=== PATIENT | female | born 1985 | race Caucasian/White ===

== ENCOUNTER 2017-05-23 13:47 | Emergency (ER) | payer MEDICAID, SELFPAY ==
[2017-05-23 13:48] VITALS: BP 152/71; PULSE 64; RESP 16; TEMP 36.3; O2SAT 100; BMI 33.0
--- NOTE | 2017-05-23 14:54 | ED.DCSUM_ITS ---
- ER Visit Summary Date of Service: 05/23/17 Chief Complaint: [Diarrhea] History of Present Illness: The patient is a 31 F [presents to the emergency department with chief complaint of diarrhea that she has had for about 4 days. Patient had multiple watery stools.] Patient has had a headache and some fatigue. Patient complains of hunger pains even though she eats. Patient denies any sick contacts. Today the patient became concerned because she saw something in her stool that looked like a small worm. Patient states that stool seemed somewhat formed and was not watery today. She has not been losing weight. She denies eating any undercooked food or traveling out of the country. Physical Examination: [HEENT-PERRLA, EOMI. Cranial nerves II through XII grossly intact. TMs clear. Mucous membranes moist. No adenopathy. Cardiovascular-regular rate and rhythm without murmur or ectopy Lungs-clear to auscultation, chest wall stable without crepitus or subcu emphysema Abdomen-normoactive bowel sounds, soft, nontender, no rebound or rigidity, no peritoneal signs. Extremities-intact ?4, normal range of motion, normal pulses, atraumatic] Test Results: [Stool was sent for enteric pathogens, ova and parasites, and culture.] Emergency Department Course and Treatment: [] Treatment Plan: [Patient is requested treatment for worms and will start on mebendazole] Disposition: [Discharge] Impression: [Diarrhea] This note was generated with Power Vision dictation software. It may contain incorrect words, spelling, and punctuation that were not noted in review of the chart prior to signing ED Disposition - Plan for ED Patient: Chief Complaint: Abd Pain Referrals: Care Physician,No Primary [Primary Care Provider] -
--- NOTE | 2017-05-23 14:54 | ED.DEP ---
ED Disposition - Plan for ED Patient: Chief Complaint: Abd Pain Instructions: ED Diet Vomiting Diarrhea, ED Gastroenteritis Report Pend Prescriptions: Mebendazole [Emverm] 100 mg PO BID #6 tab.chew Referrals: Care Physician,No Primary [Primary Care Provider] - Spike Lopez MD [STAFF PHYSICIAN] - 3-5 Days
--- NOTE | 2017-05-23 14:58 | ED.RN ---
PT REFUSED PERIPHERAL IV. ORDER CANCELLED.
[2017-05-23 15:23] VITALS: BP 114/66; PULSE 64; RESP 16
== END 2017-05-23 15:23 | disposition home or self-care (01) ==
LOC: ED 14:58
PROVIDERS: Emergency Provider Emergency Medicine
DX: R19.7 Diarrhea, unspecified (principal); Z72.0 Tobacco use
CPT/HCPCS: 87177; 87209; 87506; 99282

== ENCOUNTER → 2017-06-20 10:36 | Outpatient (CLI) | payer MEDICAID, SELFPAY ==
[2017-06-26 13:46] LABS: HPV Reflexed? NOT INDICATED
== END ==
PROVIDERS: Visit Provider Obstetrics & Gynecology
DX: Z12.4 Encounter for screening for malignant neoplasm of cervix (principal); Z12.72 Encounter for screening for malignant neoplasm of vagina
CPT/HCPCS: 88175; G0145

== ENCOUNTER → 2017-09-17 10:10 | Outpatient (CLI) | payer MEDICAID, SELFPAY ==
[2017-09-17 19:57] LABS: Chlamydia Trachomatis by PCR Negative (Negative); Neisserai gonorrhoeae by PCR Negative (Negative); Probe Check PASS; Sample Adequacy Control PASS; Specimen Processing Control PASS
== END ==
PROVIDERS: Visit Provider Obstetrics & Gynecology
DX: Z11.3 Encounter for screening for infections with a predominantly sexual mode of transmission (principal)
CPT/HCPCS: 87491; 87591

== ENCOUNTER 2020-06-02 09:51 | Emergency (ER) | payer MEDICAID, SELFPAY ==
[2020-06-02 09:52] VITALS: BP 119/79; PULSE 68; RESP 18; TEMP 36.4; O2SAT 99; BMI 40.3
--- NOTE | 2020-06-02 10:22 | RAD_ITS ---
STUDY: X-RAY CHEST REASON FOR EXAM: Female, 34 years old. Dyspnea TECHNIQUE: Single AP portable view of the chest. COMPARISON: None. FINDINGS: The lungs are clear and expanded. There is no demonstrated pleural abnormality. Normal size heart. Normal mediastinum and roya. Normal visualized pulmonary arteries. Normal visualized aortic arch and descending thoracic aorta. Normal visualized thoracic spine. Normal visualized ribs, clavicles, and shoulders. There is no demonstrated abnormality of the visualized soft tissue structures of the upper abdomen. RAD/Chest 1 View (Portable) IMPRESSION: Normal x-ray examination of the chest. Electronically Signed: Jimmy Perla MD at 10:46 EDT , Service support ,
--- NOTE | 2020-06-02 10:22 | EKG12_ITS ---
Test Reason : CP Blood Pressure : / mmHG Vent. Rate : 065 BPM Atrial Rate : 065 BPM P-R Int : 152 ms QRS Dur : 094 ms QT Int : 400 ms P-R-T Axes : 031 051 030 degrees QTc Int : 416 ms Normal sinus rhythm with sinus arrhythmia Normal ECG Confirmed by CHADWICK FAIR, SOTO ([id number]), digital editor KAREN PINZON ([id number]) on 06/06/2020 1:28:20 PM Referred By: Confirmed By:EMILI GENAO MD
--- NOTE | 2020-06-02 10:22 | ED.VIS.GEN ---
History of Present Illness Chief Complaint: Bite Informant: Patient Narrative: Patient states that 4 days ago she was bit by a yellow spider on her left ear multiple times. She states the ear is red. She has an itchy sensation coming down her lateral left neck anteriorly. She states that she is a smoker. This morning she attempted to cough and it took her longer than normal and more force to expectorate some phlegm. She tells me that now she has like a burning sensation in her chest. At work her employer wanted her to be evaluated. Patient denies any fevers. No diarrhea or vomiting. She has not worn any earrings for months. She denies any drainage out of the ear holes. Past Medical History - Allergies and Home Meds Allergies/Adverse Reactions: Allergies No Known Allergies Allergy (Verified 06/02/20 09:54) Primary Care Physician: Palak Gonzalez MD [STAFF PHYSICIAN] - 1 Week if not improving Past Medical History: None Surgical History: noncontributory Lives: With Family Smoking Status: Current every day smoker Drugs: None Review of Systems General: Denies: Chills, Fever, Sweats Eyes: Denies: Visual changes - bilaterally, Diplopia ENT: Reports: Left ear pain. Denies: Rhinorrhea, Sore throat Cardiovascular: Reports: Chest pain. Denies: Palpitations Respiratory: Reports: Dyspnea, Cough. Denies: Dyspnea on exertion Gastrointestinal: Denies: Abdominal pain, Nausea, Vomiting, Diarrhea, Melena, Hematochezia Genitourinary: Denies: Dysuria, Hematuria, Frequency Musculoskeletal: Reports: Neck pain - Neck itching. Denies: Back pain, Extremity Pain Skin: Denies: Rash, Wounds Neurological: Denies: Headache, Weakness, Numbness Physical Exam Vital Signs/Narrative: Vital Signs Temp Pulse Resp BP Pulse Ox 06/02/20 09:52 97.6 F L 68 18 119/79 99 Inital Vital Signs reviewed: Yes General: Well nourished, Well developed, No Acute Distress Head: Normocephalic, Atraumatic Eyes: Perrl, EOMI ENT: Moist mucous membranes, No rhinorrhea, - - The right inferior earlobe is erythematous and mildly swollen when compared to left. No drainage. No abscess noted. There are few scattered lymph nodes on the left anterior lymph node chain. All less than 1 cm. Ear canal normal Neck: Supple, Nontender Cardiovascular: Regular rate, Regular rhythm, No murmurs Respiratory: No distress, CTA bilaterally, Chest nontender Abdomen: Soft, Nontender, Nondistended, Normal bowel sounds Back: Nontender, Normal Inspection Extremities: Nontender, No edema Skin: Normal color, No rash Neurological: Alert, Oriented x3, Cranial nerves II-XII grossly intact, Normal Strength, Normal Sensation Psychological: Normal affect, Normal Mood Diagnostic/Tx/Re-eval Clinical Impression(s) from Imaging Studies Chest X-Ray 06/02/20 10:22 IMPRESSION: Normal x-ray examination of the chest. Electronically Signed: Jimmy Perla MD at 10:46 EDT , Service support , - EKG Initial EKG Interpretation: Sinus Rhythm - EKG demonstrates a normal sinus rhythm with sinus arrhythmia at a rate of 65 no concerning features of ACS or ectopy. - Medical Decision Making My interpretation of the single view portable chest x-ray is no acute process. Think the patient's chest discomfort is most likely due to her straining to cough this morning. As far as the ear we will treat with Keflex. Follow-up with primary care if not improving return if worsening or concerns ED Disposition - Plan for ED Patient: Disposition: Home or Assisted Living Diagnosis: Cellulitis of left ear, Chest pain Instructions: ED Cellulitis Prescriptions: Cephalexin [Keflex] 500 mg PO Q6 #40 capsule Transmission Status: Received by [facility] [id number] Additional Instructions: Follow-up with your primary care physician in 1 week if not improving or any concerns
== END 2020-06-02 11:39 | disposition home or self-care (01) ==
PROVIDERS: Emergency Provider Emergency Medicine; PCP Nurse Practitioner Family
DX: H60.12 Cellulitis of left external ear (principal); R07.9 Chest pain, unspecified; F17.200 Nicotine dependence, unspecified, uncomplicated
CPT/HCPCS: 71045; 93005; 99282

== ENCOUNTER 2022-07-14 17:29 | Emergency (ER) | payer MEDICAID, SELFPAY ==
[2022-07-14 17:30] VITALS: BP 151/88; PULSE 109; RESP 16; TEMP 37.2; O2SAT 100; BMI 43.1
--- NOTE | 2022-07-14 17:43 | EX.ED.DYSGE1 ---
HPI History of Present Illness Chief Complaint: Sore Throat Informant: patient Onset/Context/Timing Onset: Today Current Severity: Moderate Maximum Severity: Moderate Narrative Narrative: Patient presents secondary to sore throat, headache, body aches, fever. She states symptoms started this morning. No significant cough. She took Tylenol earlier this morning for her fever. [facility] Medical History Anxiety and depression Hx of gastroesophageal reflux (GERD) Neuropathy Home Medications escitalopram oxalate 5 mg tablet 20 mg PO DAILY 06/02/20 [History Last Taken Unknown] gabapentin 300 mg capsule 800 mg PO Q8 06/02/20 [History Last Taken Unknown] ibuprofen 800 mg tablet 800 mg PO DAILY 07/14/22 [History Last Taken Unknown] omeprazole 20 mg capsule,delayed release 20 mg PO DAILY 07/14/22 [History Last Taken Unknown] Allergy/AdvReac Type Severity Reaction Status Date / Time No Known Allergies Allergy Verified 07/14/22 17:31 Social History Smoking Status: Current every day smoker tobacco type: cigarettes ROS ROS ED Constitutional Constitutional ED: Reports chills and fever(s) Eyes Eyes: Denies change in vision or discharge from eye(s) ENT ENT ED: Reports sore throat; Denies discharge from eye(s) or rhinorrhea Cardiovascular Cardiovascular: Denies chest pain or palpitations Respiratory/Chest Respiratory/Chest: Denies cough or dyspnea Gastrointestinal Gastrointestinal: Denies abdominal pain, diarrhea, nausea or vomiting Genitourinary Genitourinary ED: Denies difficulty urinating or dysuria Musculoskeletal Musculoskeletal: Reports myalgias; Denies back pain or extremity pain Integumentary Denies Abrasions or rash Neurologic Neurologic: Reports headache(s); Denies weakness Psychiatric Psychiatric: Denies anxiety or depression Allergic/Immunologic Allergic/Immunologic ED: Denies lip swelling or urticaria EXAM Physical Exam Const Vital Signs: 07/14/22 17:30 07/14/22 17:57 Temperature 98.9 F Temperature Source Temporal Pulse Rate 109 H Respiratory Rate 16 Respiratory Effort Normal Non-Labored Blood Pressure 151/88 H Blood Pressure Mean 109 Pulse Ox 100 Oxygen Delivery Method Room Air Positive well nourished and well developed General Appearance ED: well developed HEENT Reports normocephalic and head/scalp atraumatic HEENT Narrative: Patient speaks with a strong voice and tolerate secretions well. Posterior pharynx examination reveals minimal erythema. Uvula midline. Eyes PERRL and EOMs intact bilaterally Neck supple Chest Wall inspection of chest normal and palpation of chest normal Resp normal respiratory effort and clear to auscultation bilaterally Cardio regular rate and regular rhythm GI non-tender Auscultation: hypoactive bowel sounds Palpation: soft Extremity normal to inspection Neuro oriented x3 and no sensory deficits noted Sensorium / Orientation: alert Motor Exam: strength 5/5 throughout Psych Mood & Affect: anxious Skin no rashes or lesions noted MDM MDM MDM Narrative Medical decision making narrative: Rapid strep obtained along with a swab for COVID and influenza. Patient given naproxen. Treatment and Re-Evaluation :: Strep test is positive. Swab for COVID and influenza is negative. Test results discussed with the patient. She would prefer an IM injection of Bicillin LA at this time and is to be provided. Return instructions given. Discharge Plan Triage Chief Complaint: Sore Throat ED Provider: Rebekah Post Dx/Rx/DC Orders Clinical Impression: Acute streptococcal pharyngitis Instructions: ED Pharyngitis, Strep (Confirmed) Prescriptions: No Action gabapentin 300 MG capsule 800 mg PO Q8 escitalopram oxalate 5 MG tablet 20 mg PO DAILY omeprazole 20 mg capsule,delayed release(DR/EC) 20 mg PO DAILY ibuprofen 800 MG tablet 800 mg PO DAILY Primary Care Provider: Sushma Lindsey NP Referrals: Sushma Lindsey NP, [employer] ASSEMBLER-C [Primary Care Provider] - 1-2 Weeks Disposition Disposition: Home, Self Care
[2022-07-14] MEDS: Naproxen 500 MG Tablet PO (17:54)
[2022-07-14] MEDS: Penicillin G Benzathine 1.2 MU/2 ML Syringe IM (18:57)
== END 2022-07-14 19:10 | disposition home or self-care (01) ==
PROVIDERS: Emergency Provider Emergency Medicine; PCP Nurse Practitioner Family; Visit Provider Emergency Medicine
DX: J02.0 Streptococcal pharyngitis (principal); F17.210 Nicotine dependence, cigarettes, uncomplicated; R51.9 Headache, unspecified
CPT/HCPCS: 87428; 87880; 96372; 99282

== ENCOUNTER 2022-09-10 14:30 | Emergency (ER) | payer MEDICAID, SELFPAY ==
[2022-09-10 14:32] VITALS: BP 154/94; PULSE 87; RESP 18; TEMP 36.3; O2SAT 97; BMI 37.7
--- NOTE | 2022-09-10 14:51 | EKG12_ITS ---
Test Reason : general Blood Pressure : / mmHG Vent. Rate : 073 BPM Atrial Rate : 073 BPM P-R Int : 162 ms QRS Dur : 092 ms QT Int : 376 ms P-R-T Axes : 041 038 019 degrees QTc Int : 414 ms Normal sinus rhythm Normal ECG Confirmed by CHADWICK FAIR, SOTO ([id number]), food editor KAREN PINZON ([id number]) on 09/12/2022 11:30:49 AM Referred By: Confirmed By:EMILI GENAO MD
--- NOTE | 2022-09-10 14:52 | EDS_ITS ---
HPI History of Present Illness Chief Complaint: General Illness Informant: patient Narrative Narrative: Presents with multiple complaints. She states she thinks her symptoms started a couple weeks ago. But because she has chronic pains in many areas it is hard to tell when the pain changed. It sounds like she started with frequent urination and pressure with urination. She was seen in urgent care a week ago and had a urinalysis and was told she does not have a UTI. But then she has developed some pain along the right flank. But she always has back pain and sciatica so it is a little hard to tell when the pain changed. But the pain also seems to radiate toward the right lower quadrant and a little suprapubic area. She might be a little bit nauseated off-and-on but that seems to have started more with a slight headache that she has. Her appetite has been down but she has not vomited. She is still eating and drinking. She has had some soft bowel movements but no blood. No fevers or chills at any time. This the pain is worse sometimes if she moves a certain way. She also had her rubbed the area last night and he had a spot that hurt a lot in her right lower back. She also complains that because she feels bad and not eating and drinking as much she has developed a migraine. But the primary reason for coming in is the back abdominal and urinary symptoms. She made an appointment to see her doctor but she missed the appointment this afternoon so she came in here for evaluation. I did review her med list. She is on the 4 meds listed as well as long-term doxycycline for my skin. But it sounds like none of these are new or different. Last menstrual period just ended. [facility] Medical History Anxiety and depression Hx of gastroesophageal reflux (GERD) Neuropathy Home Medications escitalopram oxalate 5 mg tablet 20 mg PO DAILY 06/02/20 [History Last Taken Unknown] gabapentin 300 mg capsule 800 mg PO Q8 06/02/20 [History Last Taken Unknown] ibuprofen 800 mg tablet 800 mg PO DAILY 07/14/22 [History Last Taken Unknown] omeprazole 20 mg capsule,delayed release 20 mg PO DAILY 07/14/22 [History Last Taken Unknown] ondansetron 4 mg disintegrating tablet 4 mg PO Q8H PRN PRN Nausea #10 tabs 09/10/22 [Rx Last Taken Unknown] Allergy/AdvReac Type Severity Reaction Status Date / Time No Known Allergies Allergy Verified 09/10/22 14:32 Social History Smoking Status: Current every day smoker tobacco type: cigarettes ROS ROS ED ROS Narrative A complete review of systems was performed and is negative except as documented in the history of present illness. Some specific details below. Constitutional: No recent fevers or chills. She does not feel well but no malaise or myalgias. EYE: No visual complaints or pain. No change in color. ENT: No difficulty swallowing. No swelling. No pain. CV: No chest pain or palpitations. Respiratory: No dyspnea. No hemoptysis. No difficulty taking breaths. GI: Please see history of present illness. She also does state that occasiona lly she has had some pain in the right upper quadrant but that is just intermittent. : No frequency dysuria or hematuria. Musculoskeletal: No recent trauma. She has chronic lower back pain and sciatica for which she takes gabapentin and has had multiple injections. But she thinks the pain she is having in her back now is likely different. Skin: No rash. Nondiaphoretic. Neuro: No weakness or numbness. Endocrine: No polyuria or polydipsia. EXAM Physical Exam Narrative Exam Narrative: CONSTITUTIONAL: Patient is nontoxic in appearance. The patient looks comfortable. HEENT: No notable trauma. Mucous membranes still moist. No sinus tenderness. No indication of pain with swallowing. EYES: No conjunctival injection. No icterus. CARDIOVASCULAR: Regular rate. Regular rhythm. No notable murmur. No JVD. RESPIRATORY: No respiratory distress. Breathing is unlabored. No wheezes. No rhonchi. No rales. No pain with a deep breath. GASTROINTESTINAL: Not distended. Bowel sounds are normal. Despite this symptoms I am not really getting any notable tenderness anywhere on exam. Exam is limited somewhat due to obesity. There is no rebound or guarding. No mass. GENITOURINARY: No tenderness over the bladder. No CVA tenderness. I was not able to find the spot on her back that was tender last night. MUSCULOSKELETAL: Atraumatic. No peripheral edema. No cord. No tenderness along the deep venous system. No asymmetry. NEUROLOGICAL: Patient is alert and appropriate. No focal deficit noted. SKIN: No noted rashes. No diaphoresis. PSYCHIATRIC: Patient is calm. Mood is appropriate. Const Vital Signs: 09/10/22 14:32 Temperature 97.3 F L Temperature Source Temporal Pulse Rate 87 Respiratory Rate 18 Blood Pressure 154/94 H Blood Pressure Mean 114 Pulse Ox 97 Oxygen Delivery Method Room Air MDM MDM MDM Narrative Medical decision making narrative: Patient CBC is normal other than minimal anemia. Patient's electrolytes are normal other than minimally low potassium which is not the cause of her symptoms and should self correct. Patient's liver function test are all normal. Patient's lipase is negative. Patient serum is negative Patient's urinalysis is negative. I did a pelvic exam with nurse Annie in attendance. She has a scant amount of red blood no discharge or odor. No tenderness. She has a right adnexal tenderness but no cervical motion tenderness. My independent her potation her CT does not show any mass or obstruction. I see no kidney stone. It is read as possible abnormal ovary recommend ultrasound. Ultrasound shows a relatively normal size ovary but they had trouble getting a g ood blood flow to the area but there were engorged vessels near it. Questionable torsion or possible TOA. But this patient is monogamous. She has no discharge. She has no discharge by exam or history. She is not having fevers. She has no white count. I discussed the case with Dr. Oliveros. The patient is comfortable. She is actually sleeping here. She wanted to go home. She was given meds for headache but no pain meds and her headache is better and she is feeling good. She does not fit the picture tubo-ovarian abscess. She also does not fit a good picture of torsion. With her clinical picture it was thought it was not the best thing to put subject her to surgery. She will follow-up with FIXTURE DESIGNER on Saturday. She will call the office tomorrow and leave a message and they will call her Saturday morning to come back in and repeat evaluation and possible ultrasound. She is very comfortable with this plan that she would like to go home. Lab Data Attestation: I reviewed the patient's lab results. Labs: Laboratory Results - last 24 hr 09/10/22 09/10/22 15:00 16:45 WBC 9.3 RBC 4.57 Hgb 11.0 L Hct 35.5 L MCV 77.7 L MCH 24.1 L MCHC 31.0 L RDW Std Deviation 45.9 H RDW Coeff of Glynn 16.4 H Plt Count 289 MPV 9.4 Immature Gran % (Auto) 0.500 Neut % (Auto) 69.6 Lymph % (Auto) 22.4 [place] % (Auto) 5.0 Eos % (Auto) 2.2 Baso % (Auto) 0.3 Absolute Neuts (auto) 6.4 Absolute Lymphs (auto) 2.07 Nucleated RBC % 0 Sodium 138 Potassium 3.3 L Chloride 106 Carbon Dioxide 28.0 Anion Gap 4 L BUN 12 Creatinine 0.66 Estim Creat Clear Calc 115.69 Est GFR (MDRD) Af Amer 131 Est GFR (MDRD) Non-Af 108 BUN/Creatinine Ratio 18.2 Glucose 96 Calcium 9.1 Total Bilirubin 0.20 AST 12 L ALT 23 Alkaline Phosphatase 101 Total Protein 7.8 Albumin 3.2 Globulin 4.6 H Albumin/Globulin Ratio 0.7 L Lipase 25 Serum , Qual NEGATIVE Urine Color Yellow Urine Clarity Clear Urine pH 7.0 Ur Specific [place] 1.010 Urine Protein Negative Urine Glucose (UA) Normal Urine Ketones Negative Urine Occult Blood 50 H Urine Nitrite Negative Urine Bilirubin Negative Urine Urobilinogen Normal Ur Leukocyte Esterase Negative Urine RBC 0-5 SEEN Urine WBC 0 SEEN Ur Squamous Epith Cells 0 SEEN Urine Bacteria 0 SEEN Urine Mucus 0 SEEN Radiography Diagnostic Testing: Clinical Impression(s) from Imaging Studies Abdomen/Pelvis CT 09/10/22 16:12 IMPRESSION: Vague enlargement of the right ovary is suspicious for torsion. Recommend pelvic ultrasound. Electronically Signed: Kin Ochoa MD at 16:48 EDT , ADDENDUM: 09/10/22 1721 IMPRESSION: Vague enlargement of the right ovary is suspicious for torsion. Recommend pelvic ultrasound. N.B. : The above Results were Read Back by Kin Ochoa MD to Vazquez Bahena MD, and understanding confirmed on 09/10/2022 17:14:43 (ET). Electronically Signed: Kin Ochoa MD at 16:48 EDT , Transvaginal US 09/10/22 16:54 IMPRESSION: Prominent right ovary with enlarged surrounding vessels and associated free fluid may represent intermittent torsion versus PID. 2.3 left ovarian cyst. Electronically Signed: Kin Ochoa MD at 18:27 EDT , EKG Initial EKG: Comments: My independent her potation the patient's EKG done for generalized ill feeling shows a normal sinus rhythm with a rate of 73. No ectopy. No acute ST elevation or depression. MD interval, QRS duration and QTc are normal. Management Discussion w/another healthcare provider: Hvac Design Mechanical Engineer Discharge Plan Triage Chief Complaint: General Illness ED Provider: Vazquez Bahena Dx/Rx/DC Orders Clinical Impression: Pelvic pain, Cephalgia, Right lateral abdominal pain Instructions: ED Flank Pain, Uncertain Cause Prescriptions: New ondansetron [ondansetron] 4 mg tablet,disintegrating 4 mg PO Q8H PRN PRN (Reason: Nausea) Qty: 10 0RF No Action gabapentin 300 MG capsule 800 mg PO Q8 escitalopram oxalate 5 MG tablet 20 mg PO DAILY omeprazole 20 mg capsule,delayed release(DR/EC) 20 mg PO DAILY ibuprofen 800 MG tablet 800 mg PO DAILY Primary Care Provider: Sushma Lindsey NP Referrals: Olesya Oliveros DO [Med Staff - Active Staff] - 2 Days (Leave message with your phone number on their office in the morning and they will call you back Saturday morning to be seen that day.) Sushma Lindsey NP, [employer]AW[employer]AKER-[employer] [Primary Care Provider] - Disposition Disposition: Home, Self Care
[2022-09-10] MEDS: 0.9% Normal Saline 1,000 ML 1000 ML IV (15:03)
[2022-09-10] MEDS: proCHLORPERazine 10 MG/2 ML Vial IV (15:03)
[2022-09-10] MEDS: DiphenhydrAMINE 50 MG/ML Syringe IV (15:03)
[2022-09-10 15:15] LABS: Absolute Lymphocyte Count 2.07 X10^3/uL (0.83-4.51); Absolute Neutrophil Count 6.4 X10^3/uL (2.0-7.7); Basophil# 0.03 X10^3/uL; Basophil% 0.3 % (0-1); Eosinophils% 2.2 % (0-5); Hematocrit 35.5 % (37-47); Lymphocyte # 2.07 X10^3/ul (0.83-4.51); Lymphocyte % 22.4 % (19-41); Mean Corpuscular Hgb 24.1 pg (27.0-32.0); Mean Corpuscular Volume 77.7 fL (81-99); Mean Platelet Vol. 9.4 fl (6.2-12.0); Monocyte# 0.46 X10^3/uL; NRBC Flagged by Analyzer 0 % (0-5); Neutrophil # 6.44 X10^3/uL (2.7-7.7); Neutrophil % 69.6 % (47-70); Platelet Count 289 K/mm3 (150-450); RBC Distribution Width CV 16.4 % (11.6-14.6); RBC Distribution Width SD 45.9 fl (35.1-43.9); Red Blood Count 4.57 M/mm3 (4.2-5.4); White Blood Count 9.3 K/mm3 (4.4-11.0)
[2022-09-10 15:27] LABS: ALB/GLOB Ratio 0.7 RATIO (0.9-2.4); AST(SGOT) 12 U/L (15-37); Alanine Aminotransfer ALT/SGPT 23 U/L (13-56); Albumin, Serum 3.2 g/dL (3.2-5.0); Alkaline Phosphatase 101 U/L (45-117); Anion Gap 4 (5-15); BUN 12 mg/dL (7-18); BUN/Creat Ratio 18.2 RATIO (10-20); Calcium,Total 9.1 mg/dL (8.5-10.1); Chloride 106 mmol/L (98-107); Creatinine, Serum 0.66 mg/dL (0.55-1.02); EST Glomerular Filtration Rate 108 mL/min (>60); Est Glom Filt Rate - Afr Amer 131 mL/min (>60); Estimated Creatinine Clearance 115.69 ml/min; Globulin 4.6 g/dL (2.2-4.2); Glucose 96 mg/dL (74-106); Lipase 25 U/L (13-75); Potassium 3.3 mmol/L (3.5-5.1); Protein, Total 7.8 g/dL (6.4-8.2); Sodium Level 138 mmol/L (136-145)
[2022-09-10 16:07] LABS: Internal QC Validated? YES +Cl - CLEAR BKGD; Pregnancy, Serum, hCG Quali. NEGATIVE Negative
--- NOTE | 2022-09-10 16:12 | CT_ITS ---
We are attempting to reach an attending provider to discuss findings. An addendum with communication details will be sent when the communication is complete. INDICATION: Pain EXAMINATION: CT ABDOMEN AND PELVIS WITHOUT CONTRAST - CT Abdomen And Pelvis W/O Contrast Injection TECHNIQUE: Helically acquired images were obtained of the abdomen and pelvis without oral or IV contrast. A radiation dose optimization technique was used for this scan. IV Contrast dosage and agent: None. Oral contrast: None. RADIATION DOSAGE (If Supplied By Facility): CTDIvol = ( 23.99 ) mGy, DLP = ( 1444.49 ) mGycm COMPARISON: None FINDINGS: LOWER CHEST: Lung bases are clear. No cardiomegaly or pericardial effusion. LIVER: Homogeneous. No focal mass. GALLBLADDER AND BILIARY TREE: Small gallbladder calculus. No gallbladder distension or wall edema. No intra- or extrahepatic biliary ductal dilation. PANCREAS: No focal cystic or solid mass. SPLEEN: Normal size without focal cystic or solid mass. ADRENAL GLANDS: 1.5 cm left adrenal gland hypoattenuating nodule, probably adenoma. KIDNEYS AND URETERS: Normal renal size and position. No hydronephrosis. PERITONEUM: No ascites or free air. No other fluid collection. BOWEL: No evidence of acute appendicitis. No stomach or bowel distension. No focal inflammatory change. LYMPH NODES: No enlarged mesenteric or retroperitoneal lymph nodes. VESSELS: Aorta is non-dilated. URINARY BLADDER: Unremarkable. REPRODUCTIVE ORGANS: The right ovary is not well distinguished from the adjacent small bowel, but appears enlarged. ABDOMINAL WALL: No discrete abdominal or pelvic wall hernia. BONES: Normal thoracolumbar vertebral alignment. CT/Abdomen/Pelvis without Cont IMPRESSION: Vague enlargement of the right ovary is suspicious for torsion. Recommend pelvic ultrasound. Electronically Signed: Kin Ochoa MD at 16:48 EDT ,
--- NOTE | 2022-09-10 16:54 | US_ITS ---
INDICATION: PELVIC PAIN, R/O TORSION EXAMINATION: Ultrasound US Transvaginal Non-OB TECHNIQUE: Transvaginal (for optimal evaluation of the adnexa) pelvic ultrasound was performed. Grayscale, spectral waveform, and color flow Doppler evaluation of the adnexa. COMPARISON: Same day CT abdomen/pelvis FINDINGS: UTERUS: Anteverted. The uterus measures 2.0 x 5.0 x 3.9 cm. There is no uterine mass. The endometrial stripe measures 6.5 mm in AP diameter which is within normal limits. RIGHT OVARY: 4.7 x 4.5 x 3.7 cm. Non-enlarged, normal echogenicity. Doppler flow is difficult to obtain, and there are adjacent dilated vessels. LEFT OVARY: 4.0 x 2.4 x 2.5 cm. Non-enlarged, normal echogenicity. 2.3 x 2.1 x 2.0 cm cyst. There is normal arterial inflow and venous outflow present in the left ovary. FREE FLUID: Fluid surrounds right ovary. US/Transvaginal Non- IMPRESSION: Prominent right ovary with enlarged surrounding vessels and associated free fluid may represent intermittent torsion versus PID. 2.3 left ovarian cyst. Electronically Signed: Kin Ochoa MD at 18:27 EDT ,
[2022-09-10 17:00] LABS: Bacteria 0 SEEN /hpf (None Seen); Mucous, Urine 0 SEEN /hpf (<or=2+); Squamous Epithelial Cells - UA 0 SEEN /hpf (5-10); White Blood Cells 0 SEEN /hpf (0-5)
[2022-09-10 17:02] LABS: Color, Urine Yellow (Yellow); Glucose, Dipstick Normal (Normal); Ketone-Dipstick Negative (Negative); Leukocyte Esterase-Dipstick Negative /ul (Negative); Nitrite-Dipstick Negative (Negative); Occult Blood-Urine 50 /ul (Negative); Protein-Dipstick Negative (Negative); Urine Bilirubin Dipstick Negative (Negative); Urine Clarity Clear (Clear); Urine Urobilinogen Normal (Normal)
[2022-09-10 17:15] LABS: Red Blood Cells-Urine 0-5 SEEN /hpf (0-5)
== END 2022-09-10 22:01 | disposition home or self-care (01) ==
PROVIDERS: Emergency Provider Emergency Medicine; PCP Nurse Practitioner Family; Visit Provider Emergency Medicine
DX: R10.2 Pelvic and perineal pain (principal); G89.29 Other chronic pain; F17.290 Nicotine dependence, other tobacco product, uncomplicated; M54.9 Dorsalgia, unspecified; R51.9 Headache, unspecified; R10.9 Unspecified abdominal pain
CPT/HCPCS: 74176; 76830; 80053; 81001; 83690; 84703; 85025; 87086; 87088; 93005; 93976; 96361; 96374; 96375; 99283; J7030

== ENCOUNTER 2023-04-07 12:51 | Emergency (ER) | payer MEDICAID, SELFPAY ==
[2023-04-07 12:53] VITALS: BP 125/71; PULSE 82; RESP 16; TEMP 35.8; O2SAT 99; BMI 42.2
--- NOTE | 2023-04-07 13:04 | EDS_ITS ---
HPI <DORA Wu - Last Filed: 04/07/23 15:02> History of Present Illness Chief Complaint: Abd Pain Narrative Narrative: Patient is a 37-year-old female with history of chronic back pain, anxiety, depression, tobacco use who presents to the emergency department for ongoing abdominal cramping, nausea. Patient states she wakes up nauseous every morning, throughout the day, does get better. Today, she had some more significant pain, she went to urgent care who referred her here. Patient states that she has seen her primary care physician regarding this issue, she has been to pain management. Patient does use marijuana at nighttime and the oral form for her chronic back pain. She denies any blood in her stool, vomit. PFSH <DORA Wu - Last Filed: 04/07/23 15:02> PFSH Medical History Anxiety and depression Hx of gastroesophageal reflux (GERD) Neuropathy Home Medications escitalopram oxalate 5 mg tablet 20 mg PO DAILY 06/02/20 [History Last Taken Unknown] gabapentin 300 mg capsule 800 mg PO Q8 06/02/20 [History Last Taken Unknown] ibuprofen 800 mg tablet 800 mg PO DAILY 07/14/22 [History Last Taken Unknown] omeprazole 20 mg capsule,delayed release 20 mg PO DAILY 07/14/22 [History Last Taken Unknown] ondansetron 4 mg disintegrating tablet 4 mg PO Q8H PRN PRN Nausea #10 tabs 09/10/22 [Rx Last Taken Unknown] dicyclomine 20 mg tablet 20 mg PO TID #20 tabs 04/07/23 [Rx Last Taken Unknown] metoclopramide HCl 10 mg tablet (Reglan) 10 mg PO Q6H PRN nausea and vomiting #20 tabs 04/07/23 [Rx Last Taken Unknown] Allergy/AdvReac Type Severity Reaction Status Date / Time No Known Allergies Allergy Verified 04/07/23 12:53 Social History Smoking Status: Current every day smoker tobacco type: cigarettes ROS <DORA Wu - Last Filed: 04/07/23 15:02> ROS ED ROS Narrative Constitutional: Negative for fever, chills, weight loss, weakness Eyes: Negative for vision loss, vision change, double vision ENT: Negative for any sore throat, ear pain, congestion Cardiovascular: Negative for any chest pain, tightness, palpitations Respiratory: Negative for any cough, sputum production, hemoptysis, dyspnea, dyspnea on exertion, orthopnea Gastrointestinal: Negative for any diarrhea, constipation, blood in stool, blood in vomit. Positive for abdominal pain, nausea and vomiting : Negative for any urinary frequency, dysuria, retention, blood in urine Muscle skeletal: Negative for any myalgias, arthralgias, neck pain, back pain Neurological: Negative for any headache, syncope, paresthesias, dizziness Skin: Negative for any rashes, lumps, itching, abrasions, lacerations Psychiatric: Negative for any depression, anxiety, stress, suicidal ideation, homicidal ideation Hematologic: Negative for any easy bruising, excessive bruising, easy bleeding Allergies: Negative for any eczema, hives, rash EXAM <DORA Wu - Last Filed: 04/07/23 15:02> Physical Exam Narrative Exam Narrative: Vital signs reviewed. Patient appears to be in no obvious respiratory distress. HEET: Head normocephalic atraumatic, TMs clear bilaterally. Posterior pharynx is clear, moist mucous membranes. Nares clear bilaterally. Neck: Supple with no lymphadenopathy or tenderness. No signs of meningismus. Cardiac: Regular rate and rhythm no murmurs gallops or rubs, equal peripheral pulses bilaterally. Respiratory: Lungs clear to auscultation bilaterally. No chest tenderness. Abdomen: Soft, nontender, nondistended. No abdominal bruit or pulsatile masses. No hepatosplenomegaly Extremities: No peripheral edema, no signs of gross trauma or deformity. Active full range of motion of all extremities. Neuro: Cranial nerves II through XII intact, no focal neurological deficits. Skin: Clean dry and intact with no rash, purpura, petechiae, vesicles or pustules. Backs/flank: No CVA tenderness, no midline spinal tenderness, no deformity. Psych: Normal mood and affect. No SI, HI or acute psychosis. Const Vital Signs: 04/07/23 12:53 Temperature 96.5 F L Temperature Source Temporal Pulse Rate 82 Respiratory Rate 16 Blood Pressure 125/71 H Blood Pressure Mean 89 Pulse Ox 99 Positive well nourished and well developed General Appearance ED: well developed <Dr. Evans Jimenez MD - Last Filed: 04/07/23 13:14> Physical Exam Const Vital Signs: 04/07/23 12:53 Temperature 96.5 F L Temperature Source Temporal Pulse Rate 82 Respiratory Rate 16 Blood Pressure 125/71 H Blood Pressure Mean 89 Pulse Ox 99 MDM <Kin Gayle NPWill - Last Filed: 04/07/23 15:02> [facility] Lab Data Labs: Laboratory Results - last 24 hr 04/07/23 13:05 WBC 10.8 RBC 4.74 Hgb 11.2 L Hct 36.6 L MCV 77.2 L MCH 23.6 L MCHC 30.6 L RDW Std Deviation 46.0 H RDW Coeff of Glynn 16.4 H Plt Count 342 MPV 9.9 Immature Gran % (Auto) 0.600 Neut % (Auto) 69.6 Lymph % (Auto) 22.2 Norman % (Auto) 5.3 Eos % (Auto) 1.9 Baso % (Auto) 0.4 Absolute Neuts (auto) 7.5 Absolute Lymphs (auto) 2.39 Nucleated RBC % 0 Sodium 139 Potassium 3.7 Chloride 110 H Carbon Dioxide 26.0 Anion Gap 3 L BUN 16 Creatinine 0.52 L Estim Creat Clear Calc 202.72 Est GFR (MDRD) Af Amer 173 Est GFR (MDRD) Non-Af 143 BUN/Creatinine Ratio 31.0 H Glucose 99 Calcium 9.4 Total Bilirubin 0.40 AST 12 L ALT 22 Alkaline Phosphatase 102 Total Protein 7.7 Albumin 3.4 Globulin 4.3 H Albumin/Globulin Ratio 0.8 L Lipase 22 Serum , Qual NEGATIVE Treatment and Re-Evaluation :: Patient appears generally well, patient appears nontoxic, vital signs are stable. Presenting to the emergency department with acute on chronic abdominal pain, nausea. Patient differential diagnosis includes bowel obstruction, acute on chronic pain, gastroparesis, acute appendicitis. Patient's vital signs are stable, patient appears nontoxic. Patient will receive basic laboratory values, IV fluids, Zofran and Toradol and Bentyl. Patient be reevaluated. On reevaluation,The patient is feeling much better. Patient has minimal nausea, patient states the pain is much more improved. Patient's CBC was unremarkable, hemoglobin 11.2 which is stable. Patient's chemistries showed a creatinine of 0.52 to slightly low, this is baseline, lipase was normal, patient is not . At this time, patient was able to pass a p.o. challenge at this time, do feel the patient is stable for discharge. The patient will follow-up outpatient, will be given GI referral. Patient be given Bentyl as well as Reglan for home. Patient was given strict return precaution. Urinalysis was negative. Patient will follow-up outpatient <Dr. Evans Jimenez MD - Last Filed: 04/07/23 13:14> [facility] Narrative Medical decision making narrative: I have personally performed a face to face assessment of the patient and have reviewed the JANELL Note. I performed a substantive portion of the visit including all aspects of the following. My chavez findings include: History is 37-year-old female with prior tubal ligation complaining of lower abdominal cramping last several days. Prior history of same without specific diagnosis. No fever. No dysuria. No vaginal bleeding or discharge. No other prior abdominal surgeries. Exam is [well-appearing 37-year-old female. Vital signs are stable and afebrile. H EENT exam unremarkable. Moist mucous membranes. Lungs clear. Heart regular rhythm. Abdomen soft nondistended normal bowel sounds no peritoneal signs. Very minimal suprapubic discomfort. No localizing right upper or McBurney's point tenderness. No hernia or mass. No distention. Back nontender. Moving all 4 extremities. Neurologically patient is awake and alert with no focal motor deficits.] Medical Decision Making [37-year-old female with lower abdominal pain. Prior tubal ligation. Prior workup in September with negative labs and unremarkable CAT scan at that time.] Other additions or changes: [None] Lab Data Labs: Laboratory Results - last 24 hr 04/07/23 13:05 WBC 10.8 RBC 4.74 Hgb 11.2 L Hct 36.6 L MCV 77.2 L MCH 23.6 L MCHC 30.6 L RDW Std Deviation 46.0 H RDW Coeff of Glynn 16.4 H Plt Count 342 MPV 9.9 Immature Gran % (Auto) 0.600 Neut % (Auto) 69.6 Lymph % (Auto) 22.2 Norman % (Auto) 5.3 Eos % (Auto) 1.9 Baso % (Auto) 0.4 Absolute Neuts (auto) 7.5 Absolute Lymphs (auto) 2.39 Nucleated RBC % 0 Sodium 139 Potassium 3.7 Chloride 110 H Carbon Dioxide 26.0 Anion Gap 3 L BUN 16 Creatinine 0.52 L Estim Creat Clear Calc 202.72 Est GFR (MDRD) Af Amer 173 Est GFR (MDRD) Non-Af 143 BUN/Creatinine Ratio 31.0 H Glucose 99 Calcium 9.4 Total Bilirubin 0.40 AST 12 L ALT 22 Alkaline Phosphatase 102 Total Protein 7.7 Albumin 3.4 Globulin 4.3 H Albumin/Globulin Ratio 0.8 L Lipase 22 Serum , Qual NEGATIVE Discharge Plan Triage Chief Complaint: Abd Pain ED Midlevel Provider: Kin Gayle ED Provider: Evans Jimenez Dx/Rx/DC Orders Clinical Impression: Nausea & vomiting, Abdominal pain Prescriptions: New metoclopramide HCl [Reglan] 10 mg tablet 10 mg PO Q6H PRN (Reason: nausea and vomiting) Qty: 20 0RF dicyclomine 20 mg tablet 20 mg PO TID Qty: 20 0RF No Action gabapentin 300 MG capsule 800 mg PO Q8 escitalopram oxalate 5 MG tablet 20 mg PO DAILY omeprazole 20 mg capsule,delayed release(DR/EC) 20 mg PO DAILY ibuprofen 800 MG tablet 800 mg PO DAILY ondansetron [ondansetron] 4 mg tablet,disintegrating 4 mg PO Q8H PRN PRN (Reason: Nausea) Qty: 10 0RF Primary Care Provider: Sushma Lindsey NP Referrals: Villa Li DO [Med Staff - Active Staff] - Sushma Lindsey NP, [facility] [Primary Care Provider] - Activity Restrictions/Additional Instructions: Take the antibiotic, follow-up with GI Disposition Disposition: Home, Self Care
[2023-04-07 13:12] LABS: Absolute Lymphocyte Count 2.39 X10^3/uL (0.83-4.51); Absolute Neutrophil Count 7.5 X10^3/uL (2.0-7.7); Basophil# 0.04 X10^3/uL; Basophil% 0.4 % (0-1); Eosinophil# 0.21 X10^3/uL; Eosinophils% 1.9 % (0-5); Hematocrit 36.6 % (37-47); Hemoglobin 11.2 g/dL (12.0-15.0); Lymphocyte # 2.39 X10^3/ul (0.83-4.51); Lymphocyte % 22.2 % (19-41); Mean Corp Hgb Conc 30.6 g/dL (32-36); Mean Corpuscular Hgb 23.6 pg (27.0-32.0); Mean Corpuscular Volume 77.2 fL (81-99); Mean Platelet Vol. 9.9 fl (6.2-12.0); Monocyte# 0.57 X10^3/uL; Monocyte% 5.3 % (0-10); NRBC Flagged by Analyzer 0 % (0-5); Neutrophil # 7.49 X10^3/uL (2.7-7.7); Neutrophil % 69.6 % (47-70); Platelet Count 342 K/mm3 (150-450); RBC Distribution Width CV 16.4 % (11.6-14.6); Red Blood Count 4.74 M/mm3 (4.2-5.4); White Blood Count 10.8 K/mm3 (4.4-11.0)
[2023-04-07] MEDS: 0.9% Normal Saline (1000mL) 1,000 ML 1000 ML IV (13:14)
[2023-04-07] MEDS: Ondansetron 4 MG/2 ML Vial IV (13:14)
[2023-04-07] MEDS: Ketorolac 15 MG/ML Vial IV (13:15)
[2023-04-07] MEDS: Dicyclomine 20 MG/2 ML Vial IM (13:15)
--- OUTSIDE RECORDS SUMMARY | 2023-04-07 13:20 | XMS RPT_ITS | CCD ---
Author Name Unknown Address [address] [place] [address] Organization [facility] Care Team Providers Care Spa Manager/Esthetician Name Role Phone ELISSA OSPINA Attending Unavailable Lisbeth MUD MILL TENDER.ANDREINA, Matthew Primary Care Provider Lisbeth MUD MILL TENDER.WEATHERSTRIP MACHINE OPERATOR, Matthew Primary Care Provider Lisbeth MUD MILL TENDER.ANDREINA, Matthew Primary Care Provider Lisbeth MUD MILL TENDER.ANDREINA, Matthew Primary Care Provider Jay Lazo Primary Care Provider Unavailabl e LISBETH, MATTHEW Primary Care Unavailable LISBETH, MATTHEW Primary Care Unavailable LISBETH, MATTHEW Attending Unavailable LISBETH, MATTHEW Primary Care Unavailable LISBETH, MATTHEW Attending Unavailable LISBETH, MATTHEW Primary Care Unavailable LISBETH, MATTHEW Attending Unavailable PODLOGARSIMRAN Attending Unavailable LISBETH, MATTHEW Primary Care Unavailable LISBETH, MATTHEW Primary Care Unavailable LISBETH, MATTHEW Attending Unavailable PODLOGARSIMRAN Attending Unavailable LISBETH, MATTHEW Primary Care Unavailable LISBETH, MATTHEW Referring Unavailable LISBETH, MATTHEW Primary Care Unavailable LUZ MARINA SABA Attending Unavailable LISBETH, MATTHEW Primary Care Unavailable LISBETH, MATTHEW Primary Care Unavailable LISBETH, MATTHEW Referring Unavailable LISBETH, MATTHEW Primary Care Unavailable LISBETH, MATTHEW Primary Care Unavailable LISBETH, MATTHEW Attending Unavailable LISBETH, MATTHEW Primary Care Unavailable LISBETH, MATTHEW Attending Unavailable LISBETH, MATTHEW Referring Unavailable LISBETH, MATTHEW Primary Care Unavailable LISBETH, MATTHEW Primary Care Unavailable LISBETH, MATTHEW Referring Unavailable LISBETH, MATTHEW Primary Care Unavailable LISBETH, MATTHEW Attending Unavailable LISBETH, MATTHEW Primary Care Unavailable LISBETH, MATTHEW Attending Unavailable LISBETH, MATTHEW Primary Care Unavailable LISBETH, MATTHEW Primary Care Unavailable LISBETH, MATTHEW Referring Unavailable PREBISH, ELIZABETH Attending Unavailable PREBISH, ELIZABETH Referring Unavailable LISBETH, MATTHEW Primary Care Unavailable NIGEL MORSE Attending Unavailable LISBETH, MATTHEW Primary Care Unavailable PREBISH, ELIZABETH Attending Unavailable LISBETH, MATTHEW Primary Care Unavailable LISBETH, MATTHEW Referring Unavailable FLORENCIA HOLDEN Attending Unavailable Allergies Allergy Classification Reported Allergen(s) Allergy Type Date of Onset Reaction(s) Facility (20 sources) Cat; Translations: [CATS] Propensity to adverse reactions 9 Intolerance [facility] Work Phone: (20 sources) Dog; Translations: [DOGS] Propensity to adverse reactions 9 Intolerance [facility] Work Phone: (20 sources) Grass pollen; Translations: [GRASS POLLEN] Drug Intolerance 9 Intolerance [facility] Work Phone: (20 sources) Mold; Translations: [MOLDS EXTRACT] Drug Intolerance 9 Intolerance [facility] Work Phone: (20 sources) Nicotine; Translations: [NICOTINE] Drug Allergy 0 Rash [facility] Work Phone: Medications Current Medications Medication Drug Class(es) Dates Sig (Normalized) Sig (Original) doxycycline hyclate 100 mg oral tablet (2 sources) Tetracycline-clas s Drug Start: 08-03-2021 End: 08-13-2021 take 1 tablet by mouth twice daily doxycycline (VIBRA-TABS) 100 mg tablet Indications: SOB (shortness of breath) , Chronic sinusitis, unspecified location Take 1 tablet by mouth twice daily for 10 days. 20 tablet 0 08/03/2021 08/13/2021 Active Completed/Discontinued Medications Medication Drug Class(es) Dates Sig (Normalized) Sig (Original) acetaminophen 325 mg / HYDROcodone bitartrate 5 mg oral tablet (11 sources) Opioid Agonist Start: 11-14-2022 End: 12-05-2022 take 1 tablet by mouth twice daily as needed for pain HYDROcodone-acetami nophen (NORCO) 5-325 mg per tablet Indications: Spinal stenosis of lumbar region, unspecified whether neurogenic claudication present , Lumbar back pain with radiculopathy affecting right lower extremity , Foraminal stenosis of lumbar region , Lumbar nerve root impingement , Secondary insomnia Take 1 tablet by mouth twice daily as needed for pain for up to 7 days. 14 tablet 0 11/21/2022 11/27/2022 Discontinued Problems Active Problems Problem Classification Problem Date Documented Da te Episodic/Chronic Administrative/social admission (1 source) Dietary counseling and surveillance; Translations: [Dietary counseling and surveillance] Onset: 02-04-2023 Episodic Anxiety disorders (20 sources) Mixed anxiety and depressive disorder; Translations: [Other specified anxiety disorders] Onset: 12-04-2018 12-04-2018 Chronic Nonspecific chest pain (1 source) Chest discomfort; Translations: [Other chest pain] Episodic Other diseases of kidney and ureters (2 sources) Acquired renal cystic disease; Translations: [Cyst of kidney, acquired] Episodic Other diseases of kidney and ureters (2 sources) Parapelvic renal cyst; Translations: [Cyst of kidney, acquired] Episodic Other gastrointestinal disorders (1 source) Motility disorder of intestine; Translations: [Functional intestinal disorder, unspecified] Episodic Other gastrointestinal disorders (1 source) Fecal incontinence with fecal urgency; Translations: [Full incontinence of feces] 10-19-2022 Episodic Other gastrointestinal disorders (1 source) Abdominal wind pain; Translations: [Gas pain] 10-19-2022 Episodic Other lower respiratory disease (1 source) Dyspnea; Translations: [Shortness of breath] Episodic Other nutritional; endocrine; and metabolic disorders (20 sources) Obese class I; Translations: [Obesity, unspecified] Onset: 12-04-2018 12-04-2018 Chronic Other nutritional; endocrine; and metabolic disorders (2 sources) Severe obesity; Translations: [Morbid (severe) obesity due to excess calories] Onset: 02-04-2023 02-04-2023 Chronic Other nutritional; endocrine; and metabolic disorders (2 sources) Body mass index 40+ - severely obese; Translations: [Body mass index (BMI) 40.0-44.9, adult] Onset: 02-04-2023 02-04-2023 Chronic Other nutritional; endocrine; and metabolic disorders (1 source) Morbid (severe) obesity due to excess calories; Translations: [Class 3 severe obesity with serious comorbidity in adult, unspecified BMI, unspecified obesity type (HCC)] Onset: 02-04-2023 Chronic Other nutritional; endocrine; and metabolic disorders (1 source) Body mass index (BMI) 40.0-44.9, adult; Translations: [BMI 40.0-44.9, adult (HCC)] Onset: 02-04-2023 Chronic Other skin disorders (4 sources) Skin lesion; Translations: [Disorder of the skin and subcutaneous tissue, unspecified] Episodic Other skin disorders (1 source) Vesicular eczema; Translations: [Dyshidrosis [pompholyx]] Episodic Other skin disorders (1 source) Eruption; Translations: [Rash and other nonspecific skin eruption] Episodic Other upper respiratory disease (20 sources) Allergic rhinitis due to animal hair and dander; Translations: [Allergic rhinitis due to animal (cat) (dog) hair and dander] Onset: 12-04-2018 12-04-2018 Chronic Other upper respiratory infections (1 source) Chronic sinusitis; Translations: [Chronic sinusitis, unspecified] Chronic Residual codes; unclassified (4 sources) Insomnia; Translations: [Other insomnia] 11-14-2022 Chronic Residual codes; unclassified (1 source) Treatment not available; Translations: [Procedure and treatment not carried out for other reasons] 11-20-2022 Episodic Spondylosis; intervertebral disc disorders; other back problems (20 sources) Lumbar radiculopathy; Translations: [Radiculopathy, lumbar region] Onset: 08-08-2022 Episodic Substance-related disorders (20 sources) Tobacco user; Translations: [Nicotine dependence, unspecified, uncomplicated] Onset: 12-04-2018 12-04-2018 Chronic Unclassified (1 source) Medication Follow-up Onset: 01-02-2023 Past or Other Problems Problem Classification Problem Date Documented Da te Episodic/Chronic Abdominal pain (11 sources) Abdominal pain; Translations: [Unspecified abdominal pain] Onset: 10-19-2022 Episodic Noninfectious gastroenteritis (2 sources) Chronic diarrhea; Translations: [Noninfective gastroenteritis and colitis, unspecified] Onset: 10-19-2022 10-19-2022 Episodic Other connective tissue disease (20 sources) Plantar fasciitis; Translations: [Plantar fascial fibromatosis] Onset: 12-04-2018 12-04-2018 Episodic Other diseases of kidney and ureters (2 sources) Cyst of kidney, acquired; Translations: [Acquired cyst of kidney] Onset: 09-24-2022 Episodic Other gastrointestinal disorders (1 source) Full incontinence of feces; Translations: [Incontinence of feces with fecal urgency] Onset: 10-19-2022 Episodic Other gastrointestinal disorders (1 source) Fecal urgency; Translations: [Incontinence of feces with fecal urgency] Onset: 10-19-2022 Episodic Other gastrointestinal disorders (1 source) Gas pain; Translations: [Abdominal gas pain] Onset: 10-19-2022 Episodic Other injuries and conditions due to external causes (20 sources) Unspecified injury of lower back, initial encounter; Translations: [Other injury of other sites of trunk] Onset: 03-30-2019 03-30-2019 Episodic Other screening for suspected conditions (not mental disorders or infectious disease) (10 sources) Patient encounter status; Translations: [Encounter for screening for other suspected endocrine disorder] Onset: 05-03-2022 Episodic Other skin disorders (1 source) Rash and other nonspecific skin eruption; Translations: [Rash of hand] Onset: 05-30-2022 Episodic Results Test Name Value Interpretation Reference Range Facil ity Vital Signs Date Time Vital Sign Value Performing Clinician Jos morales 02-20-2023 12:44-0500 Body weight 123.56 kg Matthew Lindsey APRN.CNP Work Phone: [facility] 02-20-2023 12:44-0500 Diastolic blood pressure 84 mm[Hg] Matthew Lindsey APRN.CNP Work Phone: [facility] 02-20-2023 12:44-0500 Heart rate 103 /min Matthew Lisbeth MUD MILL TENDER.WEATHERSTRIP MACHINE OPERATOR Work Phone: [facility] 02-20-2023 12:44-0500 SaO2% (BldA) [Mass fraction] 98 % Matthew Lisbeth MUD MILL TENDER.WEATHERSTRIP MACHINE OPERATOR Work Phone: [facility] 02-20-2023 12:44-0500 Systolic blood pressure 116 mm[Hg] Matthew Lisbeth MUD MILL TENDER.WEATHERSTRIP MACHINE OPERATOR Work Phone: [facility] 02-14-2023 10:46-0500 Body weight 122.11 kg Simran Podlogar MUD MILL TENDER.WEATHERSTRIP MACHINE OPERATOR Work Phone: [facility] 02-14-2023 10:46-0500 Diastolic blood pressure 76 mm[Hg] Simran Podlogar MUD MILL TENDER.WEATHERSTRIP MACHINE OPERATOR Work Phone: [facility] 02-14-2023 10:46-0500 Heart rate 94 /min Simran Podlogar MUD MILL TENDER.WEATHERSTRIP MACHINE OPERATOR Work Phone: [facility] 02-14-2023 10:46-0500 Respiratory rate 18 /min Simran Podlogar MUD MILL TENDER.WEATHERSTRIP MACHINE OPERATOR Work Phone: [facility] 02-14-2023 10:46-0500 SaO2% (BldA) [Mass fraction] 98 % Simran Podlogar MUD MILL TENDER.WEATHERSTRIP MACHINE OPERATOR Work Phone: [facility] 02-14-2023 10:46-0500 Systolic blood pressure 120 mm[Hg] Simran Podlogar MUD MILL TENDER.WEATHERSTRIP MACHINE OPERATOR Work Phone: [facility] 01-04-2023 11:21-0400 Heart rate 79 /min Elizabeth Prebish MUD MILL TENDER.WEATHERSTRIP MACHINE OPERATOR Work Phone: [facility] 01-04-2023 11:21-0400 Respiratory rate 16 /min Elizabeth Prebish MUD MILL TENDER.WEATHERSTRIP MACHINE OPERATOR Work Phone: [facility] 01-04-2023 11:21-0400 SaO2% (BldA) [Mass fraction] 99 % Elizabeth Prebish MUD MILL TENDER.WEATHERSTRIP MACHINE OPERATOR Work Phone: [facility] 11-15-2022 13:02-0400 Heart rate 97 /min Elizabeth Prebish MUD MILL TENDER.WEATHERSTRIP MACHINE OPERATOR Work Phone: [facility] 11-15-2022 13:02-0400 Respiratory rate 16 /min Elizabeth Prebish MUD MILL TENDER.WEATHERSTRIP MACHINE OPERATOR Work Phone: [facility] 11-15-2022 13:02-0400 SaO2% (BldA) [Mass fraction] 98 % Elizabeth Prebish MUD MILL TENDER.WEATHERSTRIP MACHINE OPERATOR Work Phone: [facility] 10-19-2022 13:52-0400 Body weight 125.19 kg Matthew Lisbeth MUD MILL TENDER.WEATHERSTRIP MACHINE OPERATOR Work Phone: [facility] 10-19-2022 13:52-0400 Diastolic blood pressure 80 mm[Hg] Matthew Lisbeth MUD MILL TENDER.WEATHERSTRIP MACHINE OPERATOR Work Phone: [facility] 10-19-2022 13:52-0400 Heart rate 99 /min Matthew Lisbeth MUD MILL TENDER.WEATHERSTRIP MACHINE OPERATOR Work Phone: [facility] 10-19-2022 13:52-0400 Respiratory rate 16 /min Matthew Lisbeth MUD MILL TENDER.WEATHERSTRIP MACHINE OPERATOR Work Phone: [facility] 10-19-2022 13:52-0400 SaO2% (BldA) [Mass fraction] 98 % Matthew Lisbeth MUD MILL TENDER.WEATHERSTRIP MACHINE OPERATOR Work Phone: [facility] 10-19-2022 13:52-0400 Systolic blood pressure 122 mm[Hg] Matthew Lisbeth MUD MILL TENDER.WEATHERSTRIP MACHINE OPERATOR Work Phone: [facility] 08-08-2022 10:54-0400 Body weight 122.56 kg Simran Podlogar MUD MILL TENDER.WEATHERSTRIP MACHINE OPERATOR Work Phone: [facility] 08-08-2022 10:54-0400 Diastolic blood pressure 70 mm[Hg] Simran Podlogar MUD MILL TENDER.WEATHERSTRIP MACHINE OPERATOR Work Phone: [facility] 08-08-2022 10:54-0400 Heart rate 85 /min Simran Podlogar MUD MILL TENDER.WEATHERSTRIP MACHINE OPERATOR Work Phone: [facility] 08-08-2022 10:54-0400 Respiratory rate 18 /min Simran Podlogar MUD MILL TENDER.WEATHERSTRIP MACHINE OPERATOR Work Phone: [facility] 08-08-2022 10:54-0400 SaO2% (BldA) [Mass fraction] 98 % Simran Podlogar MUD MILL TENDER.WEATHERSTRIP MACHINE OPERATOR Work Phone: [facility] 08-08-2022 10:54-0400 Systolic blood pressure 114 mm[Hg] Simran Podlogar MUD MILL TENDER.WEATHERSTRIP MACHINE OPERATOR Work Phone: [facility] 05-30-2022 12:59-0400 Body weight 122.11 kg Matthew Lisbeth MUD MILL TENDER.WEATHERSTRIP MACHINE OPERATOR Work Phone: [facility] 05-30-2022 12:59-0400 Diastolic blood pressure 84 mm[Hg] Matthew Lisbeth MUD MILL TENDER.WEATHERSTRIP MACHINE OPERATOR Work Phone: [facility] 05-30-2022 12:59-0400 Heart rate 79 /min Matthew Lisbeth MUD MILL TENDER.WEATHERSTRIP MACHINE OPERATOR Work Phone: [facility] 05-30-2022 12:59-0400 Respiratory rate 16 /min Matthew Lisbeth MUD MILL TENDER.WEATHERSTRIP MACHINE OPERATOR Work Phone: [facility] 05-30-2022 12:59-0400 SaO2% (BldA) [Mass fraction] 99 % Matthew Lisbeth MUD MILL TENDER.WEATHERSTRIP MACHINE OPERATOR Work Phone: [facility] 05-30-2022 12:59-0400 Systolic blood pressure 122 mm[Hg] Matthew Lisbeth MUD MILL TENDER.WEATHERSTRIP MACHINE OPERATOR Work Phone: [facility] 05-03-2022 11:27-0500 Body weight 122.38 kg Matthew Lisbeth MUD MILL TENDER.WEATHERSTRIP MACHINE OPERATOR Work Phone: [facility] 05-03-2022 11:27-0500 Diastolic blood pressure 90 mm[Hg] Matthew Lisbeth MUD MILL TENDER.WEATHERSTRIP MACHINE OPERATOR Work Phone: [facility] 05-03-2022 11:27-0500 Heart rate 69 /min Matthew Lisbeth MUD MILL TENDER.WEATHERSTRIP MACHINE OPERATOR Work Phone: [facility] 05-03-2022 11:27-0500 Respiratory rate 16 /min Matthew Lisbeth MUD MILL TENDER.WEATHERSTRIP MACHINE OPERATOR Work Phone: [facility] 05-03-2022 11:27-0500 SaO2% (BldA) [Mass fraction] 98 % Matthew Lisbeth MUD MILL TENDER.WEATHERSTRIP MACHINE OPERATOR Work Phone: [facility] 05-03-2022 11:27-0500 Systolic blood pressure 126 mm[Hg] Matthew Lisbeth MUD MILL TENDER.WEATHERSTRIP MACHINE OPERATOR Work Phone: [facility] 11-09-2021 12:46-0400 Body height 170.2 cm Luiz Llanos PA-C Work Phone: [facility] 11-09-2021 12:46-0400 Body weight 118.12 kg Luiz Llanos PA-C Work Phone: [facility] 11-09-2021 12:46-0400 Diastolic blood pressure 69 mm[Hg] Luiz RAMIRESC Work Phone: [facility] 11-09-2021 12:46-0400 Heart rate 65 /min Luiz RAMIRESC Work Phone: [facility] 11-09-2021 12:46-0400 SaO2% (BldA) [Mass fraction] 100 % Luiz RAMIRESC Work Phone: [facility] 11-09-2021 12:46-0400 Systolic blood pressure 114 mm[Hg] Luiz RAMIRESC Work Phone: [facility] 08-03-2021 15:07-0400 Body weight 113.4 kg Matthew Lisbeth MUD MILL TENDER.WEATHERSTRIP MACHINE OPERATOR Work Phone: [facility] 08-03-2021 15:07-0400 Diastolic blood pressure 82 mm[Hg] Matthew Lisbeth MUD MILL TENDER.WEATHERSTRIP MACHINE OPERATOR Work Phone: [facility] 08-03-2021 15:07-0400 Heart rate 66 /min Matthew Lindsey MUD MILL TENDER.WEATHERSTRIP MACHINE OPERATOR Work Phone: [facility] 08-03-2021 15:07-0400 Respiratory rate 16 /min Matthew Lindsey MUD MILL TENDER.WEATHERSTRIP MACHINE OPERATOR Work Phone: [facility] 08-03-2021 15:07-0400 SaO2% (BldA) [Mass fraction] 100 % Matthew Lindsey MUD MILL TENDER.WEATHERSTRIP MACHINE OPERATOR Work Phone: [facility] 08-03-2021 15:07-0400 Systolic blood pressure 124 mm[Hg] Matthew Lindsey MUD MILL TENDER.WEATHERSTRIP MACHINE OPERATOR Work Phone: [facility] Encounters Encounter Date Encounter Type Care Provider Facility Start: 02-20-2023 End: 02-20-2023 ambulatory MATTHEW LINDSEY Facility:[facility] Start: 02-20-2023 End: 02-20-2023 Patient encounter procedure Matthew Lindsey MUD MILL TENDER.WEATHERSTRIP MACHINE OPERATOR Work Phone: [facility] Procedures Date Procedure Procedure Detail Performing Clinician Start: 09-24-2022 Ct abdomen & pelvis w/contrast material Matthew Lindsey MUD MILL TENDER.WEATHERSTRIP MACHINE OPERATOR Work Phone: Start: 09-06-2022 Mri spinal canal lum bar w/o contrast material Matthew Lindsey MUD MILL TENDER.WEATHERSTRIP MACHINE OPERATOR Work Phone: Plan of Treatment Date Care Activity Detail Author Start: 2036 Zoster Vaccines (1 of 2) Zoste r Vaccines (1 of 2) [facility] Start: 11-09-2022 Covid-19 Vaccine ( season) Covid-19 Vaccine ( season) [facility] Start: 11-09-2022 Influenza vaccination C [facility] Start: 05-03-2022 End: 07-03-2022 25-hydroxyvitamin D3 [Mass/volume] in Serum or Plasma VITAMIN D 25 HYDROXY Lab Routine Encounter for vitamin deficiency screening Expected: 05/03/2022, Expires: 07/03/2022 [facility] Work Phone: Immunizations Immunization Date Immunization Notes Care Provider Randall abraham 04-30-2018 influenza virus vaccine, unspecified formulation Camryn Garces APRN.WEATHERSTRIP MACHINE OPERATOR Work Phone: [facility] Payers Date Payer Category Payer Medicaid [id number] 2022 Medicaid [id number] 2016 Medicaid [employer] [id number] 2016-Present [phone] [address] [place] [address] Medicaid [id number] 2016 Medicaid [id number] Social History Date Type Detail Facility Start: 02-13-2016 End: 11-09-2021 Tobacco smoking status INIS Smokes tobacco daily [facility] History of tobacco use Cigarette Smoker C [facility] Start: 02-13-2016 End: 09-10-2022 Cigarettes smoked current (pack per day) - Reported 1 [facility] Start: 02-13-2016 End: 11-09-2021 Tobacco use and exposure Smokeless tobacco non-user [facility] Start: 02-14-2021 End: 02-20-2023 Alcohol intake Current drinker of alcohol (finding) [facility] Start: 12-12-2019 End: 05-03-2022 History SDOH Alcohol Frequency 1 [facility] Start: 02-04-2020 End: 05-03-2022 History SDOH Alcohol Std Drinks 98 [facility] Start: 06-16-2018 History SDOH Alcohol Comment occasional [facility] Start: 02-04-2020 End: 05-03-2022 History SDOH Social Connections Phone 5 [facility] Start: 12-12-2019 End: 05-03-2022 History SDOH Social Connections Membership 2 [facility] Start: 12-12-2019 End: 05-03-2022 History SDOH Social Connections Living 3 [facility] Start: 12-12-2019 History SDOH Physica l Activity DPW 7 [facility] Start: 02-04-2020 End: 05-03-2022 History SDOH Financial 4 [facility] Start: 12-12-2019 Education 11 [facility] Start: 1985 Sex Assigned At Female C [facility] Start: 07-24-2021 End: 01-24-2022 Exposure to SARS-CoV-2 (event) Not sure [facility] Start: 05-03-2022 End: 09-10-2022 Social connection and isolation panel [facility] Do you belong to any clubs or organizations such as sabianist groups, unions, fraternal or athletic groups, or school groups? No [facility] How often do you att end meetings of the clubs or organizations you belong to? Patient refused [facility] Are you now , , , , never or living with a partner? [facility] How often to you hav e a drink containing alcohol? Monthly or less [facility] How many standard dr inks containing alcohol do you have on a typical day? 1 or 2 [facility] How often do you hav e 6 or more drinks on 1 occasion? Never [facility] How hard is it for y ou to pay for the very basics like food, housing, medical care, and heating Not very hard [facility] Do you feel stress - tense, restless, nervous, or anxious, or unable to sleep at night because your mind is troubled all the time - these days [OSQ] Very much [facility] (I/We) worried kenya er (my/our) food would run out before (I/we) got money to buy more. Sometimes true [facility] The food that (I/we) bought just didn't last, and (I/we) didn't have money to get more. Never true [facility] In the past 12 month s, was there a time when you were not able to pay the mortgage or rent on time? Yes [facility] Start: 03-03-2020 Gender identity Identifies as female gender (finding) [facility] Start: 03-03-2020 Sexual orientation Heterosexual (mercedes ruiz) [facility] Start: 1985 Sex Assigned At Not on file [facility] Clinical Notes 06-21-2021 to 02-20-2023 Patient InstructionsMatthew Lindsey APRN.WEATHERSTRIP MACHINE OPERATOR - 02/20/2023 12:52 PM ESTPatient Simran Ochoa APRN.ANDREINA - 02/14/2023 10:50 AM Elizabeth Bradley APRN.ANDREINA - 01/04/2023 11:30 AM EDT Note Date & Type Note Facility 02-20-2023 Note HNO ID: [id number] Author: Matthew Lindsey APRN.ANDREINA Service: ? Author Type: Nurse Practitioner Type: Progress Notes Filed: 02/20/2023 2:25 PM Note Text: Chief Complaint Patient presents with: Follow Up: Anxiety and depression HPI Ni Kelley is a 37 year old female who presents here today for Above Complaints. Per visit with Simran Petty CNP on 02/14/2023: SUBJECTIVE: This is a 37 year old that is here today for Above Complaints. Depression worsening since . Feels like she can't physically do anything. She reports she has not really been taking care of herself and has not been doing things she should be doing. Example she gives is she did not pay her 's truck payment. She reports she has the money but just didn't pay it and she doesn't know why. She feels like she is a failure and can't do anything right. She is taking her Lexapro as prescribed but stopped her Wellbutrin two days ago because she doesn't feel like it was helping much. She reports she has chronic back pain and she feel this limits her. Not sleeping well. Has a hard time falling and staying asleep. Reports she has tried cannabis gummies a couple of times but didn't find it beneficial. She denies other illicit drug use. Not currently attending counseling but uses to at [facility]. She does admit she has had thoughts of self harm however she reports she could never physically do this. Her thoughts have included just driving into a another car but She reports she has good support from her and friends. Denies new stressors and HI ASSESSMENT/PLAN: 1. Anxiety and depression - ICD9: 300.00, 311, ICD10: F41.9, F32.A - contracted for safety - will increase her Lexapro to 30 mg - discussed restarting her Wellbutrin but she is not sure she wants to - counseling strongly encouraged and she agrees thsi would be good - handout for local counseling agencies provided as well as crisis center number - will have a close follow-up with her primary care team next week - ESCITALOPRAM 10 MG TABLET Simran Petty APRN.ANDREINA Today: Doesn't feel like she wants to be around anyone. Not taking care of herself. Took time off work-used her vacation time. Starting 02/14 had crying for 3-4 days straight. Has a lot going on with her kids. Always new stressors. Had previously thought about driving her car out in front of a semi-wouldn't do this because wouldn't want to hurt anyone else. Isn't necessarily feeling this way now. Does have the feeling that things would be better off without her but not suicidal that she would do anything about it. At appointment 1 week ago was told ok to stop her Wellbutrin because this helps with depression but makes anxiety worse. Does have the number to the crisis center. Past medical history, appointments, medications, allergies reviewed. Previous Medical History PAST MEDICAL HISTORY Diagnosis Date Allergic rhinitis due to animal hair and dander 12/04/2018 History of substance abuse (HCC) Plantar fasciitis 12/04/2018 Previous Surgical History PAST SURGICAL HISTORY Procedure Laterality Date COLONOSCOPY GEN ANES 01/13/2021 EGD 01/13/2021 PAST SURGICAL HISTORY OF 2011 genital vaginal hematoma Family History FAMILY HISTORY Problem Relation Age of Onset Diabetes Mother Hypertension Father Hyperlipidemia Father Anxiety disorder Father Depression Father Patient Allergies ALLERGIES Allergen Reactions Nicotine Rash Nicotine patch-severe rash with the adhesive Cats Intolerance Dogs Intolerance Grass Pollen Intolerance Molds Extract Intolerance Current Medications Current Outpatient Medications on File Prior to Visit Medication Sig escitalopram oxalate (LEXAPRO) 10 mg tablet Take 10 mg daily in addition to the 20 mg omeprazole (PRILOSEC) 20 mg capsule Take 1 capsule by mouth daily before breakfast. 1/2 hr before meal. escitalopram oxalate (LEXAPRO) 20 mg tablet Take 1 tablet by mouth once daily. gabapentin (NEURONTIN) 300 mg capsule Take 1 capsule by mouth two times a day for 30 days. buPROPion XL (WELLBUTRIN XL) 300 mg 24 hr tablet Take 1 tablet by mouth once daily. (Patient not taking: Reported on 02/14/2023) No current facility-administered medications on file prior to visit. Social History Social History Tobacco Use Smoking status: Every Day Packs/day: 1.00 Years: 17.00 Additional pack years: 0.00 Total pack years: 17.00 Types: Cigarettes Smokeless tobacco: Never Vaping Use Vaping Use: Never used Substance Use Topics Alcohol use: Yes Comment: occasional Drug use: Not Currently Types: Amphetamines, Crystal Meth, Heroin Comment: none since 06/2015 Review of Symptoms REVIEW OF SYSTEMS See HPI, otherwise negative EXAM: BP 116/84 (BP Site: Left Arm, BP Position: Sitting, BP Cuff Size: Regular Adult) Pulse 103 Wt 123.6 kg (272 lb 6.4 oz) LMP 01/30/2023 (Approximate) SpO2 98 (more content not included)... [facility] 02-20-2023 Instructions Matthew Lindsey APRN.ANDREINA - 02/20/2023 1:03 PM EST Try to get established with someone for counseling. Start taking the duloxetine (Cymbalta) on a daily basis, in addition to the 30mg of Lexapro. We'll follow up in a month and see how things are going-let me know if you have concerns before then. documented in this encounter [facility] 02-20-2023 History of Present illness Narrative Chief Complaint Patient presents with: Follow Up: Anxiety and depression HPI Ni Kelley is a 37 year old female who presents here today for Above Complaints. Per visit with Simran Petty CNP on 02/14/2023: SUBJECTIVE: This is a 37 year old that is here today for Above Complaints. Depression worsening since October/November. Feels like she can't physically do anything. She reports she has not really been taking care of herself and has not been doing things she should be doing. Example she gives is she did not pay her 's truck payment. She reports she has the money but just didn't pay it and she doesn't know why. She feels like she is a failure and can't do anything right. She is taking her Lexapro as prescribed but stopped her Wellbutrin two days ago because she doesn't feel like it was helping much. She reports she has chronic back pain and she feel this limits her. Not sleeping well. Has a hard time falling and staying asleep. Reports she has tried cannabis gummies a couple of times but didn't find it beneficial. She denies other illicit drug use. Not currently attending counseling but uses to at [facility]. She does admit she has had thoughts of self harm however she reports she could never physically do this. Her thoughts have included just driving into a another car but She reports she has good support from her and friends. Denies new stressors and HI ASSESSMENT/PLAN: 1. Anxiety and depression - ICD9: 300.00, 311, ICD10: F41.9, F32.A - contracted for safety - will increase her Lexapro to 30 mg - discussed restarting her Wellbutrin but she is not sure she wants to - counseling strongly encouraged and she agrees thsi would be good - handout for local counseling agencies provided as well as crisis center number - will have a close follow-up with her primary care team next week - ESCITALOPRAM 10 MG TABLET Simran Petty, OLY.WEATHERSTRIP MACHINE OPERATOR Today: Doesn't feel like she wants to be around anyone. Not taking care of herself. Took time off work-used her vacation time. Starting 02/14 had crying for 3-4 days straight. Has a lot going on with her kids. Always new stressors. Had previously thought about driving her car out in front of a semi-wouldn't do this because wouldn't want to hurt anyone else. Isn't necessarily feeling this way now. Does have the feeling that things would be better off without her but not suicidal that she would do anything about it. At appointment 1 week ago was told ok to stop her Wellbutrin because this helps with depression but makes anxiety worse. Does have the number to the crisis center. Past medical history, appointments, medications, allergies reviewed. Previous Medical History PAST MEDICAL HISTORY Diagnosis Date Allergic rhinitis due to animal hair and dander 12/04/2018 History of substance abuse (HCC) Plantar fasciitis 12/04/2018 Previous Surgical History PAST SURGICAL HISTORY Procedure Laterality Date COLONOSCOPY GEN ANES 01/13/2021 EGD 01/13/2021 PAST SURGICAL HISTORY OF 2010 genital vaginal hematoma Family History FAMILY HISTORY Problem Relation Age of Onset Diabetes Mother Hypertension Father Hyperlipidemia Father Anxiety disorder Father Depression Father Patient Allergies ALLERGIES Allergen Reactions Nicotine Rash Nicotine patch-severe rash with the adhesive Cats Intolerance Dogs Intolerance Grass Pollen Intolerance Molds Extract Intolerance Current Medications Current Outpatient Medications on File Prior to Visit Medication Sig escitalopram oxalate (LEXAPRO) 10 mg tablet Take 10 mg daily in addition to the 20 mg omeprazole (PRILOSEC) 20 mg capsule Take 1 capsule by mouth daily before breakfast. 1/2 hr before meal. escitalopram oxalate (LEXAPRO) 20 mg tablet Take 1 tablet by mouth once daily. gabapentin (NEURONTIN) 300 mg capsule Take 1 capsule by mouth two times a day for 30 days. buPROPion XL (WELLBUTRIN XL) 300 mg 24 hr tablet Take 1 tablet by mouth once daily. (Patient not taking: Reported on 02/14/2023) No current facility-administered medications on file prior to visit. Social History Social History Tobacco Use Smoking status: Every Day Packs/day: 1.00 Years: 17.00 Additional pack years: 0.00 Total pack years: 17.00 Types: Cigarettes Smokeless tobacco: Never Vaping Use Vaping Use: Never used Substance Use Topics Alcohol use: Yes Comment: occasional Drug use: Not Currently Types: Amphetamines, Crystal Meth, Heroin Comment: none since 06/2015 Review of Symptoms REVIEW OF SYSTEMS See HPI, otherwise negative EXAM: BP 116/84 (BP Site: Left Arm, BP Position: Sitting, BP Cuff Size: Regular Adult) Pulse 103 Wt 123.6 kg (272 lb 6.4 oz) LMP 01/30/2023 (Approximate) SpO2 98% BMI 42.66 kg/m General Appearance: Well appearing, alert, in no acute distress, well-hydrated, well nourished. and Morbidly obese. Lungs: Lungs clear to auscultation. No wheezing, rhonchi, rales.. Heart: RRR without murmur, gallop, or rubs. No ectopy. Psychiatric: cooperative, flat affect, denies SI/HI. Health Maintenance List Hepatitis B Vaccine(1 of 3 - 3-dose series) Never done Pneumococcal Vaccine(1 - PCV) Never done Hepatitis C Screening Never done HIV Screening Never done DTaP,Tdap,Td Vaccine(1 - Tdap) Never done Pap Testing Never done HPV Testing Never done Influenza Vaccine(1) due on 11/09/2022 Covid-19 Vaccine( season) due on 11/09/2022 HPV Vaccine Aged Out Data reviewed Previous records, office notes ASSESSMENT/PLAN: 1. Depression with anxiety - ICD9: 300.4, ICD10: F41.8 Continue current Lexapro 30mg daily. Add Cymbalta 20mg daily. Stay off the Wellbutrin for now. Follow up in 1 month, sooner if necessary. Denies SI/HI today, but states does have Crisis Center number. is supportive as well. Recommend scheduling with counselor. - DULOXETINE 20 MG CAPSULE,DELAYED RELEASE Matthew Lindsey APRN.WEATHERSTRIP MACHINE OPERATOR Greater than 50% of 33-minute visit spent face to face with patient in counseling and education. documented in this encounter [facility] 02-14-2023 Note HNO ID: [id number] Author: Simran Petty APRN.WEATHERSTRIP MACHINE OPERATOR Service: ? Author Type: Nurse Practitioner Type: Progress Notes Filed: 02/14/2023 11:52 AM Note Text: 02/14/2023 Patient presents with: Depression SUBJECTIVE: This is a 37 year old that is here today for Above Complaints. Depression worsening since October/November. Feels like she can't physically do anything. She reports she has not really been taking care of herself and has not been doing things she should be doing. Example she gives is she did not pay her 's truck payment. She reports she has the money but just didn't pay it and she doesn't know why. She feels like she is a failure and can't do anything right. She is taking her Lexapro as prescribed but stopped her Wellbutrin two days ago because she doesn't feel like it was helping much. She reports she has chronic back pain and she feel this limits her. Not sleeping well. Has a hard time falling and staying asleep. Reports she has tried cannabis gummies a couple of times but didn't find it beneficial. She denies other illicit drug use. Not currently attending counseling but uses to at [facility]. She does admit she has had thoughts of self harm however she reports she could never physically do this. Her thoughts have included just driving into a another car but She reports she has good support from her and friends. Denies new stressors and HI PHQ9: 21 TODD: 21 PAST MEDICAL HISTORY Diagnosis Date Allergic rhinitis due to animal hair and dander 12/04/2018 History of substance abuse (HCC) Plantar fasciitis 12/04/2018 ALLERGIES Nicotine, Cats, Dogs, Grass Pollen, and Molds Extract MEDICATIONS Current Outpatient Medications Medication Sig omeprazole (PRILOSEC) 20 mg capsule Take 1 capsule by mouth daily before breakfast. 1/2 hr before meal. escitalopram oxalate (LEXAPRO) 20 mg tablet Take 1 tablet by mouth once daily. buPROPion XL (WELLBUTRIN XL) 300 mg 24 hr tablet Take 1 tablet by mouth once daily. (Patient not taking: Reported on 02/14/2023) gabapentin (NEURONTIN) 300 mg capsule Take 1 capsule by mouth two times a day for 30 days. (Patient not taking: Reported on 02/14/2023) No current facility-administered medications for this visit. Medications and allergies reviewed by this provider. SOCIAL HISTORY Social History Tobacco Use Smoking status: Every Day Packs/day: 1.00 Years: 17.00 Additional pack years: 0.00 Total pack years: 17.00 Types: Cigarettes Smokeless tobacco: Never Vaping Use Vaping Use: Never used Substance Use Topics Alcohol use: Yes Comment: occasional Drug use: Not Currently Types: Amphetamines, Crystal Meth, Heroin Comment: none since 06/2015 REVIEW OF SYSTEMS All other reviewed and negative other than HPI. OBJECTIVE: BP 120/76 Pulse 94 Resp 18 Wt 122.1 kg (269 lb 3.2 oz) LMP 01/30/2023 (Approximate) SpO2 98% BMI 42.16 kg/m? . Vital signs reviewed by this provider. PSYCH: Posture and motor behavior: wringing hands Dress, grooming, personal hygiene: disheveled Facial expression: good eye contact and tearful at times Speech: normal speech Mood: sad Coherency and relevance of thought: normal thought processes Memory: normal memory Hepatitis B Vaccine(1 of 3 - 3-dose series) Never done Pneumococcal Vaccine(1 - PCV) Never done Hepatitis C Screening Never done HIV Screening Never done DTaP,Tdap,Td Vaccine(1 - Tdap) Never done Pap Testing Never done HPV Testing Never done Influenza Vaccine(1) due on 11/09/2022 Covid-19 Vaccine(3 - 2022-24 season) due on 11/09/2022 HPV Vaccine Aged Out ASSESSMENT/PLAN: 1. Anxiety and depression - ICD9: 300.00, 311, ICD10: F41.9, F32.A - contracted for safety - will increase her Lexapro to 30 mg - discussed restarting her Wellbutrin but she is not sure she wants to - counseling strongly encouraged and she agrees thsi would be good - handout for local counseling agencies provided as well as crisis center number - will have a close follow-up with her primary care team next week - ESCITALOPRAM 10 MG TABLET Simran Vivarlogoskar, MUD MILL TENDER.WEATHERSTRIP MACHINE OPERATOR Prescription instructions reviewed with patient as applicable. Patient advised if symptoms do not improve or if symptoms worsen sooner, to contact their primary care physician. Potential red flag symptoms discussed with the patient. Reviewed appropriate action plan to take if red flag symptoms occur. Patient agreeable to treatment plan. I spent a total of 25 minutes on the date of the service which included preparing to see the patient, [id number] patient care, completing clinical documentation, obtaining and/or reviewing separately obtained history, performing a medically appropriate examination, counseling and educating the patient/family/caregiver, and ordering medications, tests, or procedures. [facility] 02-14-2023 Instructions Simran Petty, OLY.ANDREINA - 02/14/2023 11:05 AM EST Provide services on a sliding fee scale for [facility] residents. [address] [address] *Counseling [facility] - Main Office [address] [place], [place] [id number] *Counseling, Psychiatry and Case Management [place] [address] [place] [address] *Counseling [address] [address] *Counseling [place] [address] [place], [place] [id number] *Counseling [place] [address] [place] [address] *Counseling [place] [address] [place], [place] [phone] *Counseling/mental health and substance use treatment [facility] [address] [place], [place] [address] [address] [place], [place] [address] [facility] [address], [address] [place] [address] *Addiction services, services for victims of domestic violence and sexual assault, housing services [facility] -safe, alcohol and drug free environment [facility] [phone] *free grief services, individual and group *If you ever experience a mental health crisis please contact [phone], 911 or go to the nearest ER. Please verify with insurance provider for coverage documented in this encounter [facility] 02-14-2023 History of Present illness Narrative 02/14/2023 Patient presents with: Depression SUBJECTIVE: This is a 37 year old that is here today for Above Complaints. Depression worsening since October/November. Feels like she can't physically do anything. She reports she has not really been taking care of herself and has not been doing things she should be doing. Example she gives is she did not pay her 's truck payment. She reports she has the money but just didn't pay it and she doesn't know why. She feels like she is a failure and can't do anything right. She is taking her Lexapro as prescribed but stopped her Wellbutrin two days ago because she doesn't feel like it was helping much. She reports she has chronic back pain and she feel this limits her. Not sleeping well. Has a hard time falling and staying asleep. Reports she has tried cannabis gummies a couple of times but didn't find it beneficial. She denies other illicit drug use. Not currently attending counseling but uses to at [facility]. She does admit she has had thoughts of self harm however she reports she could never physically do this. Her thoughts have included just driving into a another car but She reports she has good support from her and friends. Denies new stressors and HI PHQ9: 21 TODD: 21 PAST MEDICAL HISTORY Diagnosis Date Allergic rhinitis due to animal hair and dander 12/04/2018 History of substance abuse (HCC) Plantar fasciitis 12/04/2018 ALLERGIES Nicotine, Cats, Dogs, Grass Pollen, and Molds Extract MEDICATIONS Current Outpatient Medications Medication Sig omeprazole (PRILOSEC) 20 mg capsule Take 1 capsule by mouth daily before breakfast. 1/2 hr before meal. escitalopram oxalate (LEXAPRO) 20 mg tablet Take 1 tablet by mouth once daily. buPROPion XL (WELLBUTRIN XL) 300 mg 24 hr tablet Take 1 tablet by mouth once daily. (Patient not taking: Reported on 02/14/2023) gabapentin (NEURONTIN) 300 mg capsule Take 1 capsule by mouth two times a day for 30 days. (Patient not taking: Reported on 02/14/2023) No current facility-administered medications for this visit. Medications and allergies reviewed by this provider. SOCIAL HISTORY Social History Tobacco Use Smoking status: Every Day Packs/day: 1.00 Years: 17.00 Additional pack years: 0.00 Total pack years: 17.00 Types: Cigarettes Smokeless tobacco: Never Vaping Use Vaping Use: Never used Substance Use Topics Alcohol use: Yes Comment: occasional Drug use: Not Currently Types: Amphetamines, Crystal Meth, Heroin Comment: none since 06/2015 REVIEW OF SYSTEMS All other reviewed and negative other than HPI. OBJECTIVE: BP 120/76 Pulse 94 Resp 18 Wt 122.1 kg (269 lb 3.2 oz) LMP 01/30/2023 (Approximate) SpO2 98% BMI 42.16 kg/m . Vital signs reviewed by this provider. PSYCH: Posture and motor behavior: wringing hands Dress, grooming, personal hygiene: disheveled Facial expression: good eye contact and tearful at times Speech: normal speech Mood: sad Coherency and relevance of thought: normal thought processes Memory: normal memory Hepatitis B Vaccine(1 of 3 - 3-dose series) Never done Pneumococcal Vaccine(1 - PCV) Never done Hepatitis C Screening Never done HIV Screening Never done DTaP,Tdap,Td Vaccine(1 - Tdap) Never done Pap Testing Never done HPV Testing Never done Influenza Vaccine(1) due on 11/09/2022 Covid-19 Vaccine(3 - 2022-24 season) due on 11/09/2022 HPV Vaccine Aged Out ASSESSMENT/PLAN: 1. Anxiety and depression - ICD9: 300.00, 311, ICD10: F41.9, F32.A - contracted for safety - will increase her Lexapro to 30 mg - discussed restarting her Wellbutrin but she is not sure she wants to - counseling strongly encouraged and she agrees thsi would be good - handout for local counseling agencies provided as well as [facility] center number - will have a close follow-up with her primary care team next week - ESCITALOPRAM 10 MG TABLET Simran Petty APRN.ANDREINA Prescription instructions reviewed with patient as applicable. Patient advised if symptoms do not improve or if symptoms worsen sooner, to contact their primary care physician. Potential red flag symptoms discussed with the patient. Reviewed appropriate action plan to take if red flag symptoms occur. Patient agreeable to treatment plan. I spent a total of 25 minutes on the date of the service which included preparing to see the patient, [id number] patient care, completing clinical documentation, obtaining and/or reviewing separately obtained history, performing a medically appropriate examination, counseling and educating the patient/family/caregiver, and ordering medications, tests, or procedures. documented in this encounter [facility] 02-05-2023 Note HNO ID: [id number] Author: Florencia Holden APRN.ANDREINA Service: ? Author Type: Nurse Practitioner Type: Progress Notes Filed: 02/05/2023 5:00 PM Note Text: BMI Obesity Medicine Consult 02/05/23 Consultation requested by Matthew Lindsey APRN* for an opinion regarding Obesity. My final recommendations will be communicated back to the requesting physician by way of shared Medical record or letter to requesting physician via US mail. Patient HPI summary: Ni Kelley is a 37 year old female with obesity who presents to the [facility] bariat[facility] and [facility] [place] for an initial evaluation of her obesity and past medical history of tobacco use, Planter fasciitis, depression with anxiety, allergic rhinitis, and is interested in behavioral , pharmacological, and non-surgical weight loss approaches. Primary reason for wanting obesity treatment : back pain, improve health Overall goal: 200 lbs ; lose approximately 76 lbs Weight History: She reports a family history of obesity and adult onset weight gain. She states her weight gain is related to the following factors, including back injury, stress, smoking cessation, nutrition and inactivity. Weight Graph: (please see graph scanned in chart) Medications: Wellbutrin 300 mg XL tablet daily-for anxiety and depression Diet: Food Preparation and grocery shopping: patient and son Quality of diet: 24hr recall suggests unhealthy diet. Characterization of diet:Unstructured, unhealthy snacking, evening snacking, increased consumption of sugar sweetened beverages, and skip meals. 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 self-directed. Exercise: Regular exercise: No Strength/resistance exercise:No Barriers to regular exercise? Back pain, time constraints, discouragement, motivation Work-related activity:Active. ?Sleep: Duration: 4 hours. LIANET NO ; CPAP NO Quality:poor, Numerous awakenings:Sleep-wake cycle disruption:No STOP BANG -virtual visit will address at next in office visit. ??Stress: Marked, Cause:work, financial, personal Obesity Related Comorbidities: Prior Weight Loss Surgery:No ACTIVE PROBLEM LIST Obesity, Class I, Bmi 30-34.9 Depression With Anxiety Tobacco Use Disorder Plantar Fasciitis Allergic Rhinitis Due to Animal Hair and Dander Injury of Back PAST SURGICAL HISTORY Procedure Laterality Date COLONOSCOPY GEN ANES 01/13/2021 EGD 01/13/2021 PAST SURGICAL HISTORY OF 2010 genital vaginal hematoma Obesity ROS/ FHx GEN: Fatigue:yes CV: h/o palpitations/cardiac arrhythmia, CP:No PULM: Asthma:No GI: GERD:omeprazole; Gallstones: No; Fatty liver disease:No; H/o hernia:No Pancreatitis: no MSK: Joint Pain:back pain and neck shoulders and hips and knee's and ankles and sciatica : Nephrolithiasis:yes; Stress incontinence:yes Symptoms of PCOS(women):y Steroids for Chronic Problems NEURO: Migraines/HAND:no; H/o seizures: No Glaucoma:No; Cataracts No Symptoms of pseudotumor cerebri:No Stroke: no; Tia; NO GI: Yes and : Yes Psychiatric history: depression and anxiety Substance use disorder:opioid and amphetamine sober 7.5 years Medical marijuana: denies Tobacco: cigarettes - prior 2 packs now 1/2 pack day; 25 years Alcohol: on occasion Family History Problem Relation Age of Onset Diabetes Mother Hypertension Father Hyperlipidemia Father Anxiety disorder Father Depression Father PREV: PAP UTD, Mammogram Not UTD and Colonoscopy UTD Social History Social History Tobacco Use Smoking status: Every Day Packs/day: 1.00 Years: 17.00 Additional pack years: 0.00 Total pack years: 17.00 Types: Cigarettes Smokeless tobacco: Never Vaping Use Vaping Use: Never used Substance Use Topics Alcohol use: Yes Comment: occasional Drug use: Not Currently Types: Amphetamines, Crystal Meth, Heroin Comment: none since 06/2015 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 Results: reviewed with the patient No visits with results within 3 Month(s) from this visit. Latest known visit with results is: Office Visit on 08/25/2022 Carmi (more content not included)... [facility] 01-17-2023 Note HNO ID: [id number] Author: Matthew Lindsey APRN.CNP Service: ? Author Type: Nurse Practitioner Type: Progress Notes Filed: 01/17/2023 7:29 AM Note Text: VIRTUAL VISIT PROGRESS NOTE This is a virtual visit using [employer] Video Visit. It required patient-provider interaction for the medical decision making as documented below. I have communicated my name and active licensure. The patient's identity and physical location were verified at the time of this visit. Either the patient or their legal hardware supplies sales representative has been informed of the risks and benefits of -- and alternatives to -- treatment through a remote evaluation and consents to proceed with the evaluation remotely. Ni Kelley is a 37 year old female seen for pain, medication concerns. Today: Her dog got into her bedroom which she typically keeps the dog out of and the dog got into her medications. Was seen at the vent and the dogs didn't ingest them. But all are ruined, chewed up, covered in slobber. Back pain-couldn't walk for about 3 days due to her back pain. Feels much better today. Did some heavy lifting this weekend of her [id number] when he collapsed to the floor. Requesting pain management referral for her chronic back pain. Was told that there is nothing she can do for her pain and that losing weight is the only way to help the pain she's having. HISTORY REVIEWED (electronic chart updated): PAST MEDICAL HISTORY Diagnosis Date Allergic rhinitis due to animal hair and dander 12/04/2018 History of substance abuse (HCC) Plantar fasciitis 12/04/2018 PAST SURGICAL HISTORY Procedure Laterality Date COLONOSCOPY GEN ANES 01/13/2021 EGD 01/13/2021 PAST SURGICAL HISTORY OF 2011 genital vaginal hematoma FAMILY HISTORY Problem Relation Age of Onset Diabetes Mother Hypertension Father Hyperlipidemia Father Anxiety disorder Father Depression Father Social History Tobacco Use Smoking status: Every Day Packs/day: 1.00 Years: 17.00 Additional pack years: 0.00 Total pack years: 17.00 Types: Cigarettes Smokeless tobacco: Never Vaping Use Vaping Use: Never used Substance Use Topics Alcohol use: Yes Comment: occasional Drug use: Not Currently Types: Amphetamines, Crystal Meth, Heroin Comment: none since 06/2015 Current Outpatient Medications Medication Sig buPROPion XL (WELLBUTRIN XL) 300 mg 24 hr tablet Take 1 tablet by mouth once daily. omeprazole (PRILOSEC) 20 mg capsule Take 1 capsule by mouth daily before breakfast. 1/2 hr before meal. escitalopram oxalate (LEXAPRO) 20 mg tablet Take 1 tablet by mouth once daily. gabapentin (NEURONTIN) 300 mg capsule Take 1 capsule by mouth two times a day for 30 days. No current facility-administered medications for this visit. ALLERGIES Allergen Reactions Nicotine Rash Nicotine patch-severe rash with the adhesive Cats Intolerance Dogs Intolerance Grass Pollen Intolerance Molds Extract Intolerance REVIEW OF SYSTEMS: All other ROS: negative As noted in HPI PHYSICAL EXAMINATION: VIDEO EXAM: (if completed, performed via video enabled technology) Pleasant, cooperative ASSESSMENT: (M48.061) Spinal stenosis of lumbar region, unspecified whether neurogenic claudication present (primary encounter diagnosis) (F41.8) Depression with anxiety (R10.9) Abdominal pain, unspecified abdominal location (M54.16) Lumbar back pain with radiculopathy affecting right lower extremity (M54.16) Lumbar nerve root impingement (M48.061) Foraminal stenosis of lumbar region PLAN: Medications resent to pharmacy. New pain management referral sent. Matthew Lindsey APRN.WEATHERSTRIP MACHINE OPERATOR [facility] 01-07-2023 Miscellaneous Notes Summary: 1st attempt PCP ref into program 1st call goes right into , [facility] documented in this encounter [facility] 01-04-2023 Note HNO ID: [id number] Author: Elizabeth Snowden APRN.ANDREINA Service: ? Author Type: Nurse Practitioner Type: Progress Notes Filed: 01/07/2023 3:51 PM Note Text: [facility] Today's Date: 11/14/2022 Last Visit: N/A Name: Ni Kelley : 1985 Purpose: New Patient Consultation Ni Kelley is a 37 year old FEMALE, Patient presents with: Follow Up: SRIKANTH Notable Events During Course of Treatment: 11/14/2022 - Initial HPI: Referred by Matthew Lindsey PA-C, with a PMHx of tobacco use, back pain, Flat feet, plantar fascitis, depression/anxiety who presents for back pain Duration: 4-5 years Sudden onset? yes, Trauma? Yes moving a [employer] Prior Treatments: Medications (See below), Injections (See below), Modalities (eg. 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 Pain Description: Timing: intermittent pain comes and goes but will last for days to weeks Character: aching, throbbing, shooting changes depending on exacerbation Primary Location: low back worse on the right side Radiation: down the right leg into the right hip and into buttocks, and down the side of the leg into the knee cap to the front of the smith to the right great toe Exacerbating factors: sitting, standing, forward flexion, lifting, getting up from sitting, and walking any activity too long Relieving factors: repositioning Interferes with: physical activity, work, sexual relations, walking, sleeping, sitting, bathing, driving, cooking, household cleaning, reaching for shelves, lifting, and social activities The patient reports numbness in her right leg. Patient reporting she received no relief from having the interlaminar epidural steroid injection. Patient states she continues to have low back pain with radiation down her right leg into her right hip and into her buttocks down the side of her leg behind her kneecap and into the front of her right smith and into her right great throat toe. Patient states the pain in her leg is just as bad if not worse than the pain in her back. Patient states she has not started physical therapy at this time, states it she will start aqua therapy in January. Pain Procedures: DATE PROCEDURE IMPROVEMENT 12/05/2022 ILESI No relief INTAKE PAIN ASSESSMENT 01/01/2023 01/01/2023 Are you having pain associated with your visit today? Yes, Provider notified Yes, Provider notified Pain Scales - - Pain Level 5 5 Pain Location Back Back Description Aching;Burning;Cramping;Itching;N umbness;Phantom;Radiating;Shootin g;Sore;Sp asm;Stabbing;Stiffness;Throbbing; Tightness Aching;Burning;Cramping;Itching;N umbness;Phantom;Radiating;Shootin g;Sore;Sp asm;Stabbing;Stiffness;Throbbing; Tightness Duration Amount of Time 24 24 Duration Units Months Months Frequency Continuous Continuous Intervention/Comfort measure Medication;Relaxation;Cold;Heat;M assage;Music;Positioning Medication;Relaxation;Cold;Heat;M assage;Music;Positioning Comments - - Pain Assessment - - Medications: CURRENT Pain Medications: Membrane Stabilizers: Lyrica (Pregabalin) 300 mg bid NSAIDS: Motrin (Ibuprofen)800 mg most days one time per day Opioids: Vicodin or [place] (Hydrocodone) as needed (bedtime) Muscle Relaxants: none Topicals: none Other Prescription or OTC Pain Medications: none Anti-depressants: Lexapro and Wellbutrin Pain Medications Taken TO DATE (for the chief complaint(s)): Membrane Stabilizers: Gabapentin negative side effects. NSAIDS: Opioids: Muscle Relaxants: Topicals: Other Prescription,OTC Pain Medications, and or Bio Freeze: Anti-depressants: Non-Pain Meds of Note: none Allergies: ALLERGIES Allergen Reactions Nicotine Rash Nicotine patch-severe rash with the adhesive Cats Intolerance Dogs Intolerance Grass Pollen Intolerance Molds Extract Intolerance Compliance: PDMP website checked and validated. All prescriptions have been APPROPRIATELY filled. No suspicious activity was identified. 11/14/2022 by Elizabeth Snowden APRN.WEATHERSTRIP MACHINE OPERATOR Last Drug screen: Not Applicable Pill Count: No question data found. Risk Assessment: Opioid Risk Tool: Opioid Risk Tool: Greenlight Questionnaire GREENLIGHT Completed Date 11/15/2022 Opioid Risk Tool Opiod Risk Tool Date Completed 11/15/2022 Comments 20 (Clean from addiction x 7 years) TODD-7 Anxiety Score 4 Completed Date 11/15/2022 PHQ9P Score 12 Completed Date 11/15/2022 (0-3, low risk or no risk; 4-7, moderate risk, 8+, high risk) TODD-7: TODD - 7 SCORES 11/14/2022 11/15/2022 01/01/2023 TODD-7 Score 7 4 11 (0-4) minimal anxiety, (5-9) mild anxiety, (10-14) moderate anxiety, (15-21) severe anxiety PHQ-9: PHQ-9 11/14/2022 11/15/2022 01/01/2023 Score 12 12 11 (0-4) minimal depression, (5-9) mild depression, (10-14) moderate depression, (15-19) moderately severe depression, (20-27) severe depression Diagnostic Stud (more content not included)... [facility] 01-04-2023 Note HNO ID: [id number] Author: Patricia Rouse LPN Service: ? Author Type: LICENSED NURSE Type: Progress Notes Filed: 01/07/2023 3:51 PM Note Text: Review of Systems Constitutional: Negative for activity change, chills, fever and unexpected weight change. Gastrointestinal: Negative for bowel retention or incontinence Genitourinary: Negative for difficulty urinating. Negative for bladder retention or incontinence Musculoskeletal: Positive for back pain, gait problem and neck pain. Negative for arthralgias, joint swelling, myalgias and neck stiffness. Neurological: Positive for weakness, numbness and headaches. Psychiatric/Behavioral: Positive for dysphoric mood and sleep disturbance. Negative for suicidal ideas. The patient is nervous/anxious. [facility] 01-04-2023 Miscellaneous Notes The referral to [facility] for Dx: Spinal stenosis of lumbar region, unspecified whether neurogenic claudication present [M48.061 (ICD-10-CM)]; Lumbar radiculopathy [M54.16 (ICD-10-CM)]; Lumbar back pain with radiculopathy affecting right lower extremity [M54.16 (ICD-10-CM)] has been submitted via the [facility] Internal Referral Request form on the [facility] Appointment Portal. Confirmation # [id number] Carmel Jasso documented in this encounter [facility] 01-04-2023 History of Present illness Narrative [facility] Today's Date: 11/14/2022 Last Visit: N/A Name: Ni Kelley : 1985 Purpose: New Patient Consultation Ni Kelley is a 37 year old FEMALE, Patient presents with: Follow Up: SRIKANTH Notable Events During Course of Treatment: 11/14/2022 - Initial HPI: Referred by Matthew Lindsey PA-C, with a PMHx of tobacco use, back pain, Flat feet, plantar fascitis, depression/anxiety who presents for back pain Duration: 4-5 years Sudden onset? yes, Trauma? Yes moving a [place] cabinet Prior Treatments: Medications (See below), Injections (See below), Modalities (eg. 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 Pain Description: Timing: intermittent pain comes and goes but will last for days to weeks Character: aching, throbbing, shooting changes depending on exacerbation Primary Location: low back worse on the right side Radiation: down the right leg into the right hip and into buttocks, and down the side of the leg into the knee cap to the front of the smith to the right great toe Exacerbating factors: sitting, standing, forward flexion, lifting, getting up from sitting, and walking any activity too long Relieving factors: repositioning Interferes with: physical activity, work, sexual relations, walking, sleeping, sitting, bathing, driving, cooking, household cleaning, reaching for shelves, lifting, and social activities The patient reports numbness in her right leg. Patient reporting she received no relief from having the interlaminar epidural steroid injection. Patient states she continues to have low back pain with radiation down her right leg into her right hip and into her buttocks down the side of her leg behind her kneecap and into the front of her right smith and into her right great throat toe. Patient states the pain in her leg is just as bad if not worse than the pain in her back. Patient states she has not started physical therapy at this time, states it she will start aqua therapy in January. Pain Procedures: DATE PROCEDURE IMPROVEMENT 12/05/2022 ILESI No relief INTAKE PAIN ASSESSMENT 01/01/2023 01/01/2023 Are you having pain associated with your visit today? Yes, Provider notified Yes, Provider notified Pain Scales - - Pain Level 5 5 Pain Location Back Back Description Aching;Burning;Cramping;Itching;N umbness;Phantom;Radiating;Shootin g;Sore;Spasm;Stabbing;Stiffness;T hrobbing;Tightness Aching;Burning;Cramping;Itching;N umbness;Phantom;Radiating;Shootin g;Sore;Spasm;Stabbing;Stiffness;T hrobbing;Tightness Duration Amount of Time 24 24 Duration Units Months Months Frequency Continuous Continuous Intervention/Comfort measure Medication;Relaxation;Cold;Heat;M assage;Music;Positioning Medication;Relaxation;Cold;Heat;M assage;Music;Positioning Comments - - Pain Assessment - - Medications: CURRENT Pain Medications: Membrane Stabilizers: Lyrica (Pregabalin) 300 mg bid NSAIDS: Motrin (Ibuprofen)800 mg most days one time per day Opioids: Vicodin or [place] (Hydrocodone) as needed (bedtime) Muscle Relaxants: none Topicals: none Other Prescription or OTC Pain Medications: none Anti-depressants: Lexapro and Wellbutrin Pain Medications Taken TO DATE (for the chief complaint(s)): Membrane Stabilizers: Gabapentin negative side effects. NSAIDS: Opioids: Muscle Relaxants: Topicals: Other Prescription,OTC Pain Medications, and or Bio Freeze: Anti-depressants: Non-Pain Meds of Note: none Allergies: ALLERGIES Allergen Reactions Nicotine Rash Nicotine patch-severe rash with the adhesive Cats Intolerance Dogs Intolerance Grass Pollen Intolerance Molds Extract Intolerance Compliance: PDMP website checked and validated. All prescriptions have been APPROPRIATELY filled. No suspicious activity was identified. 11/14/2022 by Elizabeth Snowden APRN.WEATHERSTRIP MACHINE OPERATOR Last Drug screen: Not Applicable Pill Count: No question data found. Risk Assessment: Opioid Risk Tool: Opioid Risk Tool: Greenlight Questionnaire GREENLIGHT Completed Date 11/15/2022 Opioid Risk Tool Opiod Risk Tool Date Completed 11/15/2022 Comments 20 (Clean from addiction x 7 years) TODD-7 Anxiety Score 4 Completed Date 11/15/2022 PHQ9P Score 12 Completed Date 11/15/2022 (0-3, low risk or no risk; 4-7, moderate risk, 8+, high risk) TODD-7: TODD - 7 SCORES 11/14/2022 11/15/2022 01/01/2023 TODD-7 Score 7 4 11 (0-4) minimal anxiety, (5-9) mild anxiety, (10-14) moderate anxiety, (15-21) severe anxiety PHQ-9: PHQ-9 11/14/2022 11/15/2022 01/01/2023 Score 12 12 11 (0-4) minimal depression, (5-9) mild depression, (10-14) moderate depression, (15-19) moderately severe depression, (20-27) severe depression Diagnostic Studies: Relevant Imaging: Reviewed Personally on today's date, noted above MRI Spine Report MRI LUMBAR SPINE WO IVCON Exam End: 09/06/2022 12:06 PM (Final result) Narrative: * * *Final Report* * * DATE OF EXAM: Sep 06 2022 12:06PM ALIZE 0303 - MRI LUMBAR SPINE WO IVCON / PROCEDURE REASON: multiple diagnoses * * * * Physician Interpretation * * * * EXAMINATION: MRI LUMBAR SPINE WO IVCON CLINICAL HISTORY: Spinal stenosis of lumbar region, unspecified whether neurogenic claudication present Lumbar back pain with radiculopathy affecting right lower extremity Foraminal stenosis of lumbar region Acute right-sided low back pain with right-sided sciatica TECHNIQUE: Routine lumbosacral spine MR protocol without gadolinium. MQ: [id number] COMPARISON: MRI lumbar spine from 07/29/2019 RESULT: Counting reference: Lumbosacral junction. For the purposes of this report, L4-5 is considered the level of the iliac crest and assume there are 5 lumbar-type vertebrae. Anatomic variant: None. Localizer images: There is a new large right parapelvic cyst measuring approximately 5.5 cm in diameter (series 1 image 20 and series 4 image 12). Alignment: Alignment is anatomic. Stable mild loss of disc height at L4-L5 reflecting degeneration. Bone marrow signal/fracture: No evidence of pathologic marrow infiltration. No evidence of prior fracture. Conus: The conus is within normal limits of signal intensity and morphology terminating at L2. Nerve roots are normal in appearance. There is no abnormal enhancement. Paraspinal soft tissues: Paraspinal soft tissues are within normal limits. Lower thoracic spine: Visualized lower thoracic canal and foramina are patent. L1-L2: Canal and foramina are patent. L2-L3: Canal and foramina are patent L3-L4: Canal and foramina are patent L4-L5: Again noted is mild canal stenosis due to small central disc protrusion. Stable bilateral moderate L4-L5 neural foraminal stenosis. L5-S1: Canal and foramina are patent Sacrum and iliac wings: The visualized sacrum and iliac wings are within normal limits. Impression: IMPRESSION: Interval development of a 5.5 cm right parapelvic cyst. Otherwise stable MRI lumbar spine showing mild degenerative disc disease at L4-L5 with bilateral moderate neural foraminal stenoses. Anatomic Lumbar Variant: None. L4-5 is considered the level of the iliac crest and assume there are 5 lumbar-type vertebrae. Back Roll Lathe Operator: PSCB Transcribe Date/Time: Sep 06 2022 1:42P Dictated by : DANA SANTORO MD This examination was interpreted and the report reviewed and electronically signed by: DANA SANTORO MD on Sep 06 2022 1:44PM EST Electrodiagnostic Study (EMG): None Current Medications, Past Medical History, Past Surgical History, Family History, Social History and Review of Systems: On today's date, noted above, I have confirmed and edited as necessary, the PFSH and ROS obtained by others. Physical Exam: 01/04/23 1121 Pulse: 79 Resp: 16 SpO2: 99% Physical Exam Vitals reviewed. Constitutional: General: She is not in acute distress. Appearance: She is obese. She is not ill-appearing. HENT: Head: Normocephalic and atraumatic. Eyes: Conjunctiva/sclera: Conjunctivae normal. Cardiovascular: Pulses: Normal pulses. Pulmonary: Effort: Pulmonary effort is normal. No respiratory distress. Musculoskeletal: Thoracic back: No tenderness or bony tenderness. No scoliosis. Lumbar back: No tenderness. Normal range of motion. Negative right straight leg raise test and negative left straight leg raise test. No scoliosis. Comments: Hip Flexion: Right- 4/5; Left- 5/5 Knee Extension: Right- 4/5; Left- 5/5 Dorsiflexion: Right- 4/5; Left- 5/5 Plantarflexion: Right- 4/5; Left- 5/5 Special Tests- Facet Loading: Right-Positive; Left Positive SI Compression:Negative AMBER:Right-Positive; Left Positive Skin: General: Skin is warm and dry. Neurological: Mental Status: She is alert and oriented to person, place, and time. Motor: Weakness (right leg when compared to the left) present. Gait: Gait abnormal (antalgic). Tandem walk normal. Deep Tendon Reflexes: Reflexes are normal and symmetric. Reflex Scores: Patellar reflexes are 2+ on the right side and 2+ on the left side. Psychiatric: Mood and Affect: Mood and affect normal. Behavior: Behavior normal. Behavior is cooperative. Diagnoses: (M48.061) Spinal stenosis of lumbar region, unspecified whether neurogenic claudication present (primary encounter diagnosis) (M54.16) Lumbar radiculopathy (M54.16) Lumbar back pain with radiculopathy affecting right lower extremity Impression: 37 year old female presents with complaint(s) of low back pain with radicular symptoms as described above. Patient stating that the pain in her leg is interfering with her life more than the pain in her low back. At this point our options are limited as her radicular symptoms are her biggest complaint and she received no relief from the interlaminar epidural steroid injection. Due to the patient's habitus, it may be difficult to perform a caudal or transforaminal epidural steroid injection. Had a lengthy discussion with the patient regarding her pain, MRI results, her lack of conditioning. Patient is scheduled to start physical therapy in January to help her with strength. Patient has agreed to go to the obesity clinic to help her to reduce her weight as patient has struggled with her weight as of late and she feels it is just going up significantly recently. Plan: Ni Kelley would benefit from the following to reach personal goals for decreasing pain, improving function and work participation, and/or improving quality of life: Medication(s): continue current medication regime. Pt has been prescribed gabapentin 300 mg tid by here PCP will evaluate next appt for efficacy Additional Studies: none Referrals: The obesity clinic [facility] ([facility]) starting in january Depending on response to the above plan, consider: MBB -Follow-up: 2 months to evaluate improvement from PT. Attribution: In addition to reviewing the information noted above, some elements copied from my most recent clinical note(s), including the physical exam (completed in entirety today), and the impression and plan sections, have been updated where appropriate. All reflect current medical decision making from today's date. Elizabeth Snowden CNP. Pain Management [facility] Review of Systems Constitutional: Negative for activity change, chills, fever and unexpected weight change. Gastrointestinal: Negative for bowel retention or incontinence Genitourinary: Negative for difficulty urinating. Negative for bladder retention or incontinence Musculoskeletal: Positive for back pain, gait problem and neck pain. Negative for arthralgias, joint swelling, myalgias and neck stiffness. Neurological: Positive for weakness, numbness and headaches. Psychiatric/Behavioral: Positive for dysphoric mood and sleep disturbance. Negative for suicidal ideas. The patient is nervous/anxious. documented in this encounter [facility] 01-02-2023 Note HNO ID: [id number] Author: Matthew Lindsey APRN.WEATHERSTRIP MACHINE OPERATOR Service: ? Author Type: Nurse Practitioner Type: Progress Notes Filed: 01/02/2023 8:05 AM Note Text: VIRTUAL VISIT PROGRESS NOTE This is a virtual visit using [employer] Video Visit. It required patient-provider interaction for the medical decision making as documented below. I have communicated my name and active licensure. The patient's identity and physical location were verified at the time of this visit. Either the patient or their legal hardware supplies sales representative has been informed of the risks and benefits of -- and alternatives to -- treatment through a remote evaluation and consents to proceed with the evaluation remotely. Ni Kelley is a 37 year old female seen for medication review. Today: Started taking her gabapentin again instead of the Lyrica, it didn't seem to help for her. This works well for her chronic back pain. Would like to go back on this-feels like being off of it for a little while reset things and she is tolerating the medication better-no fogginess or sleepiness. Has cut her smoking in half. Has had better mood. But feels this isn't quite enough. Has completely cut out her caffeine. [place] very jittery, started taking two of her Wellbutrin 150mg and no more feeling jittery, doesn't necessarily having cigarette cravings anymore. Wondering if she would be ok to permanently increase her Wellbutrin to 300mg daily, does best with extended release. HISTORY REVIEWED (electronic chart updated): PAST MEDICAL HISTORY Diagnosis Date Allergic rhinitis due to animal hair and dander 12/04/2018 History of substance abuse (HCC) Plantar fasciitis 12/04/2018 PAST SURGICAL HISTORY Procedure Laterality Date COLONOSCOPY GEN ANES 01/13/2021 EGD 01/13/2021 PAST SURGICAL HISTORY OF 2011 genital vaginal hematoma FAMILY HISTORY Problem Relation Age of Onset Diabetes Mother Hypertension Father Hyperlipidemia Father Anxiety disorder Father Depression Father Social History Tobacco Use Smoking status: Every Day Packs/day: 1.00 Years: 17.00 Additional pack years: 0.00 Total pack years: 17.00 Types: Cigarettes Smokeless tobacco: Never Vaping Use Vaping Use: Never used Substance Use Topics Alcohol use: Yes Comment: occasional Drug use: Not Currently Types: Amphetamines, Crystal Meth, Heroin Comment: none since 06/2015 Current Outpatient Medications Medication Sig omeprazole (PRILOSEC) 20 mg capsule Take 1 capsule by mouth daily before breakfast. 1/2 hr before meal. escitalopram oxalate (LEXAPRO) 20 mg tablet Take 1 tablet by mouth once daily. pregabalin (LYRICA) 300 mg capsule Take 1 capsule by mouth two times a day for 30 days. buPROPion XL (WELLBUTRIN XL) 150 mg 24 hr tablet Take 1 tablet by mouth once daily. No current facility-administered medications for this visit. ALLERGIES Allergen Reactions Nicotine Rash Nicotine patch-severe rash with the adhesive Cats Intolerance Dogs Intolerance Grass Pollen Intolerance Molds Extract Intolerance REVIEW OF SYSTEMS: All other ROS: negative As noted in HPI PHYSICAL EXAMINATION: VIDEO EXAM: (if completed, performed via video enabled technology) Pleasant, cooperative. ASSESSMENT: (F41.8) Depression with anxiety (primary encounter diagnosis) (M48.061) Spinal stenosis of lumbar region, unspecified whether neurogenic claudication present (M54.16) Lumbar back pain with radiculopathy affecting right lower extremity (M54.16) Lumbar nerve root impingement (M48.061) Foraminal stenosis of lumbar region PLAN: Restart gabapentin 300mg bid. Will let the office know if this is too low of a dose or feels like she needs to add a 3rd dose in the middle of the day. Increase Wellbutrin to 300mg daily. Matthew Linsdey APRN.[facility] 12-10-2022 Miscellaneous Notes The following approved medication requests have been transmitted electronically. Requested Prescriptions Signed Prescriptions Disp Refills omeprazole (PRILOSEC) 20 mg capsule 30 capsule 5 Sig: Take 1 capsule by mouth daily before breakfast. 1/2 hr before meal. Authorizing Provider: MATTHEW LINDSEY escitalopram oxalate (LEXAPRO) 20 mg tablet 30 tablet 5 Sig: Take 1 tablet by mouth once daily. Authorizing Provider: MATTHEW LINDSEY pregabalin (LYRICA) 300 mg capsule 60 capsule 1 Sig: Take 1 capsule by mouth two times a day for 30 days. Authorizing Provider: MATTHEW LINDSEY Refused Prescriptions Disp Refills HYDROcodone-acetaminophen (NORCO) 5-325 mg per tablet 14 tablet 0 Sig: Take 1 tablet by mouth two times a day as needed for pain for up to 7 days. Refused By: MATTHEW LINDSEY Reason for Refusal: A Refill not appropriate Matthew Lindsey APRN.CNP PDMP website checked and validated. All prescriptions have been APPROPRIATELY filled. No suspicious activity was identified. 12/10/2022 by Matthew Lindsey CNP. NAZIA--11/21/22 NOV--NOTHING SCHEDULED LAST REFILL--10/19/22 30 WITH 5 REFILLS 11/14/22 60 WITH 1 REFILL LAST LABS--06/11/22 documented in this encounter [facility] 12-07-2022 Miscellaneous Notes Attempted to contact patient to follow up from procedure. Left a message asking patient to return the call if they have any questions or concerns. Robert Verma CMA documented in this encounter [facility] 12-05-2022 Note HNO ID: [id number] Author: Nigel Morse MD Service: ? Author Type: Physician Type: Progress Notes Filed: 12/05/2022 12:32 PM Note Text: [facility] Date: 12/05/2022 Patient name: Ni Kelley Physician performing procedure: Nigel Morse M.D., M.B.A. Diagnosis: (M48.061) Spinal stenosis of lumbar region, unspecified whether neurogenic claudication present (primary encounter diagnosis) (M54.16) Lumbar radiculopathy Procedure: Epidural Steroid Injection - Interlaminar Approach (ILESI) under fluoroscopic guidance RIGHT-BIAS at L4-5 Injectate: A total of 6 ml volume was injected The injectate consisted of: 1 ml of Depo-medrol (40mg/cc), The remainder consisting of Normal Saline Comments: None Improvement after today's procedure: as per nursing report HPI: Ni Kelley is an 37 year old FEMALE who presents today, in pain, for the procedure noted above. Review of Systems: Pertinent Positives: MSK: pain in the region being treated Neuro: no weakness or numbness in the region being treated Skin: Negative (No itching) Eyes: Negative (No blurred or double vision) Respiratory: Negative (No Cough, Drwnmshlx-ag-qxmvet, Dyspnea on exertion, wheezing) Cardiovascular: Negative (No Chest Pain, Tightness, Pressure, Palpitations) Gastrointestinal: Negative (No Abdominal pain, Nausea, Vomiting, Constipation, Diarrhea) Genitourinary: Negative (No dysuria) Hematologic: Negative (No bleeding, bruising) OB: is Denied or Not Applicable Endocrine: Negative (No hot/cold intolerance) Psychiatric: Negative (No depression, anxiety or suicidal ideation) PAST MEDICAL HISTORY Diagnosis Date Allergic rhinitis due to animal hair and dander 12/04/2018 History of substance abuse (HCC) Plantar fasciitis 12/04/2018 PAST SURGICAL HISTORY Procedure Laterality Date COLONOSCOPY GEN ANES 01/13/2021 EGD 01/13/2021 PAST SURGICAL HISTORY OF 2011 genital vaginal hematoma FAMILY HISTORY Problem Relation Age of Onset Diabetes Mother Hypertension Father Hyperlipidemia Father Anxiety disorder Father Depression Father Social History Tobacco Use Smoking status: Every Day Packs/day: 1.00 Years: 17.00 Additional pack years: 0.00 Total pack years: 17.00 Types: Cigarettes Smokeless tobacco: Never Vaping Use Vaping Use: Never used Substance Use Topics Alcohol use: Yes Comment: occasional Drug use: Not Currently Types: Amphetamines, Crystal Meth, Heroin Comment: none since 06/2015 Current Outpatient Medications on File Prior to Visit Medication Sig HYDROcodone-acetaminophen (NORCO) 5-325 mg per tablet Take 1 tablet by mouth twice daily as needed for pain for up to 7 days. buPROPion XL (WELLBUTRIN XL) 150 mg 24 hr tablet Take 1 tablet by mouth once daily. pregabalin (LYRICA) 300 mg capsule Take 1 capsule by mouth twice daily for 30 days. omeprazole (PRILOSEC) 20 mg capsule Take 1 capsule by mouth daily before breakfast. 1/2 hr before meal. escitalopram oxalate (LEXAPRO) 20 mg tablet Take 1 tablet by mouth once daily. No current facility-administered medications on file prior to visit. Objective Exam: Vitals: As per nursing documentation Constitutional: Normal Appearance, Oriented to Time, Place and Person Head: No lacerations, no external signs of trauma Eyes: Conjunctiva clear. No discharge from the eyes Cardiovascular: Appears well-perfused Pulmonary: Non-labored respirations Abdominal: Non-distended Skin: No visible rashes or ecchymosis Psychiatric: Mood appropriate for given condition Neurological: Gross movements are limited by pain, but otherwise unremarkable Data Reviewed: Nursing note and vitals reviewed. Additional imaging reviewed as appropriate Assessment and Plan: As noted above [place] protocol documentation / Pre-Procedure Checklist: Consent: Obtained in writing prior to procedure I had a nice discussion with the patient today about their current pain and the pathology that could be causing it We discussed different treatment options, including risks, benefits and alternatives. We agreed to proceed as previously discussed, or the plan was modified in accordance with the comments noted above Unless stated otherwise in the procedure note, the risks include but are not limited to infection, allergic reaction, increased pain, lack of therapeutic benefit, steroid reaction, nerve damage, paralysis, stroke, epidural hematoma, syncope, headache, respiratory or cardiac arrest, pneumothorax, and scar formation Once the plan was agreed upon, the patient gave written consent to proceed and was transported into the procedure room Surgical/Procedure pause or ?Time Out?: Time Out was led by the physician in the procedure room, with the patient and all staff present and participating The following information was verified during the Time Out proc (more content not included)... [facility] 12-05-2022 Note HNO ID: [id number] Author: Bubba Parry Service: ? Author Type: Hands Parter Type: Progress Notes Filed: 12/05/2022 12:32 PM Note Text: Subjective HPI Review of Systems Constitutional: Negative for chills and fever. Eyes: Negative for blurred vision and double vision. Gastrointestinal: Positive for constipation and diarrhea. Negative for nausea and vomiting. Genitourinary: Positive for frequency and urgency. Musculoskeletal: Positive for back pain, myalgias and neck pain. Negative for falls and joint pain. Neurological: Negative for dizziness, tingling, weakness and headaches. Endo/Heme/Allergies: Does not bruise/bleed easily. Psychiatric/Behavioral: Positive for depression. Negative for substance abuse and suicidal ideas. The patient is nervous/anxious. PAST MEDICAL HISTORY Diagnosis Date Allergic rhinitis due to animal hair and dander 12/04/2018 History of substance abuse (HCC) Plantar fasciitis 12/04/2018 PAST SURGICAL HISTORY Procedure Laterality Date COLONOSCOPY GEN ANES 01/13/2021 EGD 01/13/2021 PAST SURGICAL HISTORY OF 2011 genital vaginal hematoma FAMILY HISTORY Problem Relation Age of Onset Diabetes Mother Hypertension Father Hyperlipidemia Father Anxiety disorder Father Depression Father Social History Tobacco Use Smoking status: Every Day Packs/day: 1.00 Years: 17.00 Additional pack years: 0.00 Total pack years: 17.00 Types: Cigarettes Smokeless tobacco: Never Vaping Use Vaping Use: Never used Substance Use Topics Alcohol use: Yes Comment: occasional Drug use: Not Currently Types: Amphetamines, Crystal Meth, Heroin Comment: none since 06/2015 Current Meds HYDROcodone-acetaminophen (NORCO) 5-325 mg per tablet Take 1 tablet by mouth twice daily as needed for pain for up to 7 days. buPROPion XL (WELLBUTRIN XL) 150 mg 24 hr tablet Take 1 tablet by mouth once daily. pregabalin (LYRICA) 300 mg capsule Take 1 capsule by mouth twice daily for 30 days. omeprazole (PRILOSEC) 20 mg capsule Take 1 capsule by mouth daily before breakfast. 1/2 hr before meal. escitalopram oxalate (LEXAPRO) 20 mg tablet Take 1 tablet by mouth once daily. Objective LMP 11/06/2022 Physical Exam [facility] 11-28-2022 Miscellaneous Notes Refill given to get patient through until pain management intervention. No additional refills. The following approved medication requests have been transmitted electronically. Requested Prescriptions Signed Prescriptions Disp Refills HYDROcodone-acetaminophen (NORCO) 5-325 mg per tablet 14 tablet 0 Sig: Take 1 tablet by mouth twice daily as needed for pain for up to 7 days. Authorizing Provider: MATTHEW LINDSEY APRN.CNP PDMP website checked and validated. All prescriptions have been APPROPRIATELY filled. No suspicious activity was identified. 11/28/2022 by Matthew Lindsey CNP. Patient has been identified by name and date of : Yes Patient phones for refill(s): Requested Prescriptions Pending Prescriptions Disp Refills HYDROcodone-acetaminophen (NORCO) 5-325 mg per tablet 14 tablet 0 Sig: Take 1 tablet by mouth twice daily as needed for pain for up to 7 days. Date of last office visit in primary care: 10/19/2022 Please advise. Thank you. Camilla Wen LPN documented in this encounter [facility] 11-28-2022 Telephone encounter Note Spoke with patient to reschedule no show appt 11/20/22. State she she is having injections in her back and will need to wait to schedule. State that she will call when ready. [facility] 11-28-2022 Miscellaneous Notes Spoke with patient to reschedule no show appt 11/20/22. State she she is having injections in her back and will need to wait to schedule. State that she will call when ready. VM/no mychart to return call to reschedule 11/20/22 no-show appointment with Dr. Crowley. Referral from Dr. Oliveros documented in this encounter [facility] 11-21-2022 Note HNO ID: [id number] Author: Matthew Lindsey APRN.[employer]ER[employer] MACHINE OPERATOR Service: ? Author Type: Nurse Practitioner Type: Progress Notes Filed: 11/21/2022 7:36 AM Note Text: VIRTUAL VISIT PROGRESS NOTE This is a virtual visit using [employer] video visit. It required patient-provider interaction for the medical decision making as documented below. I have communicated my name and active licensure. The patient's identity and physical location were verified at the time of this visit. Either the patient or their legal hardware supplies sales representative has been informed of the risks and benefits of -- and alternatives to -- treatment through a remote evaluation and consents to proceed with the evaluation remotely. Ni Kelley is a 37 year old female seen for pain concerns. Today: Was seen by pain management for her chronic back pain and they recommend an injection-plans to have this done on 12/05. Lyrica doesn't seem to be helping much and is making her sleepy during the day and while she is driving. Previous [place] rx worked well and wondering if she can have another rx to get her through to her appt with pain management on 12/05. HISTORY REVIEWED (electronic chart updated): PAST MEDICAL HISTORY Diagnosis Date Allergic rhinitis due to animal hair and dander 12/04/2018 History of substance abuse (HCC) Plantar fasciitis 12/04/2018 PAST SURGICAL HISTORY Procedure Laterality Date COLONOSCOPY GEN ANES 01/13/2021 EGD 01/13/2021 PAST SURGICAL HISTORY OF 2011 genital vaginal hematoma FAMILY HISTORY Problem Relation Age of Onset Diabetes Mother Hypertension Father Hyperlipidemia Father Anxiety disorder Father Depression Father Social History Tobacco Use Smoking status: Every Day Packs/day: 1.00 Years: 17.00 Additional pack years: 0.00 Total pack years: 17.00 Types: Cigarettes Smokeless tobacco: Never Vaping Use Vaping Use: Never used Substance Use Topics Alcohol use: Yes Comment: occasional Drug use: Not Currently Types: Amphetamines, Crystal Meth, Heroin Comment: none since 06/2015 Current Outpatient Medications Medication Sig buPROPion XL (WELLBUTRIN XL) 150 mg 24 hr tablet Take 1 tablet by mouth once daily. pregabalin (LYRICA) 300 mg capsule Take 1 capsule by mouth twice daily for 30 days. HYDROcodone-acetaminophen (NORCO) 5-325 mg per tablet Take 1 tablet by mouth twice daily as needed for pain for up to 7 days. omeprazole (PRILOSEC) 20 mg capsule Take 1 capsule by mouth daily before breakfast. 1/2 hr before meal. escitalopram oxalate (LEXAPRO) 20 mg tablet Take 1 tablet by mouth once daily. No current facility-administered medications for this visit. ALLERGIES Allergen Reactions Nicotine Rash Nicotine patch-severe rash with the adhesive Cats Intolerance Dogs Intolerance Grass Pollen Intolerance Molds Extract Intolerance REVIEW OF SYSTEMS: All other ROS: negative As noted in HPI PHYSICAL EXAMINATION: VIDEO EXAM: (if completed, performed via video enabled technology) No exam performed ASSESSMENT: (M48.061) Spinal stenosis of lumbar region, unspecified whether neurogenic claudication present (M54.16) Lumbar back pain with radiculopathy affecting right lower extremity (M48.061) Foraminal stenosis of lumbar region (M54.16) Lumbar nerve root impingement (G47.09) Secondary insomnia PLAN: Cut back Lyrica to 300mg qhs x4 days, cut back to 200mg qhs x4 days, then stop. [place] x1 week given. Ok for refill one time in a week (around 11/28) to get her through to pain management on 12/05. No more refills after that. Matthew Lindsey APRN.CNP PDMP website checked and validated. All prescriptions have been APPROPRIATELY filled. No suspicious activity was identified. 11/21/2022 by Matthew Lindsey CNP. [facility] 11-21-2022 Telephone encounter Note VM/no quang to return call to reschedule 11/20/22 no-show appointment with Dr. Crowley. Referral from Dr. Oliveros [facility] 11-21-2022 Miscellaneous Notes VM/no quang to return call to reschedule 11/20/22 no-show appointment with Dr. Crowley. Referral from Dr. Oliveros documented in this encounter [facility] 11-21-2022 Miscellaneous Notes Was seen by myself this morning 11/21/2022. Matthew Lindsey APRN.CNP documented in this encounter [facility] 11-21-2022 History of Present illness Narrative VIRTUAL VISIT PROGRESS NOTE This is a virtual visit using [employer] video visit. It required patient-provider interaction for the medical decision making as documented below. I have communicated my name and active licensure. The patient's identity and physical location were verified at the time of this visit. Either the patient or their legal hardware supplies sales representative has been informed of the risks and benefits of -- and alternatives to -- treatment through a remote evaluation and consents to proceed with the evaluation remotely. Ni Kelley is a 37 year old female seen for pain concerns. Today: Was seen by pain management for her chronic back pain and they recommend an injection-plans to have this done on 12/05. Lyrica doesn't seem to be helping much and is making her sleepy during the day and while she is driving. Previous [place] rx worked well and wondering if she can have another rx to get her through to her appt with pain management on 12/05. HISTORY REVIEWED (electronic chart updated): PAST MEDICAL HISTORY Diagnosis Date Allergic rhinitis due to animal hair and dander 12/04/2018 History of substance abuse (HCC) Plantar fasciitis 12/04/2018 PAST SURGICAL HISTORY Procedure Laterality Date COLONOSCOPY GEN ANES 01/13/2021 EGD 01/13/2021 PAST SURGICAL HISTORY OF 2011 genital vaginal hematoma FAMILY HISTORY Problem Relation Age of Onset Diabetes Mother Hypertension Father Hyperlipidemia Father Anxiety disorder Father Depression Father Social History Tobacco Use Smoking status: Every Day Packs/day: 1.00 Years: 17.00 Additional pack years: 0.00 Total pack years: 17.00 Types: Cigarettes Smokeless tobacco: Never Vaping Use Vaping Use: Never used Substance Use Topics Alcohol use: Yes Comment: occasional Drug use: Not Currently Types: Amphetamines, Crystal Meth, Heroin Comment: none since 06/2015 Current Outpatient Medications Medication Sig buPROPion XL (WELLBUTRIN XL) 150 mg 24 hr tablet Take 1 tablet by mouth once daily. pregabalin (LYRICA) 300 mg capsule Take 1 capsule by mouth twice daily for 30 days. HYDROcodone-acetaminophen (NORCO) 5-325 mg per tablet Take 1 tablet by mouth twice daily as needed for pain for up to 7 days. omeprazole (PRILOSEC) 20 mg capsule Take 1 capsule by mouth daily before breakfast. 1/2 hr before meal. escitalopram oxalate (LEXAPRO) 20 mg tablet Take 1 tablet by mouth once daily. No current facility-administered medications for this visit. ALLERGIES Allergen Reactions Nicotine Rash Nicotine patch-severe rash with the adhesive Cats Intolerance Dogs Intolerance Grass Pollen Intolerance Molds Extract Intolerance REVIEW OF SYSTEMS: All other ROS: negative As noted in HPI PHYSICAL EXAMINATION: VIDEO EXAM: (if completed, performed via video enabled technology) No exam performed ASSESSMENT: (M48.061) Spinal stenosis of lumbar region, unspecified whether neurogenic claudication present (M54.16) Lumbar back pain with radiculopathy affecting right lower extremity (M48.061) Foraminal stenosis of lumbar region (M54.16) Lumbar nerve root impingement (G47.09) Secondary insomnia PLAN: Cut back Lyrica to 300mg qhs x4 days, cut back to 200mg qhs x4 days, then stop. [place] x1 week given. Ok for refill one time in a week (around 11/28) to get her through to pain management on 12/05. No more refills after that. Matthew Lindsey APRN.CNP PDMP website checked and validated. All prescriptions have been APPROPRIATELY filled. No suspicious activity was identified. 11/21/2022 by Matthew Lindsey CNP. documented in this encounter [facility] 11-20-2022 Note HNO ID: [id number] Author: Camryn Garces APRN.CNP Service: ? Author Type: Nurse Practitioner Type: Progress Notes Filed: 11/20/2022 8:37 AM Note Text: Seen on [employer] [facility] Located in [place] C/o back pain. Reports Lyrica is not helping her and would like an extension of pain medication until getting injections. Advised patient unable to prescribe controlled pain medications online and referred to PCP. Pt agreeable to plan and denies further questions and/or concerns. Visit cancelled. Camryn Garces APRN.CNP [facility] 11-20-2022 History of Present illness Narrative Seen on [employer] [facility] Located in [place] C/o back pain. Reports Lyrica is not helping her and would like an extension of pain medication until getting injections. Advised patient unable to prescribe controlled pain medications online and referred to PCP. Pt agreeable to plan and denies further questions and/or concerns. Visit cancelled. Camryn Garces APRN.CNP documented in this encounter [facility] 11-15-2022 Note HNO ID: [id number] Author: Elizabeth Snowden APRN.CNP Service: ? Author Type: Nurse Practitioner Type: Progress Notes Filed: 11/15/2022 4:23 PM Note Text: [facility] Today's Date: 11/14/2022 Last Visit: N/A Name: Ni Kelley : 1985 Purpose: New Patient Consultation Ni Kelley is a 37 year old FEMALE, Patient presents with: New Patient Evaluation Back Pain: Lower Notable Events During Course of Treatment: 11/14/2022 - Initial HPI: Referred by Matthew Lindsey PA-C, with a PMHx of tobacco use, back pain, Flat feet, plantar fascitis, depression/anxiety who presents for back pain Duration: 4-5 years Sudden onset? yes, Trauma? Yes moving a [employer] Prior Treatments: Medications (See below), Injections (See below), Modalities (eg. 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 [employer] Pain Description: Timing: intermittent pain comes and goes but will last for days to weeks Character: aching, throbbing, shooting changes depending on exacerbation Primary Location: low back worse on the right side Radiation: down the right leg into the right hip and into buttocks, and down the side of the leg into the knee cap to the front of the smith to the right great toe Exacerbating factors: sitting, standing, forward flexion, lifting, getting up from sitting, and walking any activity too long Relieving factors: repositioning Interferes with: physical activity, work, sexual relations, walking, sleeping, sitting, bathing, driving, cooking, household cleaning, reaching for shelves, lifting, and social activities The patient reports numbness in her right leg. . Pt has had this pain for 4-5 years, hurt herself moving a cabinet. Pain is described above. Pt states PT helped pt has had a MRI. Patient states the pain comes and goes that some days she does not have any pain states 4-5.days per week she does have pain. Patient has been seen by Dr. Luiz Llanos and is not a surgical candidate at this time. Patient has seen Dr. Smith in the past, has had an transforaminal epidural steroid injection in the past with minimal relief patient states it did not last very long. Patient is here to see what can be done with her pain. Patient is aware that she is not can be pain-free after treatment but she wants to see what kind of improvement she can get to improve her quality of life. INTAKE PAIN ASSESSMENT 11/14/2022 11/14/2022 Are you having pain associated with your visit today? Yes, Provider notified No Pain Scales - - Pain Level 7 - Pain Location Back - Description Aching;Burning;Numbness;Pressure; Sharp;Sore;Throbbing;Tightness;Ti ngling - Duration Amount of Time 24 - Duration Units Months - Frequency Continuous - Intervention/Comfort measure - - Comments - - Pain Assessment - - Medications: CURRENT Pain Medications: Membrane Stabilizers: Lyrica (Pregabalin) 300 mg bid NSAIDS: Motrin (Ibuprofen)800 mg most days one time per day Opioids: Vicodin or [place] (Hydrocodone) as needed (bedtime) Muscle Relaxants: none Topicals: none Other Prescription or OTC Pain Medications: none Anti-depressants: Lexapro and Wellbutrin Pain Medications Taken TO DATE (for the chief complaint(s)): Membrane Stabilizers: Gabapentin negative side effects. NSAIDS: Opioids: Muscle Relaxants: Topicals: Other Prescription,OTC Pain Medications, and or Bio Freeze: Anti-depressants: Non-Pain Meds of Note: none Allergies: ALLERGIES Allergen Reactions Nicotine Rash Nicotine patch-severe rash with the adhesive Cats Intolerance Dogs Intolerance Grass Pollen Intolerance Molds Extract Intolerance Compliance: PDMP website checked and validated. All prescriptions have been APPROPRIATELY filled. No suspicious activity was identified. 11/14/2022 by Elizabeth Snowden APRN.WEATHERSTRIP MACHINE OPERATOR Last Drug screen: Not Applicable Pill Count: No question data found. Risk Assessment: Opioid Risk Tool: Opioid Risk Tool: Greenlight Questionnaire GREENLIGHT Completed Date 11/15/2022 Opioid Risk Tool Opiod Risk Tool Date Completed 11/15/2022 Comments 20 (Clean from addiction x 7 years) TODD-7 Anxiety Score 4 Completed Date 11/15/2022 PHQ9P Score 12 Completed Date 11/15/2022 (0-3, low risk or no risk; 4-7, moderate risk, 8+, high risk) TODD-7: TODD - 7 SCORES 09/19/2022 11/14/2022 11/15/2022 TODD-7 Score 7 7 4 (0-4) minimal anxiety, (5-9) mild anxiety, (10-14) moderate anxiety, (15-21) severe anxiety PHQ-9: PHQ-9 11/14/2022 11/14/2022 11/15/2022 Score 12 12 12 (0-4) minimal depression, (5-9) mild depression, (10-14) moderate depression, (15-19) moderately severe depression, (20-27) severe depression Diagnostic Studies: Relevant Imaging: Reviewed Personally on today's date, noted above MRI Spine Report MRI LUMBAR SPINE WO IVCON Exam End: 09/06/2022 12:06 PM (Final result) Narrative: * * *Final Report* * (more content not included)... [facility] 11-15-2022 Note HNO ID: [id number] Author: Alba Benson MA Service: ? Author Type: Hands Parter Type: Progress Notes Filed: 11/15/2022 4:23 PM Note Text: Review of Systems Constitutional: Positive for unexpected weight change. Negative for activity change, chills and fever. Gastrointestinal: Negative for bowel retention or incontinence Genitourinary: Negative for difficulty urinating. Negative for bladder retention or incontinence Musculoskeletal: Positive for arthralgias, back pain, gait problem, joint swelling, myalgias, neck pain and neck stiffness. Neurological: Positive for weakness and numbness. Negative for headaches. Psychiatric/Behavioral: Positive for dysphoric mood and sleep disturbance. Negative for suicidal ideas. The patient is nervous/anxious. [facility] 11-15-2022 Miscellaneous Notes Procedure(s) being scheduled: 1.Are you diabetic No 2. Are you on any blood thinners? No If yes, does it require a hold? No If yes, was approval letter sent? No 3. Are you taking any aspirin? No 4. Are you currently taking any antibiotics? No If yes, is it prophylactic or for treatment of an infection? NA 5. Do you have any allergies to latex? No 6. Do you have any allergies to seafood or shellfish? No 7. Do you have any allergies to x-ray dye? No 8. Did the physician instruct you to take any medication prior to your procedure? No 9. Does this procedure require a yard driver? Yes If yes, has patient been notified that a yard driver is needed and must be present at check in? Yes 10. Were the pre-procedure instructions explained and provided to the patient? Yes 11. Do you have a pacemaker? No 12. Do you have an internal stimulator of any kind? No If yes, please bring the remote with you to your procedure visit. 13. Have you received the COVID-19 Vaccine? Yes. If yes, date(s) received: 04/2020 (Patient should not receive a procedure including steroids 14 days prior to their first dose of the COVID vaccine. They should not receive any procedure containing steroids in the time frame between their 1st and 2nd doses of the COVID vaccine. They should not receive a procedure containing steroids 14 days after their 2nd dose of the COVID vaccine.) Carmel Jasso documented in this encounter [facility] 11-15-2022 Miscellaneous Notes Patient has been identified by name and date of : Yes, Patient phones for refill(s): Requested Prescriptions Pending Prescriptions Disp Refills buPROPion XL (WELLBUTRIN XL) 150 mg 24 hr tablet 30 tablet 0 Sig: Take 1 tablet by mouth once daily. Date of last office visit in primary care: 10/19/2022 Please advise. Thank you. Camilla Wen LPN documented in this encounter [facility] 11-15-2022 History of Present illness Narrative Images from the original note were not included. [facility] Today's Date: 11/14/2022 Last Visit: N/A Name: Ni Kelley : 1985 Purpose: New Patient Consultation Ni Kelley is a 37 year old FEMALE, Patient presents with: New Patient Evaluation Back Pain: Lower Notable Events During Course of Treatment: 11/14/2022 - Initial HPI: Referred by Matthew Lindsey PA-C, with a PMHx of tobacco use, back pain, Flat feet, plantar fascitis, depression/anxiety who presents for back pain Duration: 4-5 years Sudden onset? yes, Trauma? Yes moving a china cabinet Prior Treatments: Medications (See below), Injections (See below), Modalities (eg. 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 [employer] Pain Description: Timing: intermittent pain comes and goes but will last for days to weeks Character: aching, throbbing, shooting changes depending on exacerbation Primary Location: low back worse on the right side Radiation: down the right leg into the right hip and into buttocks, and down the side of the leg into the knee cap to the front of the smith to the right great toe Exacerbating factors: sitting, standing, forward flexion, lifting, getting up from sitting, and walking any activity too long Relieving factors: repositioning Interferes with: physical activity, work, sexual relations, walking, sleeping, sitting, bathing, driving, cooking, household cleaning, reaching for shelves, lifting, and social activities The patient reports numbness in her right leg. . Pt has had this pain for 4-5 years, hurt herself moving a cabinet. Pain is described above. Pt states PT helped pt has had a MRI. Patient states the pain comes and goes that some days she does not have any pain states 4-5.days per week she does have pain. Patient has been seen by Dr. Luiz Llanos and is not a surgical candidate at this time. Patient has seen Dr. Smith in the past, has had an transforaminal epidural steroid injection in the past with minimal relief patient states it did not last very long. Patient is here to see what can be done with her pain. Patient is aware that she is not can be pain-free after treatment but she wants to see what kind of improvement she can get to improve her quality of life. INTAKE PAIN ASSESSMENT 11/14/2022 11/14/2022 Are you having pain associated with your visit today? Yes, Provider notified No Pain Scales - - Pain Level 7 - Pain Location Back - Description Aching;Burning;Numbness;Pressure; Sharp;Sore;Throbbing;Tightness;Ti ngling - Duration Amount of Time 24 - Duration Units Months - Frequency Continuous - Intervention/Comfort measure - - Comments - - Pain Assessment - - Medications: CURRENT Pain Medications: Membrane Stabilizers: Lyrica (Pregabalin) 300 mg bid NSAIDS: Motrin (Ibuprofen)800 mg most days one time per day Opioids: Vicodin or [place] (Hydrocodone) as needed (bedtime) Muscle Relaxants: none Topicals: none Other Prescription or OTC Pain Medications: none Anti-depressants: Lexapro and Wellbutrin Pain Medications Taken TO DATE (for the chief complaint(s)): Membrane Stabilizers: Gabapentin negative side effects. NSAIDS: Opioids: Muscle Relaxants: Topicals: Other Prescription,OTC Pain Medications, and or Bio Freeze: Anti-depressants: Non-Pain Meds of Note: none Allergies: ALLERGIES Allergen Reactions Nicotine Rash Nicotine patch-severe rash with the adhesive Cats Intolerance Dogs Intolerance Grass Pollen Intolerance Molds Extract Intolerance Compliance: PDMP website checked and validated. All prescriptions have been APPROPRIATELY filled. No suspicious activity was identified. 11/14/2022 by Elizabeth Snowden APRN.WEATHERSTRIP MACHINE OPERATOR Last Drug screen: Not Applicable Pill Count: No question data found. Risk Assessment: Opioid Risk Tool: Opioid Risk Tool: Greenlight Questionnaire GREENLIGHT Completed Date 11/15/2022 Opioid Risk Tool Opiod Risk Tool Date Completed 11/15/2022 Comments 20 (Clean from addiction x 7 years) TODD-7 Anxiety Score 4 Completed Date 11/15/2022 PHQ9P Score 12 Completed Date 11/15/2022 (0-3, low risk or no risk; 4-7, moderate risk, 8+, high risk) TODD-7: TODD - 7 SCORES 09/19/2022 11/14/2022 11/15/2022 TODD-7 Score 7 7 4 (0-4) minimal anxiety, (5-9) mild anxiety, (10-14) moderate anxiety, (15-21) severe anxiety PHQ-9: PHQ-9 11/14/2022 11/14/2022 11/15/2022 Score 12 12 12 (0-4) minimal depression, (5-9) mild depression, (10-14) moderate depression, (15-19) moderately severe depression, (20-27) severe depression Diagnostic Studies: Relevant Imaging: Reviewed Personally on today's date, noted above MRI Spine Report MRI LUMBAR SPINE WO IVCON Exam End: 09/06/2022 12:06 PM (Final result) Narrative: * * *Final Report* * * DATE OF EXAM: Sep 06 2022 12:06PM JESUSITA Cadet3 - MRI LUMBAR SPINE WO IVCON / PROCEDURE REASON: multiple diagnoses * * * * Physician Interpretation * * * * EXAMINATION: MRI LUMBAR SPINE WO IVCON CLINICAL HISTORY: Spinal stenosis of lumbar region, unspecified whether neurogenic claudication present Lumbar back pain with radiculopathy affecting right lower extremity Foraminal stenosis of lumbar region Acute right-sided low back pain with right-sided sciatica TECHNIQUE: Routine lumbosacral spine MR protocol without gadolinium. MQ: [id number] COMPARISON: MRI lumbar spine from 07/29/2019 RESULT: Counting reference: Lumbosacral junction. For the purposes of this report, L4-5 is considered the level of the iliac crest and assume there are 5 lumbar-type vertebrae. Anatomic variant: None. Localizer images: There is a new large right parapelvic cyst measuring approximately 5.5 cm in diameter (series 1 image 20 and series 4 image 12). Alignment: Alignment is anatomic. Stable mild loss of disc height at L4-L5 reflecting degeneration. Bone marrow signal/fracture: No evidence of pathologic marrow infiltration. No evidence of prior fracture. Conus: The conus is within normal limits of signal intensity and morphology terminating at L2. Nerve roots are normal in appearance. There is no abnormal enhancement. Paraspinal soft tissues: Paraspinal soft tissues are within normal limits. Lower thoracic spine: Visualized lower thoracic canal and foramina are patent. L1-L2: Canal and foramina are patent. L2-L3: Canal and foramina are patent L3-L4: Canal and foramina are patent L4-L5: Again noted is mild canal stenosis due to small central disc protrusion. Stable bilateral moderate L4-L5 neural foraminal stenosis. L5-S1: Canal and foramina are patent Sacrum and iliac wings: The visualized sacrum and iliac wings are within normal limits. Impression: IMPRESSION: Interval development of a 5.5 cm right parapelvic cyst. Otherwise stable MRI lumbar spine showing mild degenerative disc disease at L4-L5 with bilateral moderate neural foraminal stenoses. Anatomic Lumbar Variant: None. L4-5 is considered the level of the iliac crest and assume there are 5 lumbar-type vertebrae. Back Roll Lathe Operator: PSCB Transcribe Date/Time: Sep 06 2022 1:42P Dictated by : DANA SANTORO MD This examination was interpreted and the report reviewed and electronically signed by: DANA SANTORO MD on Sep 06 2022 1:44PM EST Electrodiagnostic Study (EMG): None Pain Procedures: DATE PROCEDURE IMPROVEMENT None to date at this practice Current Medications, Past Medical History, Past Surgical History, Family History, Social History and Review of Systems: On today's date, noted above, I have confirmed and edited as necessary, the PFSH and ROS obtained by others. Physical Exam: 11/15/22 1302 Pulse: 97 Resp: 16 SpO2: 98% Physical Exam Vitals reviewed. Constitutional: General: She is not in acute distress. Appearance: She is obese. She is not ill-appearing. HENT: Head: Normocephalic and atraumatic. Eyes: Conjunctiva/sclera: Conjunctivae normal. Cardiovascular: Pulses: Normal pulses. Pulmonary: Effort: Pulmonary effort is normal. No respiratory distress. Musculoskeletal: Thoracic back: No tenderness or bony tenderness. No scoliosis. Lumbar back: No tenderness. Normal range of motion. Negative right straight leg raise test and negative left straight leg raise test. No scoliosis. Comments: Hip Flexion: Right- 4/5; Left- 5/5 Knee Extension: Right- 4/5; Left- 5/5 Dorsiflexion: Right- 4/5; Left- 5/5 Plantarflexion: Right- 4/5; Left- 5/5 Special Tests- Facet Loading: Right-Positive; Left Positive SI Compression:Negative AMBER:Right-Positive; Left Positive Skin: General: Skin is warm and dry. Neurological: Mental Status: She is alert and oriented to person, place, and time. Motor: Weakness (right leg when compared to the left) present. Gait: Gait abnormal (antalgic). Tandem walk normal. Deep Tendon Reflexes: Reflexes are normal and symmetric. Reflex Scores: Patellar reflexes are 2+ on the right side and 2+ on the left side. Psychiatric: Mood and Affect: Mood and affect normal. Behavior: Behavior normal. Behavior is cooperative. Diagnoses: (M48.061) Spinal stenosis of lumbar region, unspecified whether neurogenic claudication present (M54.16) Lumbar back pain with radiculopathy affecting right lower extremity Impression: 37 year old female presents with complaint(s) of Low back pain with radicular symptoms as described above. Patient reports this pain is interfering with her activities of daily living. Patient states her symptoms caused her to have difficulty with standing we will order physical therapy to help with strengthening. We will also schedule the patient for an interlaminar epidural steroid injection. We will attempt this to see if will help with the radicular symptoms in her right leg. Pain does not feel to be axial in nature as well as radicular we will attempt to manage the radicular pain first and then move onto the axial pain with potential medial branch nerve blocks. This was discussed with the patient patient appears to understand. Plan: Ni Kelley would benefit from the following to reach personal goals for decreasing pain, improving function and work participation, and/or improving quality of life: Medication(s): continue current medication regime. Additional Studies: none Referrals: Physical Therapy Ordered a ILESI L4-L5 w [facility] ([facility]) Depending on response to the above plan, consider: MBB -Follow-up: 1 month after injection Attribution: In addition to reviewing the information noted above, some elements copied from my most recent clinical note(s), including the physical exam (completed in entirety today), and the impression and plan sections, have been updated where appropriate. All reflect current medical decision making from today's date. Elizabeth Snowden CNP. Pain Management [facility] Review of Systems Constitutional: Positive for unexpected weight change. Negative for activity change, chills and fever. Gastrointestinal: Negative for bowel retention or incontinence Genitourinary: Negative for difficulty urinating. Negative for bladder retention or incontinence Musculoskeletal: Positive for arthralgias, back pain, gait problem, joint swelling, myalgias, neck pain and neck stiffness. Neurological: Positive for weakness and numbness. Negative for headaches. Psychiatric/Behavioral: Positive for dysphoric mood and sleep disturbance. Negative for suicidal ideas. The patient is nervous/anxious. documented in this encounter [facility] 11-14-2022 Note HNO ID: [id number] Author: Matthew Lindsey APRN.WEATHERSTRIP MACHINE OPERATOR Service: ? Author Type: Nurse Practitioner Type: Progress Notes Filed: 11/14/2022 4:14 PM Note Text: VIRTUAL VISIT PROGRESS NOTE This is a virtual visit using [employer] video visit. It required patient-provider interaction for the medical decision making as documented below. I have communicated my name and active licensure. The patient's identity and physical location were verified at the time of this visit. Either the patient or their legal hardware supplies sales representative has been informed of the risks and benefits of -- and alternatives to -- treatment through a remote evaluation and consents to proceed with the evaluation remotely. Ni Kelley is a 37 year old female seen for pain concerns. On 10/19/2022 was switched from gabapentin to Lyrica by myself due to side effect of sleepiness. Today: Lyrica is not working-she is in too much pain. Having difficulty sleeping r/t the pain. Cannot go into stores due to pain. HISTORY REVIEWED (electronic chart updated): PAST MEDICAL HISTORY Diagnosis Date Allergic rhinitis due to animal hair and dander 12/04/2018 History of substance abuse (HCC) Plantar fasciitis 12/04/2018 PAST SURGICAL HISTORY Procedure Laterality Date COLONOSCOPY GEN ANES 01/13/2021 EGD 01/13/2021 PAST SURGICAL HISTORY OF 2011 genital vaginal hematoma FAMILY HISTORY Problem Relation Age of Onset Diabetes Mother Hypertension Father Hyperlipidemia Father Anxiety disorder Father Depression Father Social History Tobacco Use Smoking status: Every Day Packs/day: 1.00 Years: 17.00 Additional pack years: 0.00 Total pack years: 17.00 Types: Cigarettes Smokeless tobacco: Never Vaping Use Vaping Use: Never used Substance Use Topics Alcohol use: Yes Comment: occasional Drug use: Not Currently Types: Amphetamines, Crystal Meth, Heroin Comment: none since 06/2015 Current Outpatient Medications Medication Sig buPROPion XL (WELLBUTRIN XL) 150 mg 24 hr tablet Take 1 tablet by mouth once daily. Pregabalin (LYRICA) 200 mg capsule Take 1 capsule by mouth twice daily for 90 days. omeprazole (PRILOSEC) 20 mg capsule Take 1 capsule by mouth daily before breakfast. 1/2 hr before meal. escitalopram oxalate (LEXAPRO) 20 mg tablet Take 1 tablet by mouth once daily. cholecalciferol, Vitamin D3, (VITAMIN D3) 1,250 mcg (50,000 unit) cap capsule Take 1 capsule by mouth one time a week. (Patient not taking: Reported on 10/19/2022) capsaicin (ZOSTRIX) 0.025 % cream Apply to affected area three times daily. lidocaine-hydrocortisone 3-0.5 % crea Apply to affected area three times daily as needed. clobetasol (TEMOVATE) 0.05 % cream Apply to affected area twice daily. No current facility-administered medications for this visit. ALLERGIES Allergen Reactions Nicotine Rash Nicotine patch-severe rash with the adhesive Cats Intolerance Dogs Intolerance Grass Pollen Intolerance Molds Extract Intolerance REVIEW OF SYSTEMS: All other ROS: negative As noted in HPI PHYSICAL EXAMINATION: VIDEO EXAM: (if completed, performed via video enabled technology) Appears in mild distress. Is pleasant. ASSESSMENT: (M48.061) Spinal stenosis of lumbar region, unspecified whether neurogenic claudication present (primary encounter diagnosis) (M54.16) Lumbar back pain with radiculopathy affecting right lower extremity (M48.061) Foraminal stenosis of lumbar region (M54.16) Lumbar nerve root impingement (G47.09) Secondary insomnia PLAN: Increase Lyrica from 200mg bid to 300mg bid. Follow up in 2-4 weeks. [place] bid prn pain and insomnia secondary to pain x7 days. PDMP website checked and validated. All prescriptions have been APPROPRIATELY filled. No suspicious activity was identified. 11/14/2022 by Matthew Lindsey CNP. Matthew Lindsey APRN.ANDREINA [facility] 11-14-2022 History of Present illness Narrative VIRTUAL VISIT PROGRESS NOTE This is a virtual visit using [employer] Medical video visit. It required patient-provider interaction for the medical decision making as documented below. I have communicated my name and active licensure. The patient's identity and physical location were verified at the time of this visit. Either the patient or their legal hardware supplies sales representative has been informed of the risks and benefits of -- and alternatives to -- treatment through a remote evaluation and consents to proceed with the evaluation remotely. Ni Kelley is a 37 year old female seen for pain concerns. On 10/19/2022 was switched from gabapentin to Lyrica by myself due to side effect of sleepiness. Today: Stacyrica is not working-she is in too much pain. Having difficulty sleeping r/t the pain. Cannot go into stores due to pain. HISTORY REVIEWED (electronic chart updated): PAST MEDICAL HISTORY Diagnosis Date Allergic rhinitis due to animal hair and dander 12/04/2018 History of substance abuse ([facility]) Plantar fasciitis 12/04/2018 PAST SURGICAL HISTORY Procedure Laterality Date COLONOSCOPY GEN ANES 01/13/2021 EGD 01/13/2021 PAST SURGICAL HISTORY OF 2010 genital vaginal hematoma FAMILY HISTORY Problem Relation Age of Onset Diabetes Mother Hypertension Father Hyperlipidemia Father Anxiety disorder Father Depression Father Social History Tobacco Use Smoking status: Every Day Packs/day: 1.00 Years: 17.00 Additional pack years: 0.00 Total pack years: 17.00 Types: Cigarettes Smokeless tobacco: Never Vaping Use Vaping Use: Never used Substance Use Topics Alcohol use: Yes Comment: occasional Drug use: Not Currently Types: Amphetamines, Crystal Meth, Heroin Comment: none since 06/2015 Current Outpatient Medications Medication Sig buPROPion XL (WELLBUTRIN XL) 150 mg 24 hr tablet Take 1 tablet by mouth once daily. Pregabalin (LYRICA) 200 mg capsule Take 1 capsule by mouth twice daily for 90 days. omeprazole (PRILOSEC) 20 mg capsule Take 1 capsule by mouth daily before breakfast. 1/2 hr before meal. escitalopram oxalate (LEXAPRO) 20 mg tablet Take 1 tablet by mouth once daily. cholecalciferol, Vitamin D3, (VITAMIN D3) 1,250 mcg (50,000 unit) cap capsule Take 1 capsule by mouth one time a week. (Patient not taking: Reported on 10/19/2022) capsaicin (ZOSTRIX) 0.025 % cream Apply to affected area three times daily. lidocaine-hydrocortisone 3-0.5 % crea Apply to affected area three times daily as needed. clobetasol (TEMOVATE) 0.05 % cream Apply to affected area twice daily. No current facility-administered medications for this visit. ALLERGIES Allergen Reactions Nicotine Rash Nicotine patch-severe rash with the adhesive Cats Intolerance Dogs Intolerance Grass Pollen Intolerance Molds Extract Intolerance REVIEW OF SYSTEMS: All other ROS: negative As noted in HPI PHYSICAL EXAMINATION: VIDEO EXAM: (if completed, performed via video enabled technology) Appears in mild distress. Is pleasant. ASSESSMENT: (M48.061) Spinal stenosis of lumbar region, unspecified whether neurogenic claudication present (primary encounter diagnosis) (M54.16) Lumbar back pain with radiculopathy affecting right lower extremity (M48.061) Foraminal stenosis of lumbar region (M54.16) Lumbar nerve root impingement (G47.09) Secondary insomnia PLAN: Increase Lyrica from 200mg bid to 300mg bid. Follow up in 2-4 weeks. [place] bid prn pain and insomnia secondary to pain x7 days. PDMP website checked and validated. All prescriptions have been APPROPRIATELY filled. No suspicious activity was identified. 11/14/2022 by Matthew Lindsey CNP. Matthew Lindsey APRN.ANDREINA documented in this encounter [facility] 11-01-2022 Miscellaneous Notes This was addressed from other encounter from today. Closing this one. Thank you, Maddie Frost APRN.ANDREINA Please see pt message Rocio Worley documented in this encounter [facility] 11-01-2022 Miscellaneous Notes The following approved medication requests have been transmitted electronically. Requested Prescriptions Signed Prescriptions Disp Refills buPROPion XL (WELLBUTRIN XL) 150 mg 24 hr tablet 30 tablet 0 Sig: Take 1 tablet by mouth once daily. Maddie Frost APRN.CNP Please see pt message Rocio Worley documented in this encounter [facility] 10-19-2022 Note HNO ID: [id number] Author: Matthew Lindsey APRN.WEATHERSTRIP MACHINE OPERATOR Service: ? Author Type: Nurse Practitioner Type: Progress Notes Filed: 10/21/2022 10:13 PM Note Text: Chief Complaint Patient presents with: Medication Follow-up: Forgetfulness HPI Ni Kelley is a 36 year old female who presents here today for Above Complaints. Today: Is taking gabapentin thinks she is getting forgetful. Sometimes trouble finding words for simple things such as microwave. Is in a fog a bit. Falls asleep every time she sits down. Bowels-in the mornings and then till about 3 in the afternoon. Is very runny and if has to go, has to go. Has been incontinent at times. At bedtime will have bad painful gas and difficulty getting it out. Past medical history, appointments, medications, allergies reviewed. Previous Medical History PAST MEDICAL HISTORY Diagnosis Date Allergic rhinitis due to animal hair and dander 12/04/2018 History of substance abuse (HCC) Plantar fasciitis 12/04/2018 Previous Surgical History PAST SURGICAL HISTORY Procedure Laterality Date COLONOSCOPY GEN ANES 01/13/2021 EGD 01/13/2021 PAST SURGICAL HISTORY OF 2011 genital vaginal hematoma Family History FAMILY HISTORY Problem Relation Age of Onset Diabetes Mother Hypertension Father Hyperlipidemia Father Anxiety disorder Father Depression Father Patient Allergies ALLERGIES Allergen Reactions Nicotine Rash Nicotine patch-severe rash with the adhesive Cats Intolerance Dogs Intolerance Grass Pollen Intolerance Molds Extract Intolerance Current Medications Current Outpatient Medications on File Prior to Visit Medication Sig buPROPion XL (WELLBUTRIN XL) 300 mg 24 hr tablet Take 1 tablet by mouth once daily. gabapentin (NEURONTIN) 800 mg tablet Take 1 tablet by mouth three times daily for 30 days. omeprazole (PRILOSEC) 20 mg capsule Take 1 capsule by mouth daily before breakfast. 1/2 hr before meal. escitalopram oxalate (LEXAPRO) 20 mg tablet Take 1 tablet by mouth once daily. capsaicin (ZOSTRIX) 0.025 % cream Apply to affected area three times daily. cholecalciferol, Vitamin D3, (VITAMIN D3) 1,250 mcg (50,000 unit) cap capsule Take 1 capsule by mouth one time a week. (Patient not taking: Reported on 10/19/2022) lidocaine-hydrocortisone 3-0.5 % crea Apply to affected area three times daily as needed. clobetasol (TEMOVATE) 0.05 % cream Apply to affected area twice daily. No current facility-administered medications on file prior to visit. Social History Social History Tobacco Use Smoking status: Every Day Packs/day: 1.00 Years: 17.00 Total pack years: 17.00 Types: Cigarettes Smokeless tobacco: Never Vaping Use Vaping Use: Never used Substance Use Topics Alcohol use: Yes Comment: occasional Drug use: Not Currently Types: Amphetamines, Crystal Meth, Heroin Comment: none since 06/2015 Review of Symptoms REVIEW OF SYSTEMS See HPI, otherwise negative EXAM: BP 122/80 (BP Site: Left Arm, BP Position: Sitting, BP Cuff Size: Large Adult) Pulse 99 Resp 16 Wt 125.2 kg (276 lb) LMP 01/31/2021 SpO2 98% BMI 43.23 kg/m? General Appearance: Well appearing, alert, in no acute distress, well-hydrated, well nourished.. Lungs: Lungs clear to auscultation. No wheezing, rhonchi, rales.. Heart: RRR without murmur, gallop, or rubs. No ectopy. Psychiatric: pleasant, cooperative. Health Maintenance List HEPATITIS B(1 of 3 - 3-dose series) Never done PNEUMOCOCCAL(1 - PCV) Never done HEPATITIS C SCREENING Never done HIV SCREENING Never done DTAP,TDAP,TD(1 - Tdap) Never done PAP TESTING Never done HPV TESTING Never done COVID-19 VACCINE(3 - Moderna series) due on 06/22/2020 INFLUENZA(1) due on 11/09/2022 HPV VACCINE Aged Out Data reviewed Previous records, office notes ASSESSMENT/PLAN: 1. Abdominal pain, unspecified abdominal location - ICD9: 789.00, ICD10: R10.9 (primary diagnosis) - [place] low residue diet - OMEPRAZOLE 20 MG CAPSULE,DELAYED RELEASE - OMEPRAZOLE 20 MG CAPSULE,DELAYED RELEASE - ENTERIC BACTERIAL PANEL BY PCR - OVA + PARA MICROSCOPIC - C. DIFFICILE PCR - H PYLORI AG BY EIA,STOOL 2. Spinal stenosis of lumbar region, unspecified whether neurogenic claudication present - ICD9: 724.02, ICD10: M48.061 Stop gabapentin, switch to Lyrica. Follow up in 1 month to review. - PREGABALIN 200 MG CAPSULE 3. Lumbar back pain with radiculopathy affecting right lower extremity - ICD9: 724.4, ICD10: M54.16 Stop gabapentin, switch to Lyrica. Follow up in 1 month to review. - PREGABALIN 200 MG CAPSULE 4. Foraminal stenosis of lumbar region - ICD9: 724.02, ICD10: M48.061 Stop gabapentin, switch to Lyrica. Follow up in 1 month to review. - PREGABALIN 200 MG CAPSULE 5. Acute right-sided low back pain with right-sided sciatica - ICD9: 724.2, 724.3, ICD10: M54.41 Stop gabapentin, switch to Lyrica. Follow up in 1 month to review. - PREGABALIN (more content not included)... [facility] 10-19-2022 History of Present illness Narrative Chief Complaint Patient presents with: Medication Follow-up: Forgetfulness HPI Ni Kelley is a 36 year old female who presents here today for Above Complaints. Today: Is taking gabapentin thinks she is getting forgetful. Sometimes trouble finding words for simple things such as microwave. Is in a fog a bit. Falls asleep every time she sits down. Bowels-in the mornings and then till about 3 in the afternoon. Is very runny and if has to go, has to go. Has been incontinent at times. At bedtime will have bad painful gas and difficulty getting it out. Past medical history, appointments, medications, allergies reviewed. Previous Medical History PAST MEDICAL HISTORY Diagnosis Date Allergic rhinitis due to animal hair and dander 12/04/2018 History of substance abuse ([facility]) Plantar fasciitis 12/04/2018 Previous Surgical History PAST SURGICAL HISTORY Procedure Laterality Date COLONOSCOPY GEN ANES 01/13/2021 EGD 01/13/2021 PAST SURGICAL HISTORY OF 2011 genital vaginal hematoma Family History FAMILY HISTORY Problem Relation Age of Onset Diabetes Mother Hypertension Father Hyperlipidemia Father Anxiety disorder Father Depression Father Patient Allergies ALLERGIES Allergen Reactions Nicotine Rash Nicotine patch-severe rash with the adhesive Cats Intolerance Dogs Intolerance Grass Pollen Intolerance Molds Extract Intolerance Current Medications Current Outpatient Medications on File Prior to Visit Medication Sig buPROPion XL (WELLBUTRIN XL) 300 mg 24 hr tablet Take 1 tablet by mouth once daily. gabapentin (NEURONTIN) 800 mg tablet Take 1 tablet by mouth three times daily for 30 days. omeprazole (PRILOSEC) 20 mg capsule Take 1 capsule by mouth daily before breakfast. 1/2 hr before meal. escitalopram oxalate (LEXAPRO) 20 mg tablet Take 1 tablet by mouth once daily. capsaicin (ZOSTRIX) 0.025 % cream Apply to affected area three times daily. cholecalciferol, Vitamin D3, (VITAMIN D3) 1,250 mcg (50,000 unit) cap capsule Take 1 capsule by mouth one time a week. (Patient not taking: Reported on 10/19/2022) lidocaine-hydrocortisone 3-0.5 % crea Apply to affected area three times daily as needed. clobetasol (TEMOVATE) 0.05 % cream Apply to affected area twice daily. No current facility-administered medications on file prior to visit. Social History Social History Tobacco Use Smoking status: Every Day Packs/day: 1.00 Years: 17.00 Total pack years: 17.00 Types: Cigarettes Smokeless tobacco: Never Vaping Use Vaping Use: Never used Substance Use Topics Alcohol use: Yes Comment: occasional Drug use: Not Currently Types: Amphetamines, Crystal Meth, Heroin Comment: none since 06/2015 Review of Symptoms REVIEW OF SYSTEMS See HPI, otherwise negative EXAM: BP 122/80 (BP Site: Left Arm, BP Position: Sitting, BP Cuff Size: Large Adult) Pulse 99 Resp 16 Wt 125.2 kg (276 lb) LMP 01/31/2021 SpO2 98% BMI 43.23 kg/m General Appearance: Well appearing, alert, in no acute distress, well-hydrated, well nourished.. Lungs: Lungs clear to auscultation. No wheezing, rhonchi, rales.. Heart: RRR without murmur, gallop, or rubs. No ectopy. Psychiatric: pleasant, cooperative. Health Maintenance List HEPATITIS B(1 of 3 - 3-dose series) Never done PNEUMOCOCCAL(1 - PCV) Never done HEPATITIS C SCREENING Never done HIV SCREENING Never done DTAP,TDAP,TD(1 - Tdap) Never done PAP TESTING Never done HPV TESTING Never done COVID-19 VACCINE(3 - Moderna series) due on 06/22/2020 INFLUENZA(1) due on 11/09/2022 HPV VACCINE Aged Out Data reviewed Previous records, office notes ASSESSMENT/PLAN: 1. Abdominal pain, unspecified abdominal location - ICD9: 789.00, ICD10: R10.9 (primary diagnosis) - [place] low residue diet - OMEPRAZOLE 20 MG CAPSULE,DELAYED RELEASE - OMEPRAZOLE 20 MG CAPSULE,DELAYED RELEASE - ENTERIC BACTERIAL PANEL BY PCR - OVA + PARA MICROSCOPIC - C. DIFFICILE PCR - H PYLORI AG BY EIA,STOOL 2. Spinal stenosis of lumbar region, unspecified whether neurogenic claudication present - ICD9: 724.02, ICD10: M48.061 Stop gabapentin, switch to Lyrica. Follow up in 1 month to review. - PREGABALIN 200 MG CAPSULE 3. Lumbar back pain with radiculopathy affecting right lower extremity - ICD9: 724.4, ICD10: M54.16 Stop gabapentin, switch to Lyrica. Follow up in 1 month to review. - PREGABALIN 200 MG CAPSULE 4. Foraminal stenosis of lumbar region - ICD9: 724.02, ICD10: M48.061 Stop gabapentin, switch to Lyrica. Follow up in 1 month to review. - PREGABALIN 200 MG CAPSULE 5. Acute right-sided low back pain with right-sided sciatica - ICD9: 724.2, 724.3, ICD10: M54.41 Stop gabapentin, switch to Lyrica. Follow up in 1 month to review. - PREGABALIN 200 MG CAPSULE 6. Lumbar nerve root impingement - ICD9: 724.4, ICD10: M54.16 Stop gabapentin, switch to Lyrica. Follow up in 1 month to review. - PREGABALIN 200 MG CAPSULE 7. Depression with anxiety - ICD9: 300.4, ICD10: F41.8 Continue current escitalopram dose. Add bupropion 100mg bid. Follow up in 1 month to review. - ESCITALOPRAM 20 MG TABLET - BUPROPION HCL SR 100 MG TABLET,12 HR SUSTAINED-RELEASE - ESCITALOPRAM 20 MG TABLET 8. Chronic diarrhea - ICD9: 787.91, ICD10: K52.9 - CALPROTECTIN,FECAL - FECAL LACTOFERRIN/LEUKOCYTES - H PYLORI AG BY EIA,STOOL - ENTERIC BACTERIAL PANEL BY PCR - OVA + PARA MICROSCOPIC - FECAL OCCULT BLOOD TEST - CDIFF PCR W/RFLX EIA IF POSITIVE - ENTERIC BACTERIAL PANEL BY PCR - OVA + PARA MICROSCOPIC - C. DIFFICILE PCR - H PYLORI AG BY EIA,STOOL 9. Incontinence of feces with fecal urgency - ICD9: 787.63, ICD10: R15.9, R15.2 - CALPROTECTIN,FECAL - FECAL LACTOFERRIN/LEUKOCYTES - H PYLORI AG BY EIA,STOOL - ENTERIC BACTERIAL PANEL BY PCR - OVA + PARA MICROSCOPIC - FECAL OCCULT BLOOD TEST - CDIFF PCR W/RFLX EIA IF POSITIVE - ENTERIC BACTERIAL PANEL BY PCR - OVA + PARA MICROSCOPIC - C. DIFFICILE PCR - H PYLORI AG BY EIA,STOOL 10. Abdominal gas pain - ICD9: 787.3, ICD10: R14.1 - CALPROTECTIN,FECAL - FECAL LACTOFERRIN/LEUKOCYTES - H PYLORI AG BY EIA,STOOL - ENTERIC BACTERIAL PANEL BY PCR - OVA + PARA MICROSCOPIC - FECAL OCCULT BLOOD TEST - CDIFF PCR W/RFLX EIA IF POSITIVE - ENTERIC BACTERIAL PANEL BY PCR - OVA + PARA MICROSCOPIC - C. DIFFICILE PCR - H PYLORI AG BY EIA,STOOL Matthew Lindsey APRN.WEATHERSTRIP MACHINE OPERATOR documented in this encounter [facility] 09-24-2022 Note HNO ID: [id number] Author: RT Gian(R) Service: ? Author Type: Systems Technologist Type: Progress Notes Filed: 09/24/2022 1:54 PM Note Text: Radiology Service Progress Note DATE OF SERVICE: September 24, 2022 TIME: 1:53 PM PATIENT IDENTITY VERIFICATION COMPLETED USING TWO (2) STANDARD IDENTIFIERS: Name and Date of confirmed by patient verbally. FALL SCREENING: Has the patient had 2 falls in the last year or 1 fall with injury or currently using an Ambulatory Assistive Device (Walker, Cane, Wheelchair, Crutches, etc.)? No PATIENT GENDER DATA: Female. status: : No status: NO. PATIENT RELEVANT IMPLANT DATA REVIEWED: Yes ALLERGIES: Reviewed and unchanged CONTRAST ALLERGY: NO. EXAM: CT -CONTRAST INDUCED NEPHROPATHY RISK FACTORS: Not applicable CREATININE: Creatinine Date Value Ref Range Status 06/11/2022 0.53 (L) 0.58 - 0.96 mg/dL Final 02/06/2022 0.62 0.58 - 0.96 mg/dL Final 12/08/2020 0.51 (L) 0.58 - 0.96 mg/dL Final Estimated Glomerular Filtration Rate Date Value Ref Range Status 06/11/2022 124 >=60 mL/min/1.73m? Final Comment: Estimated Glomerular Filtration Rate (eGFR) is calculated using the 2020 CKD-EPI creatinine equation. This equation utilizes serum creatinine, sex, and age as parameters. The creatinine assay has traceable calibration to isotope dilution-mass spectrometry. Refer to KDIGO guidelines for clinical interpretation. In patients with unstable renal function, e.g. those with acute kidney injury, the eGFR may not accurately reflect actual GFR. eGFR- Date Value Ref Range Status 12/08/2020 >60 Final P.O.C.T. RESULTS: POC done: Yes, See Lab Tab September 24, 2022 TREATMENT: N/A PERIPHERAL IV DATA: Ambulatory: A peripheral IV was started in the Left antecubital site with a Angio cath: 22 gauge. RADIOLOGY DEPARTMENT: CT; Exam(s) Completed: Abdomen/Pelvis SIGNATURE: RT Nacho(R) PATIENT NAME: Ni Kelley DATE: September 24, 2022 TIME: 1:[address] [facility] 09-24-2022 History of Present illness Narrative Radiology Service Progress Note DATE OF SERVICE: September 24, 2022 TIME: 1:53 PM PATIENT IDENTITY VERIFICATION COMPLETED USING TWO (2) STANDARD IDENTIFIERS: Name and Date of confirmed by patient verbally. FALL SCREENING: Has the patient had 2 falls in the last year or 1 fall with injury or currently using an Ambulatory Assistive Device (Walker, Cane, Wheelchair, Crutches, etc.)? No PATIENT GENDER DATA: Female. status: : No status: NO. PATIENT RELEVANT IMPLANT DATA REVIEWED: Yes ALLERGIES: Reviewed and unchanged CONTRAST ALLERGY: NO. EXAM: CT -CONTRAST INDUCED NEPHROPATHY RISK FACTORS: Not applicable CREATININE: Creatinine Date Value Ref Range Status 06/11/2022 0.53 (L) 0.58 - 0.96 mg/dL Final 02/06/2022 0.62 0.58 - 0.96 mg/dL Final 12/08/2020 0.51 (L) 0.58 - 0.96 mg/dL Final Estimated Glomerular Filtration Rate Date Value Ref Range Status 06/11/2022 124 >=60 mL/min/1.73m Final Comment: Estimated Glomerular Filtration Rate (eGFR) is calculated using the 2020 CKD-EPI creatinine equation. This equation utilizes serum creatinine, sex, and age as parameters. The creatinine assay has traceable calibration to isotope dilution-mass spectrometry. Refer to KDIGO guidelines for clinical interpretation. In patients with unstable renal function, e.g. those with acute kidney injury, the eGFR may not accurately reflect actual GFR. eGFR- Date Value Ref Range Status 12/08/2020 >60 Final P.O.C.T. RESULTS: POC done: Yes, See Lab Tab September 24, 2022 TREATMENT: N/A PERIPHERAL IV DATA: Ambulatory: A peripheral IV was started in the Left antecubital site with a Angio cath: 22 gauge. RADIOLOGY DEPARTMENT: CT; Exam(s) Completed: Abdomen/Pelvis SIGNATURE: RT Nacho(R) PATIENT NAME: Ni Kelley DATE: September 24, 2022 TIME: 1:53 PM documented in this encounter [facility] 09-19-2022 Note HNO ID: [id number] Author: Luz Marina Saba APRN.WEATHERSTRIP MACHINE OPERATOR Service: ? Author Type: Nurse Practitioner Type: Progress Notes Filed: 09/19/2022 6:35 PM Note Text: Chief Complaint Patient presents with: Follow Up: med review This Team Access Model encounter involved medical decision making outside of a scheduled office visit. Patient was offered a virtual/telemedicine appointment in lieu of an office visit due to recommendations to reduce patient exposure to COVID-19. Telephone was used for evaluation of this patient. Patient agrees to the visit: Yes Patient Location: [facility] Ni Kelley is a 36 year old female who is contacted today for a phone visit This is an established patient of Matthew Jones APRN.WEATHERSTRIP MACHINE OPERATOR Reports: Medication follow up. In July Wellbutrin XR 150 mg was added to help with motivation. Taking Lexapro 20 mg daily for anxiety. Anxiety is well controlled. Refers that medication was initially helpful but noticed it stopped working therefore she started taking 2 tablets of Wellbutrin. Motivation and mood have improved with increased dose. Denies any increased sadness, anxiety, Past medical history, appointments, medications, allergies reviewed 09/19/2022 Previous Medical History PAST MEDICAL HISTORY Diagnosis Date Allergic rhinitis due to animal hair and dander 12/04/2018 History of substance abuse (HCC) Plantar fasciitis 12/04/2018 Previous Surgical History PAST SURGICAL HISTORY Procedure Laterality Date COLONOSCOPY GEN ANES 01/13/2021 EGD 01/13/2021 PAST SURGICAL HISTORY OF 2011 genital vaginal hematoma Family History FAMILY HISTORY Problem Relation Age of Onset Diabetes Mother Hypertension Father Hyperlipidemia Father Anxiety disorder Father Depression Father Patient Allergies ALLERGIES Allergen Reactions Nicotine Rash Nicotine patch-severe rash with the adhesive Cats Intolerance Dogs Intolerance Grass Pollen Intolerance Molds Extract Intolerance Current Medications Current Outpatient Medications on File Prior to Visit Medication Sig gabapentin (NEURONTIN) 800 mg tablet Take 1 tablet by mouth three times daily for 30 days. omeprazole (PRILOSEC) 20 mg capsule Take 1 capsule by mouth daily before breakfast. 1/2 hr before meal. escitalopram oxalate (LEXAPRO) 20 mg tablet Take 1 tablet by mouth once daily. buPROPion XL (WELLBUTRIN XL) 150 mg 24 hr tablet Take 1 tablet by mouth once daily. cholecalciferol, Vitamin D3, (VITAMIN D3) 1,250 mcg (50,000 unit) cap capsule Take 1 capsule by mouth one time a week. capsaicin (ZOSTRIX) 0.025 % cream Apply to affected area three times daily. lidocaine-hydrocortisone 3-0.5 % crea Apply to affected area three times daily as needed. clobetasol (TEMOVATE) 0.05 % cream Apply to affected area twice daily. No current facility-administered medications on file prior to visit. Social History Social History Tobacco Use Smoking status: Every Day Packs/day: 1.00 Years: 17.00 Total pack years: 17.00 Types: Cigarettes Smokeless tobacco: Never Vaping Use Vaping Use: Never used Substance Use Topics Alcohol use: Yes Comment: occasional Drug use: Not Currently Types: Amphetamines, Crystal Meth, Heroin Comment: none since 06/2015 Review of Symptoms GENERAL: No malaise or fatigue. No fevers. HEENT: Negative for headaches No eye discharge or redness No earaches No sore throat Nose POS/NEG for congestion and nasal discharge NECK: Negative for pain or swelling. No lumps RESPIRATORY: No wheezing, SOB, Difficulty breathing. No cough CARDIOVASCULAR: Negative for chest pain GI: No nausea, vomiting, or diarrhea MUSCULOSKELETAL: Negative for bodyaches SKIN: Negative for rash or itching Neuro: No lightheadedness or dizziness EXAM: [facility] 01/31/2021 Limited exam as visit was completed over the phone platform. Virtual visit completed using video, limited exam completed. Patient sounds or appears ill: No Patient is not able to speak in complete sentences: N/A Patient has labored breathing: No. Patient is audibly coughing: No Psych: Attitude - cooperative, easily engaged in conversation Affect - Euthymic, normal mood Mental status: Alert. Speech is clear and fluent with good repetition, comprehension Health Maintenance List HEPATITIS B(1 of 3 - 3-dose series) Never done PNEUMOCOCCAL(1 - PCV) Never done HEPATITIS C SCREENING Never done HIV SCREENING Never done DTAP,TDAP,TD(1 - Tdap) Never done PAP TESTING Never done HPV TESTING Never done COVID-19 VACCINE(3 - Moderna series) due on 06/22/2020 INFLUENZA(1) due on 11/09/2022 HPV VACCINE Aged Out Data reviewed Last 5 Encounter BP Readings: Date: BP: 08/25/2022 124/62 08/08/2022 114/70 05/30/2022 122/84 05/03/2022 126/90 01/24/2022 122/80 BMI Readings from Last 5 Encounters: 08/25/22 : 42.91 kg/m? 08/08/22 : 42.32 kg/m? 05/30/22 : 42.16 kg/m? 05/03/22 : 42.26 kg/m? (more content not included)... [facility] 09-19-2022 Instructions Luz Marina Saba APRN.CNP - 09/19/2022 6:34 PM EDT Continue to take Wellbutrin XL 300 mg daily and Lexapro 20 mg daily. Keep upcoming appointment as scheduled. documented in this encounter [facility] 09-19-2022 History of Present illness Narrative Chief Complaint Patient presents with: Follow Up: med review This Team Access Model encounter involved medical decision making outside of a scheduled office visit. Patient was offered a virtual/telemedicine appointment in lieu of an office visit due to recommendations to reduce patient exposure to COVID-19. Telephone was used for evaluation of this patient. Patient agrees to the visit: Yes Patient Location: [facility] Ni Kelley is a 36 year old female who is contacted today for a phone visit This is an established patient of Matthew Jones APRN.WEATHERSTRIP MACHINE OPERATOR Reports: Medication follow up. In July Wellbutrin XR 150 mg was added to help with motivation. Taking Lexapro 20 mg daily for anxiety. Anxiety is well controlled. Refers that medication was initially helpful but noticed it stopped working therefore she started taking 2 tablets of Wellbutrin. Motivation and mood have improved with increased dose. Denies any increased sadness, anxiety, Past medical history, appointments, medications, allergies reviewed 09/19/2022 Previous Medical History PAST MEDICAL HISTORY Diagnosis Date Allergic rhinitis due to animal hair and dander 12/04/2018 History of substance abuse (HCC) Plantar fasciitis 12/04/2018 Previous Surgical History PAST SURGICAL HISTORY Procedure Laterality Date COLONOSCOPY GEN ANES 01/13/2021 EGD 01/13/2021 PAST SURGICAL HISTORY OF 2010 genital vaginal hematoma Family History FAMILY HISTORY Problem Relation Age of Onset Diabetes Mother Hypertension Father Hyperlipidemia Father Anxiety disorder Father Depression Father Patient Allergies ALLERGIES Allergen Reactions Nicotine Rash Nicotine patch-severe rash with the adhesive Cats Intolerance Dogs Intolerance Grass Pollen Intolerance Molds Extract Intolerance Current Medications Current Outpatient Medications on File Prior to Visit Medication Sig gabapentin (NEURONTIN) 800 mg tablet Take 1 tablet by mouth three times daily for 30 days. omeprazole (PRILOSEC) 20 mg capsule Take 1 capsule by mouth daily before breakfast. 1/2 hr before meal. escitalopram oxalate (LEXAPRO) 20 mg tablet Take 1 tablet by mouth once daily. buPROPion XL (WELLBUTRIN XL) 150 mg 24 hr tablet Take 1 tablet by mouth once daily. cholecalciferol, Vitamin D3, (VITAMIN D3) 1,250 mcg (50,000 unit) cap capsule Take 1 capsule by mouth one time a week. capsaicin (ZOSTRIX) 0.025 % cream Apply to affected area three times daily. lidocaine-hydrocortisone 3-0.5 % crea Apply to affected area three times daily as needed. clobetasol (TEMOVATE) 0.05 % cream Apply to affected area twice daily. No current facility-administered medications on file prior to visit. Social History Social History Tobacco Use Smoking status: Every Day Packs/day: 1.00 Years: 17.00 Total pack years: 17.00 Types: Cigarettes Smokeless tobacco: Never Vaping Use Vaping Use: Never used Substance Use Topics Alcohol use: Yes Comment: occasional Drug use: Not Currently Types: Amphetamines, Crystal Meth, Heroin Comment: none since 06/2015 Review of Symptoms GENERAL: No malaise or fatigue. No fevers. HEENT: Negative for headaches No eye discharge or redness No earaches No sore throat Nose POS/NEG for congestion and nasal discharge NECK: Negative for pain or swelling. No lumps RESPIRATORY: No wheezing, SOB, Difficulty breathing. No cough CARDIOVASCULAR: Negative for chest pain GI: No nausea, vomiting, or diarrhea MUSCULOSKELETAL: Negative for bodyaches SKIN: Negative for rash or itching Neuro: No lightheadedness or dizziness EXAM: [facility] 01/31/2021 Limited exam as visit was completed over the phone platform. Virtual visit completed using video, limited exam completed. Patient sounds or appears ill: No Patient is not able to speak in complete sentences: N/A Patient has labored breathing: No. Patient is audibly coughing: No Psych: Attitude - cooperative, easily engaged in conversation Affect - Euthymic, normal mood Mental status: Alert. Speech is clear and fluent with good repetition, comprehension Health Maintenance List HEPATITIS B(1 of 3 - 3-dose series) Never done PNEUMOCOCCAL(1 - PCV) Never done HEPATITIS C SCREENING Never done HIV SCREENING Never done DTAP,TDAP,TD(1 - Tdap) Never done PAP TESTING Never done HPV TESTING Never done COVID-19 VACCINE(3 - Moderna series) due on 06/22/2020 INFLUENZA(1) due on 11/09/2022 HPV VACCINE Aged Out Data reviewed Last 5 Encounter BP Readings: Date: BP: 08/25/2022 124/62 08/08/2022 114/70 05/30/2022 122/84 05/03/2022 126/90 01/24/2022 122/80 BMI Readings from Last 5 Encounters: 08/25/22 : 42.91 kg/m 08/08/22 : 42.32 kg/m 05/30/22 : 42.16 kg/m 05/03/22 : 42.26 kg/m 01/24/22 : 41.25 kg/m Last 5 Encounter Wt Readings: Date: Wt: 08/25/2022 124.3 kg (274 lb) 08/08/2022 122.6 kg (270 lb 3.2 oz) 05/30/2022 122.1 kg (269 lb 3.2 oz) 05/03/2022 122.4 kg (269 lb 12.8 oz) 01/24/2022 119.5 kg (263 lb 6.4 oz) Medication and allergy list reviewed, reconciled and updated 09/19/2022 ASSESSMENT/PLAN: 1. Depression with anxiety - ICD9: 300.4, ICD10: F41.8 - Continue with increase dose of Wellbutrin. - Keep scheduled appointment with PCP. - BUPROPION XL 300 MG 24 HR TAB Keep upcoming appointment as scheduled or follow-up sooner as needed. Discussed treatment plan and patient voices understanding. Patient's questions answered appropriately. Medications and potential side effects were discussed and patient voices understanding. Luz Marina Saba APRN.ANDREINA Total appointment time on phone with patient = 21-30 minutes This note was partially generated using B[employer]ed[employer] voice recognition system. Note was reviewed for accuracy. There may be minor misspellings or grammar miscues with [employer] voice recognition. documented in this encounter [facility] 09-17-2022 Miscellaneous Notes Last office visit: 08/08/22 F/u scheduled: 10/17/22 Christina Triana Ma documented in this encounter [facility] 09-17-2022 Miscellaneous Notes Last office visit: 08/08/22 F/u scheduled: 10/17/22 Christina Triana Ma documented in this encounter [facility] 09-17-2022 Miscellaneous Notes Patient has been identified by name and date of : Yes Patient phones for refill(s): Requested Prescriptions Pending Prescriptions Disp Refills gabapentin (NEURONTIN) 800 mg tablet 90 tablet 0 Sig: Take 1 tablet by mouth three times daily for 30 days. Date of last office visit in primary care: NAZIA 08/08/22 NOV 10/17/22 Last 2 Encounter Wt Readings: Date: Wt: 08/25/2022 124.3 kg (274 lb) 08/08/2022 122.6 kg (270 lb 3.2 oz) Please advise. Thank you. ALETHA Kendrick documented in this encounter [facility] 09-07-2022 Miscellaneous Notes Spoke with pt gave information provided . She voices understanding. Please assist in scheduling with pain management and for ct scan Please let Ni know that I received her MRI results. It does show some mild degerative disc disease. If interested, I would recommend she see pain management for further assessment and possible treatment. It does note a cyst in her parapelvic region. I'm ordering a CT of her abdomen and pelvis to further assess this. Please assist her to schedule this imaging. Matthew Lindsey APRN.CNP documented in this encounter [facility] 09-06-2022 Note HNO ID: [id number] Author: ELI Wilkerson Service: Radiology Author Type: Technologist Type: Progress Notes Filed: 09/06/2022 11:44 AM Note Text: Radiology Service Progress Note PATIENT NAME: Ni Kelley DATE OF SERVICE: September 06, 2022 TIME: 11:44 AM PATIENT IDENTITY VERIFICATION COMPLETED USING TWO (2) IDENTIFIERS: Name and Date of confirmed by patient verbally and Name and Date of confirmed by identification band. FALL SCREENING: Has the patient had 2 falls in the last year or 1 fall with injury or currently using an Ambulatory Assistive Device (Walker, Cane, Wheelchair, Crutches, etc.)? No PATIENT GENDER DATA: Female. status: : No status: NO. PATIENT RELEVANT IMPLANT DATA REVIEWED: Yes RADIOLOGY DEPARTMENT: MR; Exam(s) Completed: Spine: Lumbar spine PERIPHERAL IV DATA: Not applicable SIGNED BY: ELI Wilkerson September 06, 2022 11:[address] [facility] 09-06-2022 History of Present illness Narrative Radiology Service Progress Note PATIENT NAME: Ni Kelley DATE OF SERVICE: September 06, 2022 TIME: 11:44 AM PATIENT IDENTITY VERIFICATION COMPLETED USING TWO (2) IDENTIFIERS: Name and Date of confirmed by patient verbally and Name and Date of confirmed by identification band. FALL SCREENING: Has the patient had 2 falls in the last year or 1 fall with injury or currently using an Ambulatory Assistive Device (Walker, Cane, Wheelchair, Crutches, etc.)? No PATIENT GENDER DATA: Female. status: : No status: NO. PATIENT RELEVANT IMPLANT DATA REVIEWED: Yes RADIOLOGY DEPARTMENT: MR; Exam(s) Completed: Spine: Lumbar spine PERIPHERAL IV DATA: Not applicable SIGNED BY: ELI Wilkerson September 06, 2022 11:44 AM documented in this encounter [facility] 09-03-2022 Miscellaneous Notes Last office visit: 08/08/22 F/u scheduled: 09/10/22 Christina Triana Ma documented in this encounter [facility] 08-27-2022 Miscellaneous Notes Left detailed message on a secured voicemail. Kierra Zuñiga ----- Message from Khushi Carroll APRN.ANDREINA sent at 08/27/2022 7:11 AM EDT ----- Urine culture did not show clear evidence of infection, however it appears sample may have been contaminated with skin bacteria during collection. If not improving, recommend follow up with PCP. Khushi Carroll CNP documented in this encounter [facility] 08-25-2022 Note HNO ID: [id number] Author: Nicki Philip APRN.CNP Service: ? Author Type: Nurse Practitioner Type: Progress Notes Filed: 08/25/2022 1:15 PM Note Text: Subjective The history is provided by the patient. No language assistant was used. MIRIAN Kelley is a 36 year old female who presents today for CC of lower abdominal pain, pelvic pain. This started in the past 2-3 days. She has used no treatment or medications. She denies any known exposure to std's. BP 124/62 Pulse 90 Temp 36.3 ?C (97.3 ?F) Resp 18 Wt 124.3 kg (274 lb) LMP 01/31/2021 SpO2 99% BMI 42.91 kg/m? Social History Tobacco Use Smoking status: Every Day Packs/day: 1.00 Years: 17.00 Pack years: 17.00 Types: Cigarettes Smokeless tobacco: Never Vaping Use Vaping Use: Never used Substance Use Topics Alcohol use: Yes Comment: occasional Drug use: Not Currently Types: Amphetamines, Crystal Meth, Heroin Comment: none since 06/2015 PAST MEDICAL HISTORY Diagnosis Date Allergic rhinitis due to animal hair and dander 12/04/2018 History of substance abuse (HCC) Plantar fasciitis 12/04/2018 I have confirmed and edited as necessary, the [facility] Review of Systems Constitutional: Negative for chills and fever. Gastrointestinal: Negative for abdominal pain, diarrhea, nausea and vomiting. Genitourinary: Negative for dysuria, flank pain, frequency, hematuria and urgency. No vaginal discharge itching or odor. Objective Physical Exam Vitals and nursing note reviewed. Exam conducted with a applied marine physics professor present. Constitutional: Appearance: Normal appearance. Abdominal: General: Bowel sounds are normal. There is no abdominal bruit. Palpations: Abdomen is not rigid. There is no mass or pulsatile mass. Tenderness: There is no abdominal tenderness. There is no guarding or rebound. Negative signs include Arboleda's sign and McBurney's sign. Genitourinary: Labia: Right: No rash or lesion. Left: No rash or lesion. Vagina: Normal. Cervix: Normal. Uterus: Normal. Neurological: Mental Status: She is alert and oriented to person, place, and time. Psychiatric: Mood and Affect: Affect normal. ASSESSMENT/PLAN: 1. Urinary frequency - ICD9: 788.41, ICD10: R35.0 (primary diagnosis) acute - Send urine for culture will treat if positive, no antibiotics at visit. - Urine dip negative - UA DIP, URINE (POC) - URINE CULTURE 2. Pelvic pain - ICD9: [id number], ICD10: R10.2 - Will send vaginal cultures, and call with results. - BACTERIAL VAGINOSIS AMPLIFICATION - RICARDO / TRICHOMONAS AMPLIFICATION Diagnosis and treatment plan were discussed and questions were answered to the patient's satisfaction. Pt acknowledged understanding of concepts and follow up plan. Specific signs and symptoms that would indicate the need for higher level of care were discussed in detail warranting prompt ER evaluation. Nicki Philip APRN.WEATHERSTRIP MACHINE OPERATOR [facility] 08-08-2022 Note HNO ID: [id number] Author: Simran Petty APRN.WEATHERSTRIP MACHINE OPERATOR Service: ? Author Type: Nurse Practitioner Type: Progress Notes Filed: 08/08/2022 2:44 PM Note Text: 08/08/2022 Patient presents with: Behavioral Problem Numbness: Started in right hip and leg, was told to let provider know if getting worse. Now having increased right hip and leg numbness and having numbness to whitley area and right arm SUBJECTIVE: This is a 36 year old that is here today for Above Complaints. Aunt thinks she has ADHD. Patient reports she feels like she can not do anything. Example given by patient is she knows she needs to do housework but instead play on her phone. Feels like she is gaining weight however she reports she has not been very active. She reports she doesn't feel depressed and in fact she reports she feel happy. Attends counseling sporadically and takes her Lexapro as prescribed. No hx of ADHD diagnosed. Denies SI, HI or insomnia TODD: 13 PHQ9: 9 Report has a hx of back pain which radiates into left hip. Has had numbness and tingling to right leg but feel it may be increasing. Reports whitley area feels numb and tingling at times. Also thinks her right arm feel a little numb and tingling. Reports she is supposed to have an MRI on her back but she hasn't scheduled this yet. Denies recent or past back injury or surgery, headaches, visual changes, extremity weakness, slurred speech, facial drooping, confusion, urinary/bowel incontinence or inability PAST MEDICAL HISTORY Diagnosis Date Allergic rhinitis due to animal hair and dander 12/04/2018 History of substance abuse ([facility]) Plantar fasciitis 12/04/2018 ALLERGIES Nicotine, Cats, Dogs, Grass Pollen, and Molds Extract MEDICATIONS Current Outpatient Medications Medication Sig omeprazole (PRILOSEC) 20 mg capsule Take 1 capsule by mouth daily before breakfast. 1/2 hr before meal. escitalopram oxalate (LEXAPRO) 20 mg tablet Take 1 tablet by mouth once daily. cholecalciferol, Vitamin D3, (VITAMIN D3) 1,250 mcg (50,000 unit) cap capsule Take 1 capsule by mouth one time a week. capsaicin (ZOSTRIX) 0.025 % cream Apply to affected area three times daily. gabapentin (NEURONTIN) 800 mg tablet Take 1 tablet by mouth three times daily for 30 days. lidocaine-hydrocortisone 3-0.5 % crea Apply to affected area three times daily as needed. clobetasol (TEMOVATE) 0.05 % cream Apply to affected area twice daily. No current facility-administered medications for this visit. Medications and allergies reviewed by this provider. SOCIAL HISTORY Social History Tobacco Use Smoking status: Every Day Packs/day: 1.00 Years: 17.00 Pack years: 17.00 Types: Cigarettes Smokeless tobacco: Never Vaping Use Vaping Use: Never used Substance Use Topics Alcohol use: Yes Comment: occasional Drug use: Not Currently Types: Amphetamines, Crystal Meth, Heroin Comment: none since 06/2015 REVIEW OF SYSTEMS All other reviewed and negative other than HPI. OBJECTIVE: BP 114/70 Pulse 85 Resp 18 Wt 122.6 kg (270 lb 3.2 oz) LMP 01/31/2021 SpO2 98% BMI 42.32 kg/m? . Vital signs reviewed by this provider. APPEARANCE Well appearing, alert, in no acute distress, well-hydrated, well nourished. and Obese EYES PERRLA, conjunctiva and sclera normal. EARS External ears normal, canals clear NECK Supple, no adenopathy; thyroid symmetric, normal size, no bruits HEART RRR with normal S1 and S2, no murmurs, no gallops, no JVD appreciated LUNG clear to auscultation. No wheezes, rhonchi or rales BACK: no pain to palpation, negative SLR test, slight dec extension, slight dec. flexion EXTREMITIES Extremities normal, No deformities, No skin discoloration, and No edema NEURO Awake, alert and oriented x 3, Cranial nerves II-XII grossly intact, Reflexes symmetrical, Normal gait, No involuntary motions., and negative findings: mental status intact, gait, including heel, toe, and tandem walking normal, Romberg negative, muscle tone normal, muscle strength normal, rapid alternating movements normal, finger to nose normal, sensation to light touch and pinprick normal, reflexes normal and symmetric, plantar response downgoing bilaterally SKIN Skin color, texture, turgor normal, no suspicious rashes or lesions to exposed skin PSYCH: Posture and motor behavior: normal posture and motor behavior Dress, grooming, personal hygiene: normal dress and grooming Facial expression: good eye contact Speech: normal speech Mood: cheerful Coherency and relevance of thought: normal thought processes Memory: normal memory HEPATITIS B(1 of 3 - 3-dose series) Never done PNEUMOCOCCAL(1 - PCV) Never done HEPATITIS C SCREENING Never done HIV SCREENING Never done DTAP,TDAP,TD(1 - Tdap) Never done PAP TESTING Never done HPV TESTING Never done COVID-19 VACCINE(3 - Booster for Moderna series) due on 06/22/2020 INFLUENZA(Season Ended) due on 11/09/2022 ALEJANDRO (more content not included)... [facility] 08-08-2022 History of Present illness Narrative 08/08/2022 Patient presents with: Behavioral Problem Numbness: Started in right hip and leg, was told to let provider know if getting worse. Now having increased right hip and leg numbness and having numbness to whitley area and right arm SUBJECTIVE: This is a 36 year old that is here today for Above Complaints. Aunt thinks she has ADHD. Patient reports she feels like she can not do anything. Example given by patient is she knows she needs to do housework but instead play on her phone. Feels like she is gaining weight however she reports she has not been very active. She reports she doesn't feel depressed and in fact she reports she feel happy. Attends counseling sporadically and takes her Lexapro as prescribed. No hx of ADHD diagnosed. Denies SI, HI or insomnia TODD: 13 PHQ9: 9 Report has a hx of back pain which radiates into left hip. Has had numbness and tingling to right leg but feel it may be increasing. Reports whitley area feels numb and tingling at times. Also thinks her right arm feel a little numb and tingling. Reports she is supposed to have an MRI on her back but she hasn't scheduled this yet. Denies recent or past back injury or surgery, headaches, visual changes, extremity weakness, slurred speech, facial drooping, confusion, urinary/bowel incontinence or inability PAST MEDICAL HISTORY Diagnosis Date Allergic rhinitis due to animal hair and dander 12/04/2018 History of substance abuse ([facility]) Plantar fasciitis 12/04/2018 ALLERGIES Nicotine, Cats, Dogs, Grass Pollen, and Molds Extract MEDICATIONS Current Outpatient Medications Medication Sig omeprazole (PRILOSEC) 20 mg capsule Take 1 capsule by mouth daily before breakfast. 1/2 hr before meal. escitalopram oxalate (LEXAPRO) 20 mg tablet Take 1 tablet by mouth once daily. cholecalciferol, Vitamin D3, (VITAMIN D3) 1,250 mcg (50,000 unit) cap capsule Take 1 capsule by mouth one time a week. capsaicin (ZOSTRIX) 0.025 % cream Apply to affected area three times daily. gabapentin (NEURONTIN) 800 mg tablet Take 1 tablet by mouth three times daily for 30 days. lidocaine-hydrocortisone 3-0.5 % crea Apply to affected area three times daily as needed. clobetasol (TEMOVATE) 0.05 % cream Apply to affected area twice daily. No current facility-administered medications for this visit. Medications and allergies reviewed by this provider. SOCIAL HISTORY Social History Tobacco Use Smoking status: Every Day Packs/day: 1.00 Years: 17.00 Pack years: 17.00 Types: Cigarettes Smokeless tobacco: Never Vaping Use Vaping Use: Never used Substance Use Topics Alcohol use: Yes Comment: occasional Drug use: Not Currently Types: Amphetamines, Crystal Meth, Heroin Comment: none since 06/2015 REVIEW OF SYSTEMS All other reviewed and negative other than HPI. OBJECTIVE: BP 114/70 Pulse 85 Resp 18 Wt 122.6 kg (270 lb 3.2 oz) LMP 01/31/2021 SpO2 98% BMI 42.32 kg/m . Vital signs reviewed by this provider. APPEARANCE Well appearing, alert, in no acute distress, well-hydrated, well nourished. and Obese EYES PERRLA, conjunctiva and sclera normal. EARS External ears normal, canals clear NECK Supple, no adenopathy; thyroid symmetric, normal size, no bruits HEART RRR with normal S1 and S2, no murmurs, no gallops, no JVD appreciated LUNG clear to auscultation. No wheezes, rhonchi or rales BACK: no pain to palpation, negative SLR test, slight dec extension, slight dec. flexion EXTREMITIES Extremities normal, No deformities, No skin discoloration, and No edema NEURO Awake, alert and oriented x 3, Cranial nerves II-XII grossly intact, Reflexes symmetrical, Normal gait, No involuntary motions., and negative findings: mental status intact, gait, including heel, toe, and tandem walking normal, Romberg negative, muscle tone normal, muscle strength normal, rapid alternating movements normal, finger to nose normal, sensation to light touch and pinprick normal, reflexes normal and symmetric, plantar response downgoing bilaterally SKIN Skin color, texture, turgor normal, no suspicious rashes or lesions to exposed skin PSYCH: Posture and motor behavior: normal posture and motor behavior Dress, grooming, personal hygiene: normal dress and grooming Facial expression: good eye contact Speech: normal speech Mood: cheerful Coherency and relevance of thought: normal thought processes Memory: normal memory HEPATITIS B(1 of 3 - 3-dose series) Never done PNEUMOCOCCAL(1 - PCV) Never done HEPATITIS C SCREENING Never done HIV SCREENING Never done DTAP,TDAP,TD(1 - Tdap) Never done PAP TESTING Never done HPV TESTING Never done COVID-19 VACCINE(3 - Booster for Moderna series) due on 06/22/2020 INFLUENZA(Season Ended) due on 11/09/2022 ASSESSMENT/PLAN: 1. Depression with anxiety - ICD9: 300.4, ICD10: F41.8 (primary diagnosis) - recommend counseling - BUPROPION XL 150 MG TAB- common side effects discussed, verbalizes understanding - follow-up in one month with PCP team 2. Lumbar back pain with radiculopathy affecting right lower extremity - ICD9: 724.4, ICD10: M54.16 - no red flag exam findings - red flag symptoms discussed, verbalizes understanding - recommend patient schedule MRI as ordered by PCP - follow-up with PCP care team to ER with red flag symptoms Simran Petty APRN.WEATHERSTRIP MACHINE OPERATOR Prescription instructions reviewed with patient as applicable. Patient advised if symptoms do not improve or if symptoms worsen sooner, to contact their primary care physician. Potential red flag symptoms discussed with the patient. Reviewed appropriate action plan to take if red flag symptoms occur. Patient agreeable to treatment plan. I spent a total of 30 minutes on the date of the service which included preparing to see the patient, [id number] patient care, completing clinical documentation, obtaining and/or reviewing separately obtained history, performing a medically appropriate examination, counseling and educating the patient/family/caregiver, and ordering medications, tests, or procedures. documented in this encounter [facility] 06-21-2022 Miscellaneous Notes Patient phones requesting refills as follows: Requested Prescriptions Pending Prescriptions Disp Refills omeprazole (PRILOSEC) 20 mg capsule 30 capsule 2 Sig: Take 1 capsule by mouth daily before breakfast. 1/2 hr before meal. escitalopram oxalate (LEXAPRO) 20 mg tablet 30 tablet 2 Sig: Take 1 tablet by mouth once daily. NAZIA-05/30/22 Labs-06/11/22 NOV-none med filled 03/14/22 Please review and advise. Elin Baker LPN documented in this encounter [facility] 06-13-2022 Miscellaneous Notes Pt was notified of results & voiced understanding. Pt states she was not on her period when she had labs drawn, she is in between periods. Also pt reports she was taking prednisone for the hand rash & it started to clear the rash up well then as soon as she finished the steriods the rash returned. Appt with derm is August. Please advise. Alba Forrest LPN Please let Ni know that I received her labs results. Her vitamin D level is too low. I'm sending in a weekly vitamin D3 supplement for her to begin taking. Her WBC count is just a little elevated. This is likely r/t some type of virus, but overall not concerning. Her Hgb level is a little low. Was she on her period or just completed her period when this lab was drawn? I'd also like her to have iron labs drawn as this can be the cause of a low Hgb. The following approved medication requests have been transmitted electronically. Requested Prescriptions Signed Prescriptions Disp Refills cholecalciferol, Vitamin D3, (VITAMIN D3) 1,250 mcg (50,000 unit) cap capsule 12 capsule 3 Sig: Take 1 capsule by mouth one time a week. Authorizing Provider: MATTHEW LINDSEY APRN.CNP documented in this encounter [facility] 05-30-2022 Miscellaneous Notes Noted, thank you for calling. Matthew Lindsey APRN.ANDREINA Spoke with [facility] and [facility] location has openings all beginning of June. Advised pt to contact office to schedule a sooner appt. Pt informed. Faxing over pathology report and will place on RS desk when received. Rocio Worley Please contact [facility], patient is established there. Please obtain result of scraping or biopsy that was done recently. I do have a visit report but no pathology report. Also, she needs to get back in to see them due to her rash worsening and sx worsening. She called and they stated the soonest she can get in is in August. Can we please see if they are able to move this appointment up? She is willing to travel to any of their locations. Matthew Lindsey APRN.CNP documented in this encounter [facility] 05-30-2022 Note HNO ID: [id number] Author: Matthew Lindsey APRN.CNP Service: ? Author Type: Nurse Practitioner Type: Progress Notes Filed: 05/30/2022 1:41 PM Note Text: Chief Complaint Patient presents with: LESION, SKIN: Right hand, dry itchy patch since DEC 2021- scheduled with Derm in August HPI Ni Kelley is a 36 year old female who presents here today for Above Complaints. Today: Has patch on right hand that is itchy, stinging, can be painful. Sometimes will feel like whole hand is on fire. Is getting bigger Went to [facility], took a culture, told her to keep doing what she was doing, no changes. Has rescheduled an appt with Dermatology for August. Has lately just been putting AANDD ointment on it. 4.6cm x 4.8cm, red, scaly, no drainage Past medical history, appointments, medications, allergies reviewed. Previous Medical History PAST MEDICAL HISTORY Diagnosis Date Allergic rhinitis due to animal hair and dander 12/04/2018 History of substance abuse (HCC) Plantar fasciitis 12/04/2018 Previous Surgical History PAST SURGICAL HISTORY Procedure Laterality Date COLONOSCOPY GEN ANES 01/13/2021 EGD 01/13/2021 PAST SURGICAL HISTORY OF 2010 genital vaginal hematoma Family History FAMILY HISTORY Problem Relation Age of Onset Diabetes Mother Hypertension Father Hyperlipidemia Father Anxiety disorder Father Depression Father Patient Allergies ALLERGIES Allergen Reactions Nicotine Rash Nicotine patch-severe rash with the adhesive Cats Intolerance Dogs Intolerance Grass Pollen Intolerance Molds Extract Intolerance Current Medications Current Outpatient Medications on File Prior to Visit Medication Sig gabapentin (NEURONTIN) 800 mg tablet Take 1 tablet by mouth three times daily for 30 days. omeprazole (PRILOSEC) 20 mg capsule Take 1 capsule by mouth daily before breakfast. 1/2 hr before meal. escitalopram oxalate (LEXAPRO) 20 mg tablet Take 1 tablet by mouth once daily. lidocaine-hydrocortisone 3-0.5 % crea Apply to affected area three times daily as needed. clobetasol (TEMOVATE) 0.05 % cream Apply to affected area twice daily. No current facility-administered medications on file prior to visit. Social History Social History Tobacco Use Smoking status: Every Day Packs/day: 1.00 Years: 17.00 Pack years: 17.00 Types: Cigarettes Smokeless tobacco: Never Vaping Use Vaping Use: Never used Substance Use Topics Alcohol use: Yes Comment: occasional Drug use: Not Currently Types: Amphetamines, Crystal Meth, Heroin Comment: none since 06/2015 Review of Symptoms REVIEW OF SYSTEMS See HPI, otherwise negative EXAM: BP 122/84 (BP Site: Left Arm, BP Position: Sitting, BP Cuff Size: Regular Adult) Pulse 79 Resp 16 Wt 122.1 kg (269 lb 3.2 oz) LMP 01/31/2021 SpO2 99% BMI 42.16 kg/m? General Appearance: Well appearing, alert, in no acute distress, well-hydrated, well nourished.. Skin: right palm lesion 4.6cm x 4.8cm, red, scaly, no drainage. Health Maintenance List HEPATITIS B(1 of 3 - 3-dose series) Never done PNEUMOCOCCAL(1 - PCV) Never done HEPATITIS C SCREENING Never done HIV SCREENING Never done DTAP,TDAP,TD(1 - Tdap) Never done PAP TESTING Never done HPV TESTING Never done COVID-19 VACCINE(3 - Booster for Moderna series) due on 06/22/2020 INFLUENZA(1) due on 11/09/2021 Data reviewed Previous records, office notes ASSESSMENT/PLAN: 1. Rash of hand - ICD9: 782.1, ICD10: R21 Capsaicin tid to area for itching and burning. Prednisone taper x9 days. Will contact dermatology for lab testing result and attempt to move appointment sooner than August. - PREDNISONE 10 MG TABLET - CAPSAICIN 0.025 % TOPICAL CREAM Matthew Lindsey APRN.[facility] 05-30-2022 History of Present illness Narrative Chief Complaint Patient presents with: LESION, SKIN: Right hand, dry itchy patch since DEC 2021- scheduled with Derm in August HPI Ni Kelley is a 36 year old female who presents here today for Above Complaints. Today: Has patch on right hand that is itchy, stinging, can be painful. Sometimes will feel like whole hand is on fire. Is getting bigger Went to [facility], took a culture, told her to keep doing what she was doing, no changes. Has rescheduled an appt with Dermatology for August. Has lately just been putting A&D ointment on it. 4.6cm x 4.8cm, red, scaly, no drainage Past medical history, appointments, medications, allergies reviewed. Previous Medical History PAST MEDICAL HISTORY Diagnosis Date Allergic rhinitis due to animal hair and dander 12/04/2018 History of substance abuse (HCC) Plantar fasciitis 12/04/2018 Previous Surgical History PAST SURGICAL HISTORY Procedure Laterality Date COLONOSCOPY GEN ANES 01/13/2021 EGD 01/13/2021 PAST SURGICAL HISTORY OF 2010 genital vaginal hematoma Family History FAMILY HISTORY Problem Relation Age of Onset Diabetes Mother Hypertension Father Hyperlipidemia Father Anxiety disorder Father Depression Father Patient Allergies ALLERGIES Allergen Reactions Nicotine Rash Nicotine patch-severe rash with the adhesive Cats Intolerance Dogs Intolerance Grass Pollen Intolerance Molds Extract Intolerance Current Medications Current Outpatient Medications on File Prior to Visit Medication Sig gabapentin (NEURONTIN) 800 mg tablet Take 1 tablet by mouth three times daily for 30 days. omeprazole (PRILOSEC) 20 mg capsule Take 1 capsule by mouth daily before breakfast. 1/2 hr before meal. escitalopram oxalate (LEXAPRO) 20 mg tablet Take 1 tablet by mouth once daily. lidocaine-hydrocortisone 3-0.5 % crea Apply to affected area three times daily as needed. clobetasol (TEMOVATE) 0.05 % cream Apply to affected area twice daily. No current facility-administered medications on file prior to visit. Social History Social History Tobacco Use Smoking status: Every Day Packs/day: 1.00 Years: 17.00 Pack years: 17.00 Types: Cigarettes Smokeless tobacco: Never Vaping Use Vaping Use: Never used Substance Use Topics Alcohol use: Yes Comment: occasional Drug use: Not Currently Types: Amphetamines, Crystal Meth, Heroin Comment: none since 06/2015 Review of Symptoms REVIEW OF SYSTEMS See HPI, otherwise negative EXAM: BP 122/84 (BP Site: Left Arm, BP Position: Sitting, BP Cuff Size: Regular Adult) Pulse 79 Resp 16 Wt 122.1 kg (269 lb 3.2 oz) LMP 01/31/2021 SpO2 99% BMI 42.16 kg/m General Appearance: Well appearing, alert, in no acute distress, well-hydrated, well nourished.. Skin: right palm lesion 4.6cm x 4.8cm, red, scaly, no drainage. Health Maintenance List HEPATITIS B(1 of 3 - 3-dose series) Never done PNEUMOCOCCAL(1 - PCV) Never done HEPATITIS C SCREENING Never done HIV SCREENING Never done DTAP,TDAP,TD(1 - Tdap) Never done PAP TESTING Never done HPV TESTING Never done COVID-19 VACCINE(3 - Booster for Moderna series) due on 06/22/2020 INFLUENZA(1) due on 11/09/2021 Data reviewed Previous records, office notes ASSESSMENT/PLAN: 1. Rash of hand - ICD9: 782.1, ICD10: R21 Capsaicin tid to area for itching and burning. Prednisone taper x9 days. Will contact dermatology for lab testing result and attempt to move appointment sooner than August. 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 Author Type: Nurse Practitioner Type: Progress Notes Filed: 05/03/2022 1:16 PM Note Text: Chief Complaint Patient presents with: Sciatica: Pain and numbness- Lower back into right leg, pain in left shoulder and neck MIRIAN Kelley is a 36 year old female who presents here today for Above Complaints.. Today: Flare up of back pain that started last week when was pushing a cart and back started hurting very bad. Didn't do anything strenuous, wondering if she twisted wrong. Gabapentin is scheduled for tid but took qid for the last 6-7 days. Has been told by solar energy specialist that she needs to do PT again. Previously has helped some, but not sure that going through the program again is actually going to help anything. Past medical history, appointments, medications, allergies reviewed. Previous Medical History PAST MEDICAL HISTORY Diagnosis Date Allergic rhinitis due to animal hair and dander 12/04/2018 History of substance abuse (HCC) Plantar fasciitis 12/04/2018 Previous Surgical History PAST SURGICAL HISTORY Procedure Laterality Date COLONOSCOPY GEN ANES 01/13/2021 EGD 01/13/2021 PAST SURGICAL HISTORY OF 2010 genital vaginal hematoma Family History FAMILY HISTORY Problem Relation Age of Onset Diabetes Mother Hypertension Father Hyperlipidemia Father Anxiety disorder Father Depression Father Patient Allergies ALLERGIES Allergen Reactions Nicotine Rash Nicotine patch-severe rash with the adhesive Cats Intolerance Dogs Intolerance Grass Pollen Intolerance Molds Extract Intolerance Current Medications Current Outpatient Medications on File Prior to Visit Medication Sig gabapentin (NEURONTIN) 600 mg tablet Take 1 tablet by mouth three times daily for 60 days. escitalopram oxalate (LEXAPRO) 20 mg tablet Take 1 tablet by mouth once daily. omeprazole (PRILOSEC) 20 mg capsule Take 1 capsule by mouth daily before breakfast. 1/2 hr before meal. lidocaine-hydrocortisone 3-0.5 % crea Apply to affected area three times daily as needed. clobetasol (TEMOVATE) 0.05 % cream Apply to affected area twice daily. tiZANidine (ZANAFLEX) 4 mg tablet Take 1 tablet by mouth every 8 hours as needed. escitalopram oxalate (LEXAPRO) 20 mg tablet Take 1 tablet by mouth once daily. escitalopram oxalate (LEXAPRO) 20 mg tablet Take 1 tablet by mouth once daily. imiquimod (ALDARA) 5 % cream Apply topically to rash areas three times daily, for 5 consecutive days per week, for 4 weeks. (Patient not taking: Reported on 01/24/2022) No current facility-administered medications on file prior to visit. Social History Social History Tobacco Use Smoking status: Every Day Packs/day: 1.00 Years: 17.00 Pack years: 17.00 Types: Cigarettes Smokeless tobacco: Never Vaping Use Vaping Use: Never used Substance Use Topics Alcohol use: Yes Comment: occasional Drug use: Not Currently Types: Amphetamines, Crystal Meth, Heroin Comment: none since 06/2015 Review of Symptoms REVIEW OF SYSTEMS See HPI, otherwise negative EXAM: BP 126/90 (BP Site: Left Arm, BP Position: Sitting, BP Cuff Size: Large Adult) Pulse 69 Resp 16 Wt 122.4 kg (269 lb 12.8 oz) LMP 01/31/2021 SpO2 98% BMI 42.26 kg/m? General Appearance: Well appearing, alert, in no acute distress, well-hydrated, well nourished. and Morbidly obese. Back:no pain to palpation of vertebrae, good flexion and extension, slightly decreased overall range of motion, motor and sensory appear to be normal, + muscle tenderness Lungs: Lungs clear to auscultation. No wheezing, rhonchi, rales.. Heart: RRR without murmur, gallop, or rubs. No ectopy. Health Maintenance List HEPATITIS B(1 of 3 - 3-dose series) Never done PNEUMOCOCCAL(1 - PCV) Never done HEPATITIS C SCREENING Never done HIV SCREENING Never done DTAP,TDAP,TD(1 - Tdap) Never done PAP TESTING Never done HPV TESTING Never done COVID-19 VACCINE(3 - Booster for Moderna series) due on 06/22/2020 INFLUENZA(1) due on 11/09/2021 Data reviewed Previous records, office notes ASSESSMENT/PLAN: 1. Acute right-sided low back pain with right-sided sciatica - ICD9: 724.2, 724.3, ICD10: M54.41 (primary diagnosis) Acute exacerbation of chronic condition. Has utilized therapies including NSAIDS, skeletal muscle relaxants, ice, heat, rest, PT, all of which have helped somewhat in the past but have never completely taken away the pain, and now this has acutely been exacerbated. Given results of previous MRI from 2019 and the persistent and worsening pain, repeat MRI is necessary. Increase gabapentin to 800mg tid. Kenalog IM today. Continue supportive care. - MRI LUMBAR SPINE WO IVCON - GABAPENTIN 800 MG TABLET - TRIAMCINOLONE ACETONIDE 40 MG/ML SUSPENSION FOR INJECTION 2. Spinal stenosis of lumbar region, unspecified whether neurogenic claudication pres (more content not included)... [facility] 05-03-2022 Miscellaneous Notes Request faxed Roico Worley [facility] and obtain patient's recent records for review. Matthew Lindsey APRN.CNP documented in this encounter [facility] 05-03-2022 History of Present illness Narrative Chief Complaint Patient presents with: Sciatica: Pain and numbness- Lower back into right leg, pain in left shoulder and neck HPI Ni Kelley is a 36 year old female who presents here today for Above Complaints.. Today: Flare up of back pain that started last week when was pushing a cart and back started hurting very bad. Didn't do anything strenuous, wondering if she twisted wrong. Gabapentin is scheduled for tid but took qid for the last 6-7 days. Has been told by solar energy specialist that she needs to do PT again. Previously has helped some, but not sure that going through the program again is actually going to help anything. Past medical history, appointments, medications, allergies reviewed. Previous Medical History PAST MEDICAL HISTORY Diagnosis Date Allergic rhinitis due to animal hair and dander 12/04/2018 History of substance abuse (HCC) Plantar fasciitis 12/04/2018 Previous Surgical History PAST SURGICAL HISTORY Procedure Laterality Date COLONOSCOPY GEN ANES 01/13/2021 EGD 01/13/2021 PAST SURGICAL HISTORY OF 2011 genital vaginal hematoma Family History FAMILY HISTORY Problem Relation Age of Onset Diabetes Mother Hypertension Father Hyperlipidemia Father Anxiety disorder Father Depression Father Patient Allergies ALLERGIES Allergen Reactions Nicotine Rash Nicotine patch-severe rash with the adhesive Cats Intolerance Dogs Intolerance Grass Pollen Intolerance Molds Extract Intolerance Current Medications Current Outpatient Medications on File Prior to Visit Medication Sig gabapentin (NEURONTIN) 600 mg tablet Take 1 tablet by mouth three times daily for 60 days. escitalopram oxalate (LEXAPRO) 20 mg tablet Take 1 tablet by mouth once daily. omeprazole (PRILOSEC) 20 mg capsule Take 1 capsule by mouth daily before breakfast. 1/2 hr before meal. lidocaine-hydrocortisone 3-0.5 % crea Apply to affected area three times daily as needed. clobetasol (TEMOVATE) 0.05 % cream Apply to affected area twice daily. tiZANidine (ZANAFLEX) 4 mg tablet Take 1 tablet by mouth every 8 hours as needed. escitalopram oxalate (LEXAPRO) 20 mg tablet Take 1 tablet by mouth once daily. escitalopram oxalate (LEXAPRO) 20 mg tablet Take 1 tablet by mouth once daily. imiquimod (ALDARA) 5 % cream Apply topically to rash areas three times daily, for 5 consecutive days per week, for 4 weeks. (Patient not taking: Reported on 01/24/2022) No current facility-administered medications on file prior to visit. Social History Social History Tobacco Use Smoking status: Every Day Packs/day: 1.00 Years: 17.00 Pack years: 17.00 Types: Cigarettes Smokeless tobacco: Never Vaping Use Vaping Use: Never used Substance Use Topics Alcohol use: Yes Comment: occasional Drug use: Not Currently Types: Amphetamines, Crystal Meth, Heroin Comment: none since 06/2015 Review of Symptoms REVIEW OF SYSTEMS See HPI, otherwise negative EXAM: BP 126/90 (BP Site: Left Arm, BP Position: Sitting, BP Cuff Size: Large Adult) Pulse 69 Resp 16 Wt 122.4 kg (269 lb 12.8 oz) LMP 01/31/2021 SpO2 98% BMI 42.26 kg/m General Appearance: Well appearing, alert, in no acute distress, well-hydrated, well nourished. and Morbidly obese. Back:no pain to palpation of vertebrae, good flexion and extension, slightly decreased overall range of motion, motor and sensory appear to be normal, + muscle tenderness Lungs: Lungs clear to auscultation. No wheezing, rhonchi, rales.. Heart: RRR without murmur, gallop, or rubs. No ectopy. Health Maintenance List HEPATITIS B(1 of 3 - 3-dose series) Never done PNEUMOCOCCAL(1 - PCV) Never done HEPATITIS C SCREENING Never done HIV SCREENING Never done DTAP,TDAP,TD(1 - Tdap) Never done PAP TESTING Never done HPV TESTING Never done COVID-19 VACCINE(3 - Booster for Moderna series) due on 06/22/2020 INFLUENZA(1) due on 11/09/2021 Data reviewed Previous records, office notes ASSESSMENT/PLAN: 1. Acute right-sided low back pain with right-sided sciatica - ICD9: 724.2, 724.3, ICD10: M54.41 (primary diagnosis) Acute exacerbation of chronic condition. Has utilized therapies including NSAIDS, skeletal muscle relaxants, ice, heat, rest, PT, all of which have helped somewhat in the past but have never completely taken away the pain, and now this has acutely been exacerbated. Given results of previous MRI from 2020 and the persistent and worsening pain, repeat MRI is necessary. Increase gabapentin to 800mg tid. Kenalog IM today. Continue supportive care. - MRI LUMBAR SPINE WO IVCON - GABAPENTIN 800 MG TABLET - TRIAMCINOLONE ACETONIDE 40 MG/ML SUSPENSION FOR INJECTION 2. Spinal stenosis of lumbar region, unspecified whether neurogenic claudication present - ICD9: 724.02, ICD10: M48.061 Acute exacerbation of chronic condition. Has utilized therapies including NSAIDS, skeletal muscle relaxants, ice, heat, rest, PT, all of which have helped somewhat in the past but have never completely taken away the pain, and now this has acutely been exacerbated. Given results of previous MRI from 2019 and the persistent and worsening pain, repeat MRI is necessary. Increase gabapentin to 800mg tid. Kenalog IM today. Continue supportive care. - MRI LUMBAR SPINE WO IVCON - GABAPENTIN 800 MG TABLET - TRIAMCINOLONE ACETONIDE 40 MG/ML SUSPENSION FOR INJECTION 3. Lumbar back pain with radiculopathy affecting right lower extremity - ICD9: 724.4, ICD10: M54.16 Acute exacerbation of chronic condition. Has utilized therapies including NSAIDS, skeletal muscle relaxants, ice, heat, rest, PT, all of which have helped somewhat in the past but have never completely taken away the pain, and now this has acutely been exacerbated. Given results of previous MRI from 2020 and the persistent and worsening pain, repeat MRI is necessary. Increase gabapentin to 800mg tid. Kenalog IM today. Continue supportive care. - MRI LUMBAR SPINE WO IVCON - GABAPENTIN 800 MG TABLET - TRIAMCINOLONE ACETONIDE 40 MG/ML SUSPENSION FOR INJECTION 4. Foraminal stenosis of lumbar region - ICD9: 724.02, ICD10: M48.061 Acute exacerbation of chronic condition. Has utilized therapies including NSAIDS, skeletal muscle relaxants, ice, heat, rest, PT, all of which have helped somewhat in the past but have never completely taken away the pain, and now this has acutely been exacerbated. Given results of previous MRI from 2020 and the persistent and worsening pain, repeat MRI is necessary. Increase gabapentin to 800mg tid. Kenalog IM today. Continue supportive care. - MRI LUMBAR SPINE WO IVCON - GABAPENTIN 800 MG TABLET - TRIAMCINOLONE ACETONIDE 40 MG/ML SUSPENSION FOR INJECTION 5. Lumbar nerve root impingement - ICD9: 724.4, ICD10: M54.16 Acute exacerbation of chronic condition. Has utilized therapies including NSAIDS, skeletal muscle relaxants, ice, heat, rest, PT, all of which have helped somewhat in the past but have never completely taken away the pain, and now this has acutely been exacerbated. Given results of previous MRI from 2020 and the persistent and worsening pain, repeat MRI is necessary. Increase gabapentin to 800mg tid. Kenalog IM today. Continue supportive care. - MRI LUMBAR SPINE WO IVCON - GABAPENTIN 800 MG TABLET - TRIAMCINOLONE ACETONIDE 40 MG/ML SUSPENSION FOR INJECTION 6. Screening for thyroid disorder - ICD9: V77.0, ICD10: Z13.29 - COMP METABOLIC PANEL 7. Screening for diabetes mellitus - ICD9: V77.1, ICD10: Z13.1 - CBC - COMP METABOLIC PANEL - HGB A1C 8. Encounter for vitamin deficiency screening - ICD9: V77.99, ICD10: Z13.21 - VITAMIN D 25 HYDROXY - VITAMIN B12 BLOOD 9. Screening for lipid disorders - ICD9: V77.91, ICD10: Z13.220 - LIPID PANEL BASIC Matthew Lindsey APRN.CNP PDMP website checked and validated. All prescriptions have been APPROPRIATELY filled. No suspicious activity was identified. 05/03/2022 by Matthew Lindsey CNP. documented in this encounter [facility] 04-11-2022 Miscellaneous Notes Images from the original note were not included. Provider: Malvin Llanos PA-C patient requesting refill via [facility] . Please E-Scribe Last OV: 11-09-21 with Malvin Llanos PA-C Future OV: N/A Last prescribed: 02-07-22 Anticonvulsant Refill Checklist Passed 04/11/2022 09:32 AM CBC within the last 12 months Lytes within the last 12 months LFT within the last 12 months Serum Creatinine within the last 12 month Visit with provider within the last 12 months Requested Prescriptions Pending Prescriptions Disp Refills gabapentin (NEURONTIN) 600 mg tablet 90 tablet 1 Sig: Take 1 tablet by mouth three times daily for 60 days. Request sent to provider to review LINDA Culp, RN April 11, 2022 9:34 AM documented in this encounter [facility] 03-15-2022 Miscellaneous Notes The following approved medication requests have been transmitted electronically. Requested Prescriptions Refused Prescriptions Disp Refills escitalopram oxalate (LEXAPRO) 20 mg tablet 30 tablet 2 Sig: Take 1 tablet by mouth once daily. Refused By: MADDIE DE LOS SANTOS Reason for Refusal: Request already responded to by other means (for example, phone, fax) Maddie De Los Santos APRN.WEATHERSTRIP MACHINE OPERATOR Nazia--01/24/22 Nov--nothing scheduled Last refill--12/13/21 30 with 2 refills Last labs--02/06/22 documented in this encounter [facility] 03-14-2022 Miscellaneous Notes Nazia--01/24/22 Nov--nothing schediled Last refill--12/13/21 30 with 2 refills Last labs--02/06/22 documented in this encounter [facility] 03-14-2022 Miscellaneous Notes Nazia--03/26/21 Nov--nothing scheduled Last refill--12/13/21 30 with 2 refills Last labs--02/06/22 documented in this encounter [facility] 03-13-2022 Miscellaneous Notes Patient phones requesting refills as follows: Requested Prescriptions Pending Prescriptions Disp Refills omeprazole (PRILOSEC) 20 mg capsule 30 capsule 2 Sig: Take 1 capsule by mouth daily before breakfast. 1/2 hr before meal. escitalopram oxalate (LEXAPRO) 20 mg tablet 30 tablet 2 Sig: Take 1 tablet by mouth once daily. NAZIA-01/24/22 Labs-02/06/22 NOV-none med filled 12/13/21 Please review and advise. Elin Baker LPN documented in this encounter [facility] 02-07-2022 Miscellaneous Notes Images from the original note were not included. Provider: Malvin Llanos PA-C patient requesting refill via [facility] . Please E-Scribe Last OV: 11-09-21 with Malvin Llanos PA-C Future OV: N/A Last prescribed: 12-14-21 Requested Prescriptions Pending Prescriptions Disp Refills gabapentin (NEURONTIN) 600 mg tablet 90 tablet 1 Sig: Take 1 tablet by mouth three times daily for 60 days. Anticonvulsant Refill Checklist Passed 02/07/2022 10:32 AM CBC within the last 12 months Lytes within the last 12 months LFT within the last 12 months Serum Creatinine within the last 12 month Visit with provider within the last 12 months Request sent to provider to review Key Flores RN documented in this encounter [facility] 02-02-2022 Miscellaneous Notes Pt called and is notified of providers message. Pt voices understanding. Roberta Hughes RN The following approved medication requests have been transmitted electronically. Requested Prescriptions Signed Prescriptions Disp Refills lidocaine-hydrocortisone 3-0.5 % crea 28.3 g 1 Sig: Apply to affected area three times daily as needed. Authorizing Provider: MATTHEW LINDSEY APRN.CNP I talked to Jose at [facility] states he has a 3% Lidocaine cream or you can get 4% OTC I cannot find plain lidocaine 2% gel or cream to order. Is the rx he is referring to a combination of lidocaine and another medication? Matthew Lindsey APRN.ANDREINA Spoke with Jose the pharmacist he states he deleted old script needs new script sent for 2% 30 gram tube. That is what they carry. The 2% is fine. Matthew Lindsey APRN.ANDREINA Jose, Pharmacist @ [facility] calling to let provider know they do not have Lidocaine 1% topical gel. They carry 2% and higher. Roberta Kothari RN documented in this encounter [facility] 01-24-2022 Miscellaneous Notes Called and spoke with [facility], they take patient's insurance. Called and notified patient of this, patient voiced understanding. Faxed office notes, face sheet, and referral to [facility]. Key Álvarez RN Please fax dermatology consult to [facility] or [facility], depending on insurance. If unable to see her due to her insurance, please let her know that she will need to schedule within the [facility]. Matthew Lindsey APRN.ANDREINA documented in this encounter [facility] 12-13-2021 Miscellaneous Notes Nazia--08/03/21 Nov--not scheduled Last refill--lexapro 11/24/21 30 with 2 refills Prilosec-- 11/24/21 30 with 2 refills Last labs--;11/09/21 documented in this encounter [facility] 12-13-2021 History of Present illness Narrative Radiology Service Progress Note PATIENT NAME: Ni Kelley DATE OF SERVICE: December 13, 2021 TIME: 4:58 PM PATIENT IDENTITY VERIFICATION COMPLETED USING TWO (2) IDENTIFIERS: Name and Date of confirmed by patient verbally. FALL SCREENING: Has the patient had 2 falls in the last year or 1 fall with injury or currently using an Ambulatory Assistive Device (Walker, Cane, Wheelchair, Crutches, etc.)? No PATIENT GENDER DATA: Female. status: : No status: NO. PATIENT RELEVANT IMPLANT DATA REVIEWED: Yes RADIOLOGY DEPARTMENT: General X-ray: Exam(s) Completed: Spine X-Ray(s): Lumbar AP / LAT / L5-S1 / FLEX-EXT PERIPHERAL IV DATA: Not applicable SIGNED BY: RT Elvira(R) December 13, 2021 4:58 PM documented in this encounter [facility] 11-24-2021 Miscellaneous Notes Patient phones requesting refills as follows: Patient comment: Im completely out Requested Prescriptions Pending Prescriptions Disp Refills omeprazole (PRILOSEC) 20 mg capsule 30 capsule 2 Sig: Take 1 capsule by mouth daily before breakfast. 1/2 hr before meal. escitalopram oxalate (LEXAPRO) 20 mg tablet 30 tablet 2 Sig: Take 1 tablet by mouth once daily. NAZIA-08/03/21 Labs-11/09/21 NOV-none Please review and advise. Elin Baker LPN documented in this encounter [facility] 11-09-2021 History of Present illness Narrative Luiz Llanos PA-C [facility] [address] [id number] Dear Matthew Lindsey APRN.Ni HDZ is a very pleasant 36 year old individual who comes in to the office on 11/09/2021 for follow-up regarding their Lumbar spine. Patient is here alone today. Subjective: Compared to the last visit, symptoms have been worse. Ms. Kelley is here for the lower back pain and right hip. Level of the pain is at 6/10. ROS: Since last visit-patient DENIES fevers, chills, night sweats, unexpected weight loss or gain, paralysis, saddle numbness, loss of coordination. and Since last visit--patient indicates NEW presence of: numbness in right side, bladder control problems, and stumbling, weakness, abdominal pain Current Outpatient Medications Medication Sig Dispense Refill gabapentin (NEURONTIN) 600 mg tablet Take 1 tablet by mouth three times daily for 60 days. 90 tablet 1 omeprazole (PRILOSEC) 20 mg capsule Take 1 capsule by mouth daily before breakfast. 1/2 hr before meal. 30 capsule 2 escitalopram oxalate (LEXAPRO) 20 mg tablet Take 1 tablet by mouth once daily. 30 tablet 2 imiquimod (ALDARA) 5 % cream Apply topically to rash areas three times daily, for 5 consecutive days per week, for 4 weeks. 60 Each 0 tiZANidine (ZANAFLEX) 4 mg tablet Take 1 tablet by mouth every 8 hours as needed. (Patient not taking: Reported on 11/09/2021) 30 tablet 0 No current facility-administered medications for this visit. Exam: Blood pressure 114/69, pulse 65, height 170.2 cm (5' 7 ), weight 118.1 kg (260 lb 6.4 oz), last menstrual period 01/31/2021, SpO2 100 %, unknown if currently . Body mass index is 40.78 kg/m . Station and Gait: favoring the right lower extremity Range of Motion: normal, but occasionally there is sharp pain with motion (unsure of what motion) Motor: Diminished RIGHT dorsiflexor and EHL Sensory: intermittent RIGHT L5 numbness Reflexes: hyporeflexic throughout Pain on Palpation: RIGHT PSIS Moderately positive SLR on the RIGHT Sits to the left, favoring the right Imaging: The following study/studies were reviewed with the patient during the visit: MRI of the lumbar spine and her prior x-rays were reviewed. She has L4-5 disc degeneration and stenosis Assessment/Plan: Encounter Diagnosis ICD-10-CM 1. Lumbar radiculopathy M54.16 CONSULT TO PHYSICAL THERAPY XR LUMBAR MOTION 4V AP/LAT/ FLEX/EXT 2. Chronic right-sided low back pain with right-sided sciatica M54.41 CONSULT TO PHYSICAL THERAPY G89.29 XR LUMBAR MOTION 4V AP/LAT/ FLEX/EXT 3. Tobacco dependence F17.200 CONSULT TO SMOKING CESSATION RTC: after a full course of PT Other/Discussion: We had a lengthy discussion during today's office visit. She is still struggling with similar symptoms that she had a couple of years ago and really has not made much progress in many areas over time. Gabapentin has given her some temporary relief and injections in the past have given her temporary relief on the right at L4-5. She has a desire to start moving forward in her care overall. We discussed importance of smoking cessation, weight loss, and moving forward on her care path. This will include updating her x-rays and physical therapy and then updating MRI scan and considering either more injections or surgical consultation at that point to consider lumbar microdecompression procedure. In the meantime, she is very interested in smoking cessation program and will get set up for that as well. Time spent: 38 minutes today with this patient visit. This includes [id number] time, review of chart records regarding conservative care history, spine-pertinent imaging, and communication/care coordination with referring provider, problem-specific history-taking and counseling/education regarding treatment options. This document has been created with the use of voice recognition technology. It may contain inaccuracies: (e.g. misspellings, inaccurate syntax or word sense) that have escaped review. Dionne Glez MA documented in this encounter [facility] 08-17-2021 Miscellaneous Notes NAZIA 08/03/2021 NOV not scheduled at this time Rocio Lopez Ma documented in this encounter [facility] 08-11-2021 Miscellaneous Notes Pt called and is notified of providers message and instructions. Pt voices understanding. Roberta Hughes RN TC patient and mailbox full. Please try again later. Rocio Lopez Ma Please let Ni know that we would like to try a treatment for her persistent rash. I'd like to try a cream that she will apply three times daily for 5 consecutive days per week. For 4 weeks. If no improvement at that time, we can consider more aggressive treatment and/or consult to dermatology. The following approved medication requests have been transmitted electronically. Signed Prescriptions Disp Refills imiquimod (ALDARA) 5 % cream 60 Each 0 Sig: Apply topically to rash areas three times daily, for 5 consecutive days per week, for 4 weeks. Authorizing Provider: MATTHEW LINDSEY APRN.CNP documented in this encounter [facility] 08-03-2021 Instructions Matthew Lindsey APRN.ANDREINA - 08/03/2021 3:54 PM EDT Have your xray completed. Start your antibiotic. I'll let you know once I have an idea of how we'll treat your skin. documented in this encounter [facility] 08-03-2021 History of Present illness Narrative Chief Complaint Patient presents with: Acne: painful sores located on bottom, thighs, armpits & abdomen Breathing Problem: SOB, has trouble breathing during activity HPI Ni Kelley is a 35 year old female who presents here today for Above Complaints. Today: Lesions-can't remember a time she hasn't had these sores-started as a child-worsening. Are in axilla, buttocks, between legs, etc. Showers on a daily basis. Has tried changing body wash, soaps, detergents, etc. This does not help at all. Do come to a head like a pimple and pop at times. SOB-since having COVID, if active-running, busy with kids, up and down steps. Throat feels like mucous in it. When talking, feels like is raspy/scratchy. Sinuses have been bothering her. Right side of chest has been aching intermittently for a few days Staphylococcal folliculitis Past medical history, appointments, medications, allergies reviewed. Previous Medical History PAST MEDICAL HISTORY Diagnosis Date Allergic rhinitis due to animal hair and dander 12/04/2018 History of substance abuse ([facility]) Plantar fasciitis 12/04/2018 Previous Surgical History PAST SURGICAL HISTORY Procedure Laterality Date COLONOSCOPY GEN ANES 01/13/2021 EGD 01/13/2021 PAST SURGICAL HISTORY OF 2010 genital vaginal hematoma Family History FAMILY HISTORY Problem Relation Age of Onset Diabetes Mother Hypertension Father Hyperlipidemia Father Anxiety disorder Father Depression Father Patient Allergies ALLERGIES Allergen Reactions Nicotine Rash Nicotine patch-severe rash with the adhesive Cats Intolerance Dogs Intolerance Grass Pollen Intolerance Molds Extract Intolerance Current Medications Current Outpatient Medications on File Prior to Visit Medication Sig gabapentin (NEURONTIN) 600 mg tablet Take 1 tablet by mouth three times daily for 90 days. omeprazole (PRILOSEC) 20 mg capsule Take 1 capsule by mouth daily before breakfast. 1/2 hr before meal. escitalopram oxalate (LEXAPRO) 20 mg tablet Take 1 tablet by mouth once daily. tiZANidine (ZANAFLEX) 4 mg tablet Take 1 tablet by mouth every 8 hours as needed. No current facility-administered medications on file prior to visit. Social History Social History Tobacco Use Smoking status: Current Every Day Smoker Packs/day: 1.00 Years: 17.00 Pack years: 17.00 Types: Cigarettes Smokeless tobacco: Never Used Vaping Use Vaping Use: Never used Substance Use Topics Alcohol use: Yes Comment: occasional Drug use: Not Currently Types: Amphetamines, Crystal Meth, Heroin Comment: none since 06/2015 Review of Symptoms REVIEW OF SYSTEMS see HPI otherwise negative EXAM: BP 124/82 (BP Site: Left Arm, BP Position: Sitting, BP Cuff Size: Regular Adult) Pulse 66 Resp 16 Wt 113.4 kg (250 lb) LMP 01/31/2021 SpO2 100% BMI 40.35 kg/m General Appearance: Well appearing, alert, in no acute distress, well-hydrated, well nourished.. Skin: lesions-mild redness, occasional pustular, no drainage-buttocks, axilla, inner thighs. Head: Normocephalic, no masses, lesions, tenderness or abnormalities. Eyes: Anicteric sclera. Pupils are equally round and reactive to light. Extraocular movements are intact. . Ears: External ears normal, canals clear. Nose/Sinuses: Nares normal, septum midline, mucosa normal, no drainage or sinus tenderness. Oropharynx: Lips, mucosa, and tongue normal, teeth and gums normal, oropharynx normal. Lungs: Lungs clear to auscultation. No wheezing, rhonchi, rales.. Heart: RRR without murmur, gallop, or rubs. No ectopy. Lymph Nodes: No cervical lymphadenopathy, No supraclavicular lymphadenopathy and No axillary lymphadenopathy.. Health Maintenance List PNEUMOCOCCAL(1 - PCV) Never done HEPATITIS C SCREENING Never done HIV SCREENING Never done DTAP,TDAP,TD(1 - Tdap) Never done PAP TESTING Never done HPV TESTING Never done COVID-19 VACCINE(3 - Booster for Moderna series) due on 09/24/2020 INFLUENZA(Season Ended) due on 11/09/2021 Data reviewed Previous records, office notes ASSESSMENT/PLAN: 1. SOB (shortness of breath) - ICD9: 786.05, ICD10: R06.02 (primary diagnosis) Post-covid. Suspect lingering scarring, persistent sinusitis. Do not suspect cardiac etiology. - XR CHEST 2V FRONTAL/LAT - DOXYCYCLINE HYCLATE 100 MG TABLET 2. Skin lesion - ICD9: 709.9, ICD10: L98.9 Multiple differential diagnoses. Will discuss with collaborating physician prior to treatment. 3. Chest discomfort - ICD9: 786.59, ICD10: R07.89 Post-covid. Suspect lingering scarring, persistent sinusitis. Do not suspect cardiac etiology. - XR CHEST 2V FRONTAL/LAT - ECG COMPLETE-sinus sudhir, no ectopy 4. Chronic sinusitis, unspecified location - ICD9: 473.9, ICD10: J32.9 Post-covid. Suspect lingering scarring, persistent sinusitis. Do not suspect cardiac etiology. - DOXYCYCLINE HYCLATE 100 MG TABLET Matthew Lindsey APRN.CNP Greater than 50% of 46-minute visit spent face to face with patient in counseling and education. documented in this encounter [facility] 07-07-2021 Miscellaneous Notes Patient has been identified by name and date of : Yes RX INSTRUCTIONS: Patient aware RX will be sent to pharmacy. No need to notify patient. Patient phones requesting refills as follows: Pending Prescriptions Disp Refills GABAPENTIN 600 MG TABLET 90 tablet 2 Sig: Take 1 tablet by mouth three times daily for 90 days. LINDSEY: No Please review and advise. Dionne Glez MA documented in this encounter [facility] 06-22-2021 Miscellaneous Notes Called Patient on 06/22 and scheduled her with Roxanne Pena on 08/22. That was the soonest that she had available. Please call patient and assist her to schedule with ANGUS Harris. She is a known patient to Roxanne. Thanks. Matthew Lindsey APRN.ANDREINA documented in this encounter [facility] 06-22-2021 History of Present illness Narrative VIRTUAL VISIT PROGRESS NOTE This is a virtual visit using [employer] video visit. It required patient-provider interaction for the medical decision making as documented below. Ni Kelley is a 35 year old female seen for medication follow up. Today: Still taking the Lexapro. Working well, hasn't had any issues. Gabapentin working well, but may need to stop this medication. Will talk with Dr. Llanos about this, as she feels like it is just a little too much. Still having bowel issues-loss of bowels, gas very bad. Is worse with her periods. Wears depends at times. Open to following up with GI again. Omeprazole does help with heartburn. But has been out of this for a few months. Has been getting boils on her thighs, inner thighs, buttocks. Has been going on for a couple months. Last for a couple weeks. Hurt really bad. Does squeeze them, which helps them to go down. Doesn't come to a head like a pimple. HISTORY REVIEWED (electronic chart updated): PAST MEDICAL HISTORY Diagnosis Date Allergic rhinitis due to animal hair and dander 12/04/2018 History of substance abuse ([facility]) Plantar fasciitis 12/04/2018 PAST SURGICAL HISTORY Procedure Laterality Date COLONOSCOPY GEN ANES 01/13/2021 EGD 01/13/2021 PAST SURGICAL HISTORY OF 2011 genital vaginal hematoma FAMILY HISTORY Problem Relation Age of Onset Diabetes Mother Hypertension Father Hyperlipidemia Father Anxiety disorder Father Depression Father Social History Tobacco Use Smoking status: Current Every Day Smoker Packs/day: 1.00 Years: 17.00 Pack years: 17.00 Types: Cigarettes Smokeless tobacco: Never Used Vaping Use Vaping Use: Never used Substance Use Topics Alcohol use: Yes Comment: occasional Drug use: Not Currently Types: Amphetamines, Crystal Meth, Heroin Comment: none since 06/2015 Current Outpatient Medications Medication Sig escitalopram oxalate (LEXAPRO) 20 mg tablet Take 1 tablet by mouth once daily. gabapentin (NEURONTIN) 600 mg tablet Take 1 tablet by mouth three times daily for 90 days. gabapentin (NEURONTIN) 300 mg capsule TAKE 1 CAPSULE BY MOUTH THREE TIMES DAILY omeprazole (PRILOSEC) 20 mg capsule Take 1 capsule by mouth daily before breakfast. 1/2 hr before meal. tiZANidine (ZANAFLEX) 4 mg tablet Take 1 tablet by mouth every 8 hours as needed. No current facility-administered medications for this visit. ALLERGIES Allergen Reactions Nicotine Rash Nicotine patch-severe rash with the adhesive Cats Intolerance Dogs Intolerance Grass Pollen Intolerance Molds Extract Intolerance REVIEW OF SYSTEMS: All other ROS: negative As noted in HPI PHYSICAL EXAMINATION: VIDEO EXAM: (if completed, performed via video enabled technology) GENERAL: alert and appropriate, in no distress, well-hydrated, well nourished and happy, smiling, interactive HEAD: normocephalic, no abnormality or lesion noted ASSESSMENT: (F41.8) Depression with anxiety (primary encounter diagnosis) (R10.9) Abdominal pain, unspecified abdominal location (K59.9) 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 Refill Lexapro. Schedule follow up with Roxanne Pena, GI specialty. No current skin lesions boils but will call and needs to be seen in the office the next time she actively has one present. Matthew Lindsey APRN.ANDREINA documented in this encounter [facility] 06-21-2021 Miscellaneous Notes Last office visit: 12/19/20 F/u scheduled: none Christina Triana Ma documented in this encounter [facility] Diagnosis Lumbar radiculopathy Thoracic or lumbosacral neuritis or radiculitis, unspecified [facility]* Diagnosis SOB (shortness of breath)- Primary Shortness of breath Skin lesion Unspecified disorder of skin and subcutaneous tissue Chest discomfort Other chest pain Chronic sinusitis, unspecified location [facility] Diagnosis Skin lesion- Primary Unspecified disorder of skin and subcutaneous tissue documented in this encounter [facility] note* Diagnosis Abdominal pain, unspecified abdominal location documented in this encounter [facility] note* Diagnosis Lumbar radiculopathy- Primary Thoracic or lumbosacral neuritis or radiculitis, unspecified Chronic right-sided low back pain with right-sided sciatica Tobacco dependence Tobacco use disorder documented in this encounter [facility] note* Diagnosis Lumbar radiculopathy Thoracic or lumbosacral neuritis or radiculitis, unspecified Chronic right-sided low back pain with right-sided sciatica documented in this encounter [facility] note* Diagnosis Skin lesion- Primary Unspecified disorder of skin and subcutaneous tissue Dyshidrotic eczema Dyshidrosis documented in this encounter [facility] note* Diagnosis Lumbar radiculopathy Thoracic or lumbosacral neuritis or radiculitis, unspecified documented in this encounter [facility] note* Diagnosis Abdominal pain, unspecified abdominal location documented in this encounter [facility] note* Diagnosis Lumbar radiculopathy Thoracic or lumbosacral neuritis or radiculitis, unspecified documented in this encounter [facility] note* Diagnosis Acute right-sided low back pain with right-sided sciatica- Primary Spinal stenosis of lumbar region, unspecified whether neurogenic claudication present Lumbar back pain with radiculopathy affecting right lower extremity Foraminal stenosis of lumbar region Spinal stenosis, lumbar region, without neurogenic claudication Lumbar nerve root impingement Thoracic or lumbosacral neuritis or radiculitis, unspecified Screening for thyroid disorder Screening for diabetes mellitus Encounter for vitamin deficiency screening Screening for other and unspecified endocrine, nutritional, metabolic, and immunity disorders Screening for lipid disorders documented in this encounter [facility] note* Diagnosis Spinal stenosis of lumbar region, unspecified whether neurogenic claudication present Lumbar back pain with radiculopathy affecting right lower extremity Foraminal stenosis of lumbar region Spinal stenosis, lumbar region, without neurogenic claudication Acute right-sided low back pain with right-sided sciatica Lumbar nerve root impingement Thoracic or lumbosacral neuritis or radiculitis, unspecified documented in this encounter [facility] note* Diagnosis Rash of hand- Primary [facility]* Diagnosis Abdominal pain, unspecified abdominal location [facility]* Diagnosis Depression with anxiety- Primary Dysthymic disorder Lumbar back pain with radiculopathy affecting right lower extremity [facility]* Diagnosis Depression with anxiety Dysthymic disorder [facility]* Diagnosis Acquired cyst of kidney- Primary Parapelvic renal cyst Acquired cyst of kidney Spinal stenosis of lumbar region, unspecified whether neurogenic claudication present Lumbar back pain with radiculopathy affecting right lower extremity [facility]* Diagnosis Abdominal pain, unspecified abdominal location [facility]* Diagnosis Depression with anxiety Dysthymic disorder [facility]* Diagnosis Spinal stenosis of lumbar region, unspecified whether neurogenic claudication present Lumbar back pain with radiculopathy affecting right lower extremity Foraminal stenosis of lumbar region Spinal stenosis, lumbar region, without neurogenic claudication Acute right-sided low back pain with right-sided sciatica Lumbar nerve root impingement Thoracic or lumbosacral neuritis or radiculitis, unspecified [facility]* Diagnosis Depression with anxiety- Primary Dysthymic disorder [facility]* Diagnosis Abdominal pain, unspecified abdominal location- Primary Spinal stenosis of lumbar region, unspecified whether neurogenic claudication present Lumbar back pain with radiculopathy affecting right lower extremity Foraminal stenosis of lumbar region Spinal stenosis, lumbar region, without neurogenic claudication Acute right-sided low back pain with right-sided sciatica Lumbar nerve root impingement Thoracic or lumbosacral neuritis or radiculitis, unspecified Depression with anxiety Dysthymic disorder Chronic diarrhea Diarrhea Incontinence of feces with fecal urgency Abdominal gas pain Flatulence, eructation, and gas pain [facility]* Diagnosis Depression with anxiety Dysthymic disorder [facility]* Diagnosis Spinal stenosis of lumbar region, unspecified whether neurogenic claudication present- Primary Lumbar back pain with radiculopathy affecting right lower extremity Foraminal stenosis of lumbar region Spinal stenosis, lumbar region, without neurogenic claudication Lumbar nerve root impingement Thoracic or lumbosacral neuritis or radiculitis, unspecified Secondary insomnia Organic insomnia, unspecified [facility]* Diagnosis Abdominal pain, unspecified abdominal location Depression with anxiety Dysthymic disorder documented [facility]* Diagnosis Depression with anxiety Dysthymic disorder documented [facility] this [facility]* Diagnosis Spinal stenosis of lumbar region, unspecified whether neurogenic claudication present Lumbar back pain with radiculopathy affecting right lower extremity documented [facility]* Diagnosis Treatment not available- Primary Procedure not carried out for other reasons [facility]* Diagnosis Spinal stenosis of lumbar region, unspecified whether neurogenic claudication present Lumbar back pain with radiculopathy affecting right lower extremity Foraminal stenosis of lumbar region Spinal stenosis, lumbar region, without neurogenic claudication Lumbar nerve root impingement Thoracic or lumbosacral neuritis or radiculitis, unspecified Secondary insomnia Organic insomnia, unspecified [facility]* Diagnosis Spinal stenosis of lumbar region, unspecified whether neurogenic claudication present Lumbar back pain with radiculopathy affecting right lower extremity Foraminal stenosis of lumbar region Spinal stenosis, lumbar region, without neurogenic claudication Lumbar nerve root impingement Thoracic or lumbosacral neuritis or radiculitis, unspecified Secondary insomnia Organic insomnia, unspecified [facility]* Diagnosis Abdominal pain, unspecified abdominal location Depression with anxiety Dysthymic disorder Spinal stenosis of lumbar region, unspecified whether neurogenic claudication present Lumbar back pain with radiculopathy affecting right lower extremity Foraminal stenosis of lumbar region Spinal stenosis, lumbar region, without neurogenic claudication Lumbar nerve root impingement Thoracic or lumbosacral neuritis or radiculitis, unspecified Secondary insomnia Organic insomnia, unspecified [facility]* Diagnosis Spinal stenosis of lumbar region, unspecified whether neurogenic claudication present- Primary Lumbar radiculopathy Thoracic or lumbosacral neuritis or radiculitis, unspecified Lumbar back pain with radiculopathy affecting right lower extremity documented [facility] this [facility]* Diagnosis Acquired cyst of kidney Parapelvic renal cyst Acquired cyst of kidney documented [facility] this [facility]* Diagnosis Spinal stenosis of lumbar region, unspecified whether neurogenic claudication present Lumbar back pain with radiculopathy affecting right lower extremity Foraminal stenosis of lumbar region Spinal stenosis, lumbar region, without neurogenic claudication Acute right-sided low back pain with right-sided sciatica Lumbar nerve root impingement Thoracic or lumbosacral neuritis or radiculitis, unspecified [facility]* Diagnosis Anxiety and depression- Primary Dysthymic disorder [facility] Diagnosis Depression with anxiety- Primary Dysthymic disorder documented in this encounter [facility] for referral (narrative)* Outpatient Procedure (Routine) - Closed Specialty Diagnoses / Procedures Referred By Contac t Referred To Contact [facility] Diagnoses Chest discomfort Procedures ECG COMPLETE ECG ROUTINE ECG W/LEAST 12 LDS W/I&R Matthew Lindsey APRN.CNP [address] [place] [address] [facility] [place] [address] [place] [address] Referral ID Status Reason Start Date Expiration Date V isits Requested Visits Authorized [id number] Closed Auto-Generate d Referral 08/03/2021 08/03/2022 1 1 [facility] for referral (narrative)* Diagnostic Procedure Only (Routine) - Pending Review Specialty Diagnoses / Procedures Referred By Contac t Referred To Contact XR IMAGING Diagnoses Lumbar radiculopathy Chronic right-sided low back pain with right-sided sciatica Procedures XR LUMBAR MOTION 4V AP/LAT/ FLEX/EXT RADEX SPINE LUMBOSACRAL MINIMUM 4 VIEWS Luiz Llanos PA-C [address] [place] [id number] Xr Imaging Referral ID Status Reason Start Date Expiration Date Visits Requested Visits Authorized [id number] Pending Review Auto-Generat ed Referral 11/09/2021 12/09/2022 1 1 * - Pending Review Specialty Diagnoses / Procedures Referred By Contac t Referred To Contact Diagnoses Lumbar radiculopathy Chronic right-sided low back pain with right-sided sciatica Procedures CONSULT TO PHYSICAL THERAPY Luiz Llanos PA-C [address] [place] [address] Referral ID Status Reason Start Date Expiration Date V isits Requested Visits Authorized [id number] Pending Review 11/09/2021 02/07/2022 1 1 [facility] for referral (narrative)* Diagnostic Procedure Only (Routine) - Closed Specialty Diagnoses / Procedures Referred By Contac t Referred To Contact XR IMAGING Diagnoses Lumbar radiculopathy Chronic right-sided low back pain with right-sided sciatica Procedures XR LUMBAR MOTION 4V AP/LAT/ FLEX/EXT RADEX SPINE LUMBOSACRAL MINIMUM 4 VIEWS Luiz Llanos PA-C [address] [place] [address] Xr Imaging Referral ID Status Reason Start Date Expiration Date V isits Requested Visits Authorized [id number] Closed Auto-Generate d Referral 11/09/2021 12/09/2022 1 1 [facility] for visit Narrative* Diagnostic Procedure Only (Routine) - Closed Specialty Diagnoses / Procedures Referred By Contac t Referred To Contact XR IMAGING Diagnoses Lumbar radiculopathy Chronic right-sided low back pain with right-sided sciatica Procedures XR LUMBAR MOTION 4V AP/LAT/ FLEX/EXT RADEX SPINE LUMBOSACRAL MINIMUM 4 VIEWS Luiz Llanos PA-C [address] [place] [address] Xr Imaging Referral ID Status Reason Start Date Expiration Date V isits Requested Visits Authorized [id number] Closed Auto-Generate d Referral 11/09/2021 12/09/2022 1 1 [facility] Summary Purpose Family History No Family History Records FoundNo Family History Records FoundNo Family History Records FoundNo Family History Records FoundNo Family History Records Found Advance Directives No Advanced Directives Records FoundDocuments on File Type Date Recorded Patient Turn Down Man Expl anation Advance Directive(s) 01/13/2021 10:20 AM Advance Directive(s) 12/22/2020 7:58 AM Advance Directive(s) 12/08/2020 9:46 AM Advance Directive(s) 07/12/2020 7:01 AM Advance Directive(s) 06/30/2020 3:31 PM Documents on File Type Date Recorded Patient Turn Down Man Expl anation Advance Directive(s) 01/13/2021 10:20 AM Advance Directive(s) 12/22/2020 7:58 AM Advance Directive(s) 12/08/2020 9:46 AM Advance Directive(s) 07/12/2020 7:01 AM Advance Directive(s) 06/30/2020 3:31 PM Reason for Referral Specialty Diagnoses / Procedures Referred By Krystalac t Referred To Contact Diagnoses Skin lesion Matthew Lindsey APRN.WEATHERSTRIP MACHINE OPERATOR [address] [place] [address] Referral ID Status Reason Start Date Expiration Date V isits Requested Visits Authorized [id number] Pending Review 1 1 Specialty Diagnoses / Procedures Referred By Contac t Referred To Contact Diagnoses Skin lesion Dyshidrotic eczema Matthew Lindsey APRN.WEATHERSTRIP MACHINE OPERATOR [address] [place] [address] Referral ID Status Reason Start Date Expiration Date Visits Re quested Visits Authorized [id number] Closed 1 1 Specialty Diagnoses / Procedures Referred By Krystalac t Referred To Contact MR IMAGING Diagnoses Spinal stenosis of lumbar region, unspecified whether neurogenic claudication present Lumbar back pain with radiculopathy affecting right lower extremity Foraminal stenosis of lumbar region Acute right-sided low back pain with right-sided sciatica Lumbar nerve root impingement Procedures MRI LUMBAR SPINE WO IVCON MRI SPINAL CANAL LUMBAR W/O CONTRAST MATERIAL Matthew Lindsey APRN.WEATHERSTRIP MACHINE OPERATOR [address] [place] [address] Mr Imaging Referral ID Status Reason Start Date Expiration Date Visits Requested Visits Authorized [id number] Pending Review Auto-Generat ed Referral 05/03/2022 06/02/2023 1 1 Specialty Diagnoses / Procedures Referred By Contac t Referred To Contact Pain Management Diagnoses Spinal stenosis of lumbar region, unspecified whether neurogenic claudication present Lumbar back pain with radiculopathy affecting right lower extremity Procedures CONSULT TO PAIN MGT OFFICE/OUTPATIENT NEW HIGH MDM 60-74 MINUTES Matthew Lindsey, MUD MILL TENDER.WEATHERSTRIP MACHINE OPERATOR [address] [place] [address] Referral ID Status Reason Start Date Expiration Date Visits Requested Visits Authorized [id number] Authorized PCP Requested Referral 09/06/2022 09/06/2023 1 1 Specialty Diagnoses / Procedures Referred By Contac t Referred To Contact CT IMAGING Diagnoses Acquired cyst of kidney Parapelvic renal cyst Procedures CT ABD/PEL W IVCON CT ABD & PELVIS W/CONTRAST Matthew Lindsey, MUD MILL TENDER.WEATHERSTRIP MACHINE OPERATOR [address] [place] [address] Ct Imaging Referral ID Status Reason Start Date Expiration Date Visits Requested Visits Authorized [id number] Authorized Auto-Generat ed Referral 09/12/2022 11/11/2022 2 2 Specialty Diagnoses / Procedures Referred By Contac t Referred To Contact CT IMAGING Diagnoses Acquired cyst of kidney Parapelvic renal cyst Procedures CT ABD/PEL W IVCON CT ABD & PELVIS W/CONTRAST Matthew Lindsey, MUD MILL TENDER.WEATHERSTRIP MACHINE OPERATOR [address] [place] [address] [place] [address] Referral ID Status Reason Start Date Expiration Date V isits Requested Visits Authorized [id number] Closed Auto-Generate d Referral 09/12/2022 11/11/2022 2 2 Specialty Diagnoses / Procedures Referred By Contac t Referred To Contact MR IMAGING Diagnoses Spinal stenosis of lumbar region, unspecified whether neurogenic claudication present Lumbar back pain with radiculopathy affecting right lower extremity Foraminal stenosis of lumbar region Acute right-sided low back pain with right-sided sciatica Lumbar nerve root impingement Procedures MRI LUMBAR SPINE WO IVCON MRI SPINAL CANAL LUMBAR W/O CONTRAST MATERIAL Matthew Lindsey, MUD MILL TENDER.WEATHERSTRIP MACHINE OPERATOR [address] [place] [address] [place] [address] Referral ID Status Reason Start Date Expiration Date V isits Requested Visits Authorized [id number] Denied Auto-Generat ed Referral Patient Cleared - Admin/Chairm an/Director advise to proceed or did not respond 08/29/2022 10/28/2022 1 0 Medications Administered Section Inactive Administered Medications - up to 3 most recent administrations Medication Order MAR Action Action Date Dose Rate Site triamcinolone acetonide 40 mg injection (KeNALog 40) 40 mg, INTRAMUSCULAR, ONCE, 1 dose, On Elisabet 05/03/22 at 1230 Given 05/03/2022 1:00 PM EST 40 mg Buttocks, Right Additional Source Comments INFORMATION SOURCE (unrecogn ized section and content) DATE CREATED AUTHOR AUTHOR'S ORGANIZ ATION 2020 [facility] DATE CREATED AUTHOR AUTHOR'S ORGANIZ ATION 12/30/2020 [facility] DATE CREATED AUTHOR AUTHOR'S ORGANIZ ATION 02/22/2023 [facility] DATE CREATED AUTHOR AUTHOR'S ORGANIZ ATION 03/01/2023 [facility] Source Comments (unrecognize d section and content) In the event this informatio n is protected by the Federal Confidentiality of Alcohol and Drug Abuse Patient Records regulations: The Federal rules restrict any use of the information to criminally investigate or prosecute any alcohol or drug abuse patient.[facility] the event this information is protected by the Federal Confidentiality of Alcohol and Drug Abuse Patient Records regulations: The Federal rules restrict any use of the information to criminally investigate or prosecute any alcohol or drug abuse patient.[facility] the event this information is protected by the Federal Confidentiality of Alcohol and Drug Abuse Patient Records regulations: The Federal rules restrict any use of the information to criminally investigate or prosecute any alcohol or drug abuse patient.[facility]In the event this information is protected by the Federal Confidentiality of Alcohol and Drug Abuse Patient Records regulations: The Federal rules restrict any use of the information to criminally investigate or prosecute any alcohol or drug abuse patient.[facility] the event this information is protected by the Federal Confidentiality of Alcohol and Drug Abuse Patient Records regulations: The Federal rules restrict any use of the information to criminally investigate or prosecute any alcohol or drug abuse patient.[facility] the event this information is protected by the Federal Confidentiality of Alcohol and Drug Abuse Patient Records regulations: The Federal rules restrict any use of the information to criminally investigate or prosecute any alcohol or drug abuse patient.[facility]In the event this information is protected by the Federal Confidentiality of Alcohol and Drug Abuse Patient Records regulations: The Federal rules restrict any use of the information to criminally investigate or prosecute any alcohol or drug abuse patient.[facility] the event this information is protected by the Federal Confidentiality of Alcohol and Drug Abuse Patient Records regulations: The Federal rules restrict any use of the information to criminally investigate or prosecute any alcohol or drug abuse patient.[facility]In the event this information is protected by the Federal Confidentiality of Alcohol and Drug Abuse Patient Records regulations: The Federal rules restrict any use of the information to criminally investigate or prosecute any alcohol or drug abuse patient.[facility]In the event this information is protected by the Federal Confidentiality of Alcohol and Drug Abuse Patient Records regulations: The Federal rules restrict any use of the information to criminally investigate or prosecute any alcohol or drug abuse patient.[facility] the event this information is protected by the Federal Confidentiality of Alcohol and Drug Abuse Patient Records regulations: The Federal rules restrict any use of the information to criminally investigate or prosecute any alcohol or drug abuse patient.[facility]In the event this information is protected by the Federal Confidentiality of Alcohol and Drug Abuse Patient Records regulations: The Federal rules restrict any use of the information to criminally investigate or prosecute any alcohol or drug abuse patient.[facility]In the event this information is protected by the Federal Confidentiality of Alcohol and Drug Abuse Patient Records regulations: The Federal rules restrict any use of the information to criminally investigate or prosecute any alcohol or drug abuse patient.[facility]In the event this information is protected by the Federal Confidentiality of Alcohol and Drug Abuse Patient Records regulations: The Federal rules restrict any use of the information to criminally investigate or prosecute any alcohol or drug abuse patient.[facility]In the event this information is protected by the Federal Confidentiality of Alcohol and Drug Abuse Patient Records regulations: The Federal rules restrict any use of the information to criminally investigate or prosecute any alcohol or drug abuse patient.[facility]In the event this information is protected by the Federal Confidentiality of Alcohol and Drug Abuse Patient Records regulations: The Federal rules restrict any use of the information to criminally investigate or prosecute any alcohol or drug abuse patient.[facility]In the event this information is protected by the Federal Confidentiality of Alcohol and Drug Abuse Patient Records regulations: The Federal rules restrict any use of the information to criminally investigate or prosecute any alcohol or drug abuse patient.[facility]In the event this information is protected by the Federal Confidentiality of Alcohol and Drug Abuse Patient Records regulations: The Federal rules restrict any use of the information to criminally investigate or prosecute any alcohol or drug abuse patient.[facility]In the event this information is protected by the Federal Confidentiality of Alcohol and Drug Abuse Patient Records regulations: The Federal rules restrict any use of the information to criminally investigate or prosecute any alcohol or drug abuse patient.[facility]In the event this information is protected by the Federal Confidentiality of Alcohol and Drug Abuse Patient Records regulations: The Federal rules restrict any use of the information to criminally investigate or prosecute any alcohol or drug abuse patient.[facility]In the event this information is protected by the Federal Confidentiality of Alcohol and Drug Abuse Patient Records regulations: The Federal rules restrict any use of the information to criminally investigate or prosecute any alcohol or drug abuse patient.[facility]In the event this information is protected by the Federal Confidentiality of Alcohol and Drug Abuse Patient Records regulations: The Federal rules restrict any use of the information to criminally investigate or prosecute any alcohol or drug abuse patient.[facility]In the event this information is protected by the Federal Confidentiality of Alcohol and Drug Abuse Patient Records regulations: The Federal rules restrict any use of the information to criminally investigate or prosecute any alcohol or drug abuse patient.[facility]In the event this information is protected by the Federal Confidentiality of Alcohol and Drug Abuse Patient Records regulations: The Federal rules restrict any use of the information to criminally investigate or prosecute any alcohol or drug abuse patient.[facility]In the event this information is protected by the Federal Confidentiality of Alcohol and Drug Abuse Patient Records regulations: The Federal rules restrict any use of the information to criminally investigate or prosecute any alcohol or drug abuse patient.[facility]In the event this information is protected by the Federal Confidentiality of Alcohol and Drug Abuse Patient Records regulations: The Federal rules restrict any use of the information to criminally investigate or prosecute any alcohol or drug abuse patient.[facility]In the event this information is protected by the Federal Confidentiality of Alcohol and Drug Abuse Patient Records regulations: The Federal rules restrict any use of the information to criminally investigate or prosecute any alcohol or drug abuse patient.[facility]In the event this information is protected by the Federal Confidentiality of Alcohol and Drug Abuse Patient Records regulations: The Federal rules restrict any use of the information to criminally investigate or prosecute any alcohol or drug abuse patient.[facility]In the event this information is protected by the Federal Confidentiality of Alcohol and Drug Abuse Patient Records regulations: The Federal rules restrict any use of the information to criminally investigate or prosecute any alcohol or drug abuse patient.[facility]In the event this information is protected by the Federal Confidentiality of Alcohol and Drug Abuse Patient Records regulations: The Federal rules restrict any use of the information to criminally investigate or prosecute any alcohol or drug abuse patient.[facility]In the event this information is protected by the Federal Confidentiality of Alcohol and Drug Abuse Patient Records regulations: The Federal rules restrict any use of the information to criminally investigate or prosecute any alcohol or drug abuse patient.[facility]In the event this information is protected by the Federal Confidentiality of Alcohol and Drug Abuse Patient Records regulations: The Federal rules restrict any use of the information to criminally investigate or prosecute any alcohol or drug abuse patient.[facility]In the event this information is protected by the Federal Confidentiality of Alcohol and Drug Abuse Patient Records regulations: The Federal rules restrict any use of the information to criminally investigate or prosecute any alcohol or drug abuse patient.[facility]In the event this information is protected by the Federal Confidentiality of Alcohol and Drug Abuse Patient Records regulations: The Federal rules restrict any use of the information to criminally investigate or prosecute any alcohol or drug abuse patient.[facility]In the event this information is protected by the Federal Confidentiality of Alcohol and Drug Abuse Patient Records regulations: The Federal rules restrict any use of the information to criminally investigate or prosecute any alcohol or drug abuse patient.[facility]In the event this information is protected by the Federal Confidentiality of Alcohol and Drug Abuse Patient Records regulations: The Federal rules restrict any use of the information to criminally investigate or prosecute any alcohol or drug abuse patient.[facility]In the event this information is protected by the Federal Confidentiality of Alcohol and Drug Abuse Patient Records regulations: The Federal rules restrict any use of the information to criminally investigate or prosecute any alcohol or drug abuse patient.[facility]In the event this information is protected by the Federal Confidentiality of Alcohol and Drug Abuse Patient Records regulations: The Federal rules restrict any use of the information to criminally investigate or prosecute any alcohol or drug abuse patient.[facility]In the event this information is protected by the Federal Confidentiality of Alcohol and Drug Abuse Patient Records regulations: The Federal rules restrict any use of the information to criminally investigate or prosecute any alcohol or drug abuse patient.[facility]In the event this information is protected by the Federal Confidentiality of Alcohol and Drug Abuse Patient Records regulations: The Federal rules restrict any use of the information to criminally investigate or prosecute any alcohol or drug abuse patient.[facility]In the event this information is protected by the Federal Confidentiality of Alcohol and Drug Abuse Patient Records regulations: The Federal rules restrict any use of the information to criminally investigate or prosecute any alcohol or drug abuse patient.[facility]In the event this information is protected by the Federal Confidentiality of Alcohol and Drug Abuse Patient Records regulations: The Federal rules restrict any use of the information to criminally investigate or prosecute any alcohol or drug abuse patient.[facility]In the event this information is protected by the Federal Confidentiality of Alcohol and Drug Abuse Patient Records regulations: The Federal rules restrict any use of the information to criminally investigate or prosecute any alcohol or drug abuse patient.[facility]In the event this information is protected by the Federal Confidentiality of Alcohol and Drug Abuse Patient Records regulations: The Federal rules restrict any use of the information to criminally investigate or prosecute any alcohol or drug abuse patient.[facility]In the event this information is protected by the Federal Confidentiality of Alcohol and Drug Abuse Patient Records regulations: The Federal rules restrict any use of the information to criminally investigate or prosecute any alcohol or drug abuse patient.[facility]In the event this information is protected by the Federal Confidentiality of Alcohol and Drug Abuse Patient Records regulations: The Federal rules restrict any use of the information to criminally investigate or prosecute any alcohol or drug abuse patient.[facility]In the event this information is protected by the Federal Confidentiality of Alcohol and Drug Abuse Patient Records regulations: The Federal rules restrict any use of the information to criminally investigate or prosecute any alcohol or drug abuse patient.[facility]In the event this information is protected by the Federal Confidentiality of Alcohol and Drug Abuse Patient Records regulations: The Federal rules restrict any use of the information to criminally investigate or prosecute any alcohol or drug abuse patient.[facility]In the event this information is protected by the Federal Confidentiality of Alcohol and Drug Abuse Patient Records regulations: The Federal rules restrict any use of the information to criminally investigate or prosecute any alcohol or drug abuse patient.[facility]In the event this information is protected by the Federal Confidentiality of Alcohol and Drug Abuse Patient Records regulations: The Federal rules restrict any use of the information to criminally investigate or prosecute any alcohol or drug abuse patient.[facility]In the event this information is protected by the Federal Confidentiality of Alcohol and Drug Abuse Patient Records regulations: The Federal rules restrict any use of the information to criminally investigate or prosecute any alcohol or drug abuse patient.[facility]In the event this information is protected by the Federal Confidentiality of Alcohol and Drug Abuse Patient Records regulations: The Federal rules restrict any use of the information to criminally investigate or prosecute any alcohol or drug abuse patient.[facility]In the event this information is protected by the Federal Confidentiality of Alcohol and Drug Abuse Patient Records regulations: The Federal rules restrict any use of the information to criminally investigate or prosecute any alcohol or drug abuse patient.[facility]In the event this information is protected by the Federal Confidentiality of Alcohol and Drug Abuse Patient Records regulations: The Federal rules restrict any use of the information to criminally investigate or prosecute any alcohol or drug abuse patient.[facility]In the event this information is protected by the Federal Confidentiality of Alcohol and Drug Abuse Patient Records regulations: The Federal rules restrict any use of the information to criminally investigate or prosecute any alcohol or drug abuse patient.[facility]In the event this information is protected by the Federal Confidentiality of Alcohol and Drug Abuse Patient Records regulations: The Federal rules restrict any use of the information to criminally investigate or prosecute any alcohol or drug abuse patient.[facility]In the event this information is protected by the Federal Confidentiality of Alcohol and Drug Abuse Patient Records regulations: The Federal rules restrict any use of the information to criminally investigate or prosecute any alcohol or drug abuse patient.[facility]In the event this information is protected by the Federal Confidentiality of Alcohol and Drug Abuse Patient Records regulations: The Federal rules restrict any use of the information to criminally investigate or prosecute any alcohol or drug abuse patient.[facility]In the event this information is protected by the Federal Confidentiality of Alcohol and Drug Abuse Patient Records regulations: The Federal rules restrict any use of the information to criminally investigate or prosecute any alcohol or drug abuse patient.[facility] Reason for Visit (unrecogniz ed section and content) Specialty Diagnoses / Procedures Referred By Mirtha t Referred To Contact CT IMAGING Diagnoses Acquired cyst of kidney Parapelvic renal cyst Procedures CT ABD/PEL W IVCON CT ABD & PELVIS W/CONTRAST Matthew Lindsey APRN.WEATHERSTRIP MACHINE OPERATOR [address] [place] [address] [place] [address] Referral ID Status Reason Start Date Expiration Date V isits Requested Visits Authorized [id number] Closed Auto-Generate d Referral 09/12/2022 11/11/2022 2 2 Reason Onset Date Comments Refill Request 06/21/2021 Reason Comments Medication Follow-up Reason Onset Date Comments Refill Request 07/06/2021 Reason Comments Scheduling Reason Comments Acne painful sores locate d on bottom, thighs, armpits & abdomen Breathing Problem SOB, has trouble cristin athing during activity Reason Comments follow up from appointment Reason Onset Date Comments Refill Request 08/17/2021 Reason Comments Follow Up Low Back Pain Right Hip Pain Reason Onset Date Comments Refill Request 11/24/2021 Reason Onset Date Comments Refill Request 12/13/2021 Reason Comments Appointment Reason Comments Medication Problem Reason Onset Date Comments Refill Request 02/06/2022 Reason Onset Date Comments Refill Request 03/11/2022 Reason Onset Date Comments Refill Request 03/14/2022 Reason Onset Date Comments Refill Request 03/13/2022 Reason Onset Date Comments Refill Request 04/09/2022 Reason Comments Sciatica Pain and numbness- L ower back into right leg, pain in left shoulder and neck Reason Comments Request Outside Medical Records Reason Onset Date Comments Refill Request 05/28/2022 Reason Comments LESION, SKIN Right hand, dry itch y patch since DEC 2021- scheduled with Derm in August Reason Comments Results Reason Onset Date Comments Refill Request 06/21/2022 Reason Comments Behavioral Problem Numbness Started in right hip and leg, was told to let provider know if getting worse. Now having increased right hip and leg numbness and having numbness to [place] area and right arm Reason Onset Date Comments Refill Request 09/02/2022 Reason Comments Results Reason Onset Date Comments Refill Request 09/16/2022 Reason Comments Follow Up med review Reason Comments Medication Follow-up Forgetfulness Reason Onset Date Comments Refill Request 11/15/2022 Reason Comments Injection Questions Reason Comments New Patient Evaluation Back Pain Lower Specialty Diagnoses / Procedures Referred By Mirtha t Referred To Contact Pain Management Diagnoses Spinal stenosis of lumbar region, unspecified whether neurogenic claudication present Lumbar back pain with radiculopathy affecting right lower extremity Procedures CONSULT TO PAIN MGT OFFICE/OUTPATIENT NEW HIGH MDM 60-74 MINUTES Matthew Lindsey, LOY.WEATHERSTRIP MACHINE OPERATOR [address] [place] [address] Referral ID Status Reason Start Date Expiration Date V isits Requested Visits Authorized [id number] Closed PCP Requested Referral 09/06/2022 09/06/2023 1 1 Reason Comments Pain Reason Comments pain concerns Reason Onset Date Comments Referral 11/21/2022 Reason Onset Date Comments Schedule Referral From Dr. Oliveros 11/21/2022 Reason Onset Date Comments Refill Request 11/27/2022 Reason Comments Procedure Follow Up Reason Onset Date Comments Refill Request 12/10/2022 Reason Comments Consult Reason Comments Internal Referrals/resources PCP Portal Referral Calls Reason Comments Follow Up [facility] Specialty Diagnoses / Procedures Referred By Contac t Referred To Contact MR IMAGING Diagnoses Spinal stenosis of lumbar region, unspecified whether neurogenic claudication present Lumbar back pain with radiculopathy affecting right lower extremity Foraminal stenosis of lumbar region Acute right-sided low back pain with right-sided sciatica Lumbar nerve root impingement Procedures MRI LUMBAR SPINE WO IVCON MRI SPINAL CANAL LUMBAR W/O CONTRAST MATERIAL Matthew Lindsey, OLY.WEATHERSTRIP MACHINE OPERATOR [address] [place] [address] [place] [id number] Referral ID Status Reason Start Date Expiration Date V isits Requested Visits Authorized [id number] Denied Auto-Generat ed Referral Patient Cleared - Admin/Chairm an/Director advise to proceed or did not respond 08/29/2022 10/28/2022 1 0 Reason Comments Depression Reason Comments Follow Up Anxiety and depressi on Care Teams (unrecognized sec tion and content) Spa Manager/Esthetician Relationship Specialty Start Date End Date Matthew Lindsey, MUD MILL TENDER.WEATHERSTRIP MACHINE OPERATOR [address] [place], [place] [id number] PCP - General Family Practice 08/17/19 Spa Manager/Esthetician Relationship Specialty Start Date End Date Matthew Lindsey, MUD MILL TENDER.WEATHERSTRIP MACHINE OPERATOR [address] [place], [place] [id number] PCP - General Family Practice 08/17/19 Spa Manager/Esthetician Relationship Specialty Start Date End Date Matthew Lindsey, MUD MILL TENDER.WEATHERSTRIP MACHINE OPERATOR [address] [place] [address] PCP - General Family Practice 08/17/19 Spa Manager/Esthetician Relationship Specialty Start Date End Date Matthew Lindsey, MUD MILL TENDER.WEATHERSTRIP MACHINE OPERATOR [address] [place] [address] PCP - General Family Practice 08/17/19 Spa Manager/Esthetician Relationship Specialty Start Date End Date Matthew Lindsey, MUD MILL TENDER.WEATHERSTRIP MACHINE OPERATOR [address] [place] [address] PCP - General Family Practice 08/17/19 Spa Manager/Esthetician Relationship Specialty Start Date End Date Matthew Lindsey, MUD MILL TENDER.WEATHERSTRIP MACHINE OPERATOR [address] [place] [address] PCP - General Family Practice 08/17/19 Spa Manager/Esthetician Relationship Specialty Start Date End Date Matthew Lindsey, MUD MILL TENDER.WEATHERSTRIP MACHINE OPERATOR [address] [place] [address] PCP - General Family Practice 08/17/19 Spa Manager/Esthetician Relationship Specialty Start Date End Date Matthew Lindsey, MUD MILL TENDER.WEATHERSTRIP MACHINE OPERATOR [address] [place] [address] PCP - General Family Medicine 08/17/19 Spa Manager/Esthetician Relationship Specialty Start Date End Date Matthew Lindsey, MUD MILL TENDER.WEATHERSTRIP MACHINE OPERATOR [address] [place] [address] PCP - General Family Medicine 08/17/19 Spa Manager/Esthetician Relationship Specialty Start Date End Date Matthew Lindsey, MUD MILL TENDER.WEATHERSTRIP MACHINE OPERATOR [address] [place] [address] PCP - General Family Medicine 08/17/19 Spa Manager/Esthetician Relationship Specialty Start Date End Date Matthew Lindsey, MUD MILL TENDER.WEATHERSTRIP MACHINE OPERATOR [address] [place] [address] PCP - General Family Medicine 08/17/19 Spa Manager/Esthetician Relationship Specialty Start Date End Date LisbethElleMatthew, MUD MILL TENDER.WEATHERSTRIP MACHINE OPERATOR [address] [place] [address] PCP - General Family Medicine 08/17/19 Spa Manager/Esthetician Relationship Specialty Start Date End Date LisbethMatthew, MUD MILL TENDER.WEATHERSTRIP MACHINE OPERATOR [address] [place] [address] PCP - General Family Medicine 08/17/19 Spa Manager/Esthetician Relationship Specialty Start Date End Date Lisbeth, Matthew, MUD MILL TENDER.WEATHERSTRIP MACHINE OPERATOR [address] [place] [address] PCP - General Family Medicine 08/17/19 Spa Manager/Esthetician Relationship Specialty Start Date End Date Lisbeth, Matthew, MUD MILL TENDER.WEATHERSTRIP MACHINE OPERATOR [address] [place] [address] PCP - General Family Medicine 08/17/19 Spa Manager/Esthetician Relationship Specialty Start Date End Date LisbethAlbaah, MUD MILL TENDER.WEATHERSTRIP MACHINE OPERATOR [address] [place] [address] PCP - General Family Medicine 08/17/19 Spa Manager/Esthetician Relationship Specialty Start Date End Date LisbethAlbaah, MUD MILL TENDER.WEATHERSTRIP MACHINE OPERATOR [address] [place] [address] PCP - General Family Medicine 08/17/19 Spa Manager/Esthetician Relationship Specialty Start Date End Date Lisbeth, Matthew, MUD MILL TENDER.WEATHERSTRIP MACHINE OPERATOR [address] [place] [address] PCP - General Family Medicine 08/17/19 Spa Manager/Esthetician Relationship Specialty Start Date End Date Lisbeth, Matthew, MUD MILL TENDER.WEATHERSTRIP MACHINE OPERATOR [address] [place] [address] PCP - General Family Medicine 08/17/19 Spa Manager/Esthetician Relationship Specialty Start Date End Date [facility], Matthew, MUD MILL TENDER.WEATHERSTRIP MACHINE OPERATOR [address] [place] [address] PCP - General Family Medicine 08/17/19 Spa Manager/Esthetician Relationship Specialty Start Date End Date [facility], Matthew, MUD MILL TENDER.WEATHERSTRIP MACHINE OPERATOR [address] [place] [address] PCP - General Family Medicine 08/17/19 Spa Manager/Esthetician Relationship Specialty Start Date End Date [facility], Matthew, MUD MILL TENDER.WEATHERSTRIP MACHINE OPERATOR [address] [place] [address] PCP - General Family Medicine 08/17/19 Spa Manager/Esthetician Relationship Specialty Start Date End Date [facility], Matthew, MUD MILL TENDER.WEATHERSTRIP MACHINE OPERATOR [address] [place] [address] PCP - General Family Medicine 08/17/19 Spa Manager/Esthetician Relationship Specialty Start Date End Date [facility], MUD MILL TENDER.WEATHERSTRIP MACHINE OPERATOR [address] [place] [address] PCP - General Family Medicine 08/17/19 Spa Manager/Esthetician Relationship Specialty Start Date End Date [facility], MUD MILL TENDER.WEATHERSTRIP MACHINE OPERATOR [address] [place] [address] PCP - General Family Medicine 08/17/19 Spa Manager/Esthetician Relationship Specialty Start Date End Date [facility], MUD MILL TENDER.WEATHERSTRIP MACHINE OPERATOR [address] [place] [address] PCP - General Family Medicine 08/17/19 Spa Manager/Esthetician Relationship Specialty Start Date End Date [facility], MUD MILL TENDER.WEATHERSTRIP MACHINE OPERATOR [address] [place] [address] PCP - General Family Medicine 08/17/19 Spa Manager/Esthetician Relationship Specialty Start Date End Date [facility], MUD MILL TENDER.WEATHERSTRIP MACHINE OPERATOR [address] [place] [address] PCP - General Family Medicine 08/17/19 Spa Manager/Esthetician Relationship Specialty Start Date End Date [facility], MUD MILL TENDER.WEATHERSTRIP MACHINE OPERATOR [address] [place] [address] PCP - General Family Medicine 08/17/19 Spa Manager/Esthetician Relationship Specialty Start Date End Date [facility], MUD MILL TENDER.WEATHERSTRIP MACHINE OPERATOR [address] [place] [address] PCP - General Family Medicine 08/17/19 Spa Manager/Esthetician Relationship Specialty Start Date End Date [facility], MUD MILL TENDER.WEATHERSTRIP MACHINE OPERATOR [address] [place] [address] PCP - General Family Medicine 08/17/19 Spa Manager/Esthetician Relationship Specialty Start Date End Date [facility], MUD MILL TENDER.WEATHERSTRIP MACHINE OPERATOR [address] [place] [address] PCP - General Family Medicine 08/17/19 Spa Manager/Esthetician Relationship Specialty Start Date End Date [facility], MUD MILL TENDER.WEATHERSTRIP MACHINE OPERATOR [address] [place] [address] PCP - General Family Medicine 08/17/19 Spa Manager/Esthetician Relationship Specialty Start Date End Date [facility], MUD MILL TENDER.WEATHERSTRIP MACHINE OPERATOR [address] [place] [address] PCP - General Family Medicine 08/17/19 Spa Manager/Esthetician Relationship Specialty Start Date End Date LisbethMatthew, MUD MILL TENDER.WEATHERSTRIP MACHINE OPERATOR [address] [place] [address] PCP - General Family Medicine 08/17/19 Spa Manager/Esthetician Relationship Specialty Start Date End Date Jay Lazo [address] [place] [address] #[place] [address] PCP - General Family Medicine 09/20/22 Spa Manager/Esthetician Relationship Specialty Start Date End Date LisbethMatthew, MUD MILL TENDER.WEATHERSTRIP MACHINE OPERATOR [address] [place] [address] PCP - General Family Medicine 08/17/19 Spa Manager/Esthetician Relationship Specialty Start Date End Date Jay Lazo [address] [place] [address] #[place] [address] PCP - General Family Medicine 09/20/22 Spa Manager/Esthetician Relationship Specialty Start Date End Date LisbethMatthew, MUD MILL TENDER.WEATHERSTRIP MACHINE OPERATOR [address] [place] [address] PCP - General Family Medicine 08/17/19 Spa Manager/Esthetician Relationship Specialty Start Date End Date LisbethMatthew, MUD MILL TENDER.WEATHERSTRIP MACHINE OPERATOR [address] [place] [address] PCP - General Family Medicine 08/17/19 Spa Manager/Esthetician Relationship Specialty Start Date End Date LisbethMatthew, MUD MILL TENDER.WEATHERSTRIP MACHINE OPERATOR [address] [place] [address] PCP - General Family Medicine 08/17/19 Spa Manager/Esthetician Relationship Specialty Start Date End Date LisbethMatthew, MUD MILL TENDER.WEATHERSTRIP MACHINE OPERATOR [address] [place] [address] PCP - General Family Medicine 08/17/19 Spa Manager/Esthetician Relationship Specialty Start Date End Date Matthew Lindsey, MUD MILL TENDER.WEATHERSTRIP MACHINE OPERATOR [address] [place] [address] PCP - General Family Medicine 08/17/19 Spa Manager/Esthetician Relationship Specialty Start Date End Date LisbethMatthew zazueta, MUD MILL TENDER.WEATHERSTRIP MACHINE OPERATOR [address] [place], [place] [address] PCP - General Family Medicine 08/17/19 Spa Manager/Esthetician Relationship Specialty Start Date End Date Matthew Lindsey, MUD MILL TENDER.WEATHERSTRIP MACHINE OPERATOR [address] [place], [place] [address] PCP - General Family Medicine 08/17/19 FOR RECORDS PERTAINING TO PATIENTS WHO ARE OR HAVE BEEN ENROLLED IN A CHEMICAL DEPENDENCY/SUBSTANCEABUSE PROGRAM, SOME INFORMATION MAY BE OMITTED. This clinical summary was aggregated from multiple sources. Caution should be exercised in using it in the provision of clinical care. This summary normalizes information from multiple sources, and as a consequence, information in this document may materially change the coding, format and clinical context of patient data. In addition, data may be omitted in some cases. CLINICAL DECISIONS SHOULD BE BASED ON THE PRIMARY CLINICAL RECORDS. [facility]. provides no warranty or guarantee of the accuracy or completeness of information in this document.
[2023-04-07 13:30] LABS: ALB/GLOB Ratio 0.8 RATIO (0.9-2.4); AST(SGOT) 12 U/L (15-37); Alanine Aminotransfer ALT/SGPT 22 U/L (13-56); Albumin, Serum 3.4 g/dL (3.2-5.0); Alkaline Phosphatase 102 U/L (45-117); Anion Gap 3 (5-15); BUN 16 mg/dL (7-18); Calcium,Total 9.4 mg/dL (8.5-10.1); Chloride 110 mmol/L (98-107); Creatinine, Serum 0.52 mg/dL (0.55-1.02); EST Glomerular Filtration Rate 143 mL/min (>60); Est Glom Filt Rate - Afr Amer 173 mL/min (>60); Estimated Creatinine Clearance 202.72 ml/min; Globulin 4.3 g/dL (2.2-4.2); Glucose 99 mg/dL (74-106); Lipase 22 U/L (13-75); Potassium 3.7 mmol/L (3.5-5.1); Protein, Total 7.7 g/dL (6.4-8.2); Sodium Level 139 mmol/L (136-145)
[2023-04-07 13:35] LABS: Internal QC Validated? YES +Cl - CLEAR BKGD; Pregnancy, Serum, hCG Quali. NEGATIVE Negative
[2023-04-07 14:39] LABS: Bacteria 0 SEEN /hpf (None Seen); Mucous, Urine 0 SEEN /hpf (<or=2+); Red Blood Cells-Urine 0 SEEN /hpf (0-5); White Blood Cells 0 SEEN /hpf (0-5)
[2023-04-07 14:42] LABS: Color, Urine Yellow (Yellow); Glucose, Dipstick Normal (Normal); Ketone-Dipstick 15 mg/dl (Negative); Leukocyte Esterase-Dipstick Negative /ul (Negative); Nitrite-Dipstick Negative (Negative); Occult Blood-Urine Negative /ul (Negative); Protein-Dipstick 30 mg/dl (Negative); Specific Gravity, Urine 1.025 (1.002-1.030); Urine Bilirubin Dipstick Negative (Negative); Urine Clarity Clear (Clear); Urine Urobilinogen Normal (Normal)
[2023-04-07 14:48] LABS: Squamous Epithelial Cells - UA 0-5 SEEN /hpf (5-10)
[2023-04-07 14:51] VITALS: BP 132/77; PULSE 78; RESP 18; O2SAT 98
== END 2023-04-07 15:05 | disposition home or self-care (01) ==
PROVIDERS: Nurse Practitioner; Emergency Provider Emergency Medicine; PCP Nurse Practitioner Family; Visit Provider Emergency Medicine
DX: R11.2 Nausea with vomiting, unspecified (principal); F41.9 Anxiety disorder, unspecified; G89.29 Other chronic pain; F32.A Depression, unspecified; F12.90 Cannabis use, unspecified, uncomplicated; F17.210 Nicotine dependence, cigarettes, uncomplicated; M54.9 Dorsalgia, unspecified; R10.9 Unspecified abdominal pain; Z98.51 Tubal ligation status
CPT/HCPCS: 80053; 81001; 83690; 84703; 85025; 96361; 96372; 96374; 96375; 99283; J7030; A4216; J2405

== ENCOUNTER 2023-08-31 16:10 | Emergency (ER) | payer MEDICAID, SELFPAY ==
[2023-08-31 16:10] VITALS: BP 149/100; PULSE 105; RESP 18; O2SAT 99
[2023-08-31 16:11] VITALS: BP 149/100; PULSE 105; RESP 16; TEMP 36.3; O2SAT 99; BMI 38.3
--- NOTE | 2023-08-31 16:19 | CT_ITS ---
EXAM: CT ABDOMEN AND PELVIS WITHOUT INTRAVENOUS CONTRAST CLINICAL INDICATION: left flank pain TECHNIQUE: Helically acquired images were obtained of the abdomen and pelvis without intravenous contrast. This CT exam was performed using one or more of the following dose reduction techniques: automated exposure control, adjustment of the mA and/or kV according to patient size, and/or use of iterative reconstruction technique. COMPARISON: 09/10/2022 CT abdomen pelvis and pelvic ultrasound. FINDINGS: LOWER THORAX: No significant abnormality. Lung bases are clear. No cardiomegaly. No significant pericardial effusion. ABDOMEN: LIVER: No significant abnormality. Homogeneous. GALLBLADDER AND BILE DUCTS: Cholelithiasis without secondary signs of cholecystitis. No intra- or extrahepatic biliary ductal dilation. PANCREAS: No significant abnormality. No focal cystic mass. SPLEEN: No significant abnormality. Normal size without focal cystic or solid mass. ADRENALS: No significant abnormality. No nodules. KIDNEYS AND URETERS: Mild to moderate left-sided hydroureteronephrosis secondary to a 2 mm stone at the left ureterovesicular junction. Normal renal size and position. STOMACH AND BOWEL: No significant abnormality. No stomach or bowel distention. No focal inflammatory change. PELVIS: APPENDIX: No evidence of acute appendicitis. BLADDER: No significant abnormality. REPRODUCTIVE: Normal as visualized. No mass. ABDOMEN and PELVIS: INTRAPERITONEAL SPACE: No significant abnormality. No ascites or other fluid collection. No free air. BONES/JOINTS: No significant abnormality. No suspicious lytic or blastic abnormality. SOFT TISSUES: Small fat-containing umbilical hernia. VASCULATURE: No significant abnormality. Abdominal aorta is non-dilated. LYMPH NODES: No significant abnormality. No enlarged lymph nodes. CT/Abdomen/Pelvis without Cont IMPRESSION: 1. Mild to moderate left-sided hydroureteronephrosis secondary to a 2 mm stone at the left ureterovesicular junction. 2. Cholelithiasis without secondary signs of cholecystitis. Electronically Signed: Andres De La Cruz DO at 17:18 EDT ,
--- NOTE | 2023-08-31 16:22 | EDS_ITS ---
HPI <ELIN Santamaria - Last Filed: 08/31/23 17:44> History of Present Illness Chief Complaint: Flank Pain Narrative Narrative: 37-year-old female states about an hour ago she developed sudden onset left flank pain is starting to radiate towards left groin. She has nausea but no vomiting. She felt like she had to use the bathroom and sat down and had a bowel movement that was small and round and had the consistency of a blueberry. No melena or hematochezia. She has been constipated this week with pellet-like bowel movements and also has had a few days of urinary frequency and bladder pressure. No fever or chills. No history of kidney stones or abdominal surgeries. FORMERLY [facility], [facility]–1983 <ELIN Santamaria - Last Filed: 08/31/23 17:44> [facility], [facility] Medical History Anxiety and depression Hx of gastroesophageal reflux (GERD) Neuropathy Home Medications ?Medication ?Instructions ?Recorded ?Last Taken ?Type gabapentin 300 mg capsule 300 mg PO DAILY 06/02/20 08/31/23 History ibuprofen 800 mg tablet 800 mg PO DAILY 07/14/22 Unknown History omeprazole 20 mg capsule,delayed 20 mg PO DAILY 07/14/22 08/31/23 History release cefuroxime axetil 500 mg tablet 500 mg PO BID 7 days #14 tabs 08/31/23 Unknown Rx dextroamphetamine-amphetamine 20 1 tab PO DAILY 08/31/23 08/31/23 History mg tablet escitalopram oxalate 10 mg tablet 10 mg PO DAILY 08/31/23 08/31/23 History escitalopram oxalate 20 mg tablet 20 mg PO DAILY 08/31/23 08/31/23 History gabapentin 600 mg tablet 600 mg PO QHS 08/31/23 08/30/23 History ketorolac 10 mg tablet 10 mg PO Q8H PRN pain 5 days #15 08/31/23 Unknown Rx tabs methylphenidate HCl 54 mg 54 mg PO DAILY 08/31/23 08/31/23 History tablet,extended release 24 hr ondansetron 4 mg disintegrating 4 mg PO Q8H PRN PRN Nausea #10 tabs 08/31/23 Unknown Rx tablet Allergy/AdvReac Type Severity Reaction Status Date / Time No Known Allergies Allergy Verified 08/31/23 16:12 Social History Smoking Status: Current every day smoker tobacco type: cigarettes ROS <ELIN Santamaria - Last Filed: 08/31/23 17:44> ROS ED ROS Narrative Constitutional: Negative for fever, chills, malaise. CVS: Negative for chest pain. Respiratory: Negative for shortness of breath. GI: Negative for abdominal pain, nausea. Negative for vomiting, melena, hematochezia. : Positive for frequency. EXAM <ELIN Santamaria - Last Filed: 08/31/23 17:44> Physical Exam Narrative Exam Narrative: CONST: Patient leaning over the bed crying appears uncomfortable. EYES: Normal inspection. NECK: Normal inspection. RESP: No respiratory distress, CTAB. CVS: Regular rate and rhythm, no murmur, no gallop. ABD: Soft with mild left lower quadrant tenderness, no guarding or rebound, nondistended, no hepatosplenomegaly. Back: Normal inspection, left CVA tenderness. SKIN: Color normal, no rash, warm, dry, intact. EXTREMITIES: Normal appearance, no pedal edema. NEURO: Alert and answering questions appropriately. PSYCH: Normal affect. Const Vital Signs: 08/31/23 16:10 08/31/23 16:11 Temperature 97.3 F L Temperature Source Temporal Pulse Rate 105 H 105 H Respiratory Rate 18 16 Blood Pressure 149/100 H 149/100 H Blood Pressure Mean 116 116 Pulse Ox 99 99 Oxygen Delivery Method Room Air Room Air <Dr. Evans Jimenez MD - Last Filed: 08/31/23 16:58> Physical Exam Const Vital Signs: 08/31/23 16:10 08/31/23 16:11 Temperature 97.3 F L Temperature Source Temporal Pulse Rate 105 H 105 H Respiratory Rate 18 16 Blood Pressure 149/100 H 149/100 H Blood Pressure Mean 116 116 Pulse Ox 99 99 Oxygen Delivery Method Room Air Room Air MDM <ELIN Santamaria - Last Filed: 08/31/23 17:44> MDM MDM Narrative Medical decision making narrative: History from: Patient and significant other Differential: Kidney stone, pyelonephritis Patient has acute onset left flank pain. She appears uncomfortable but nontoxic. Patient was mildly hypertensive and tachycardic immunopositive otherwise stable vital signs. Mildly tender left lower abdomen and left flank. CBC and BMP are unremarkable. Urinalysis is contaminated but has signs of infection with positive nitrates and WBCs. Culture sent. test is negative. CT scan shows left-sided hydronephrosis secondary to 2 mm stone in the UVJ. She was treated with IV fluids, Toradol and Zofran with improvement. She declined morphine as she has a history of drug abuse. She states she feels comfortable going home with p.o. Toradol, Zofran, and cefuroxime for the complicated UTI. She can also take Tylenol. Return precautions discussed and she was discharged in stable condition. I have personally performed a face to face assessment of the patient and have reviewed the JANELL Note. I performed a substantive portion of the visit including all aspects of the following. My chavez findings include: History is 37-year-old female sudden onset left flank pain about an hour ago radiating to her left groin region. No prior kidney stones thinks she might of had 1 1 time on a CAT scan that was seen that was in her kidney but she never had pain like this. Denies any recent dysuria. No hematuria. No fever. Exam is [37-year-old female lying on all fours. Vital signs are stable afebrile. HEENT exam unremarkable. Lungs clear. Heart regular rhythm rate about 100 no murmur. Abdomen soft, nontender, nondistended normal bowel sounds no peritoneal signs. No right upper or right lower quadrant tenderness. No distention or obstruction. Moving all 4 extremities. Neurovascular intact. Normal strength. She is awake and alert.] Medical Decision Making [37-year-old with left flank pain possible kidney stone. Treated with IV morphine, Toradol and Zofran. CAT scan and labs are pending.] Other additions or changes: [None] Lab Data Labs: Laboratory Results - last 24 hr 08/31/23 08/31/23 16:30 16:50 WBC 10.7 RBC 5.07 Hgb 12.3 Hct 39.5 MCV 77.9 L MCH 24.3 L MCHC 31.1 L RDW Std Deviation 43.8 RDW Coeff of Glynn 15.5 H Plt Count 392 MPV 10.0 Immature Gran % (Auto) 0.400 Neut % (Auto) 67.1 Lymph % (Auto) 24.2 Hart % (Auto) 6.2 Eos % (Auto) 1.6 Baso % (Auto) 0.5 Absolute Neuts (auto) 7.2 Absolute Lymphs (auto) 2.60 Nucleated RBC % 0 Sodium 139 Potassium 3.5 Chloride 109 H Carbon Dioxide 24.0 Anion Gap 6 BUN 17 Creatinine 0.72 Estim Creat Clear Calc 138.85 Est GFR (MDRD) Af Amer 117 Est GFR (MDRD) Non-Af 97 BUN/Creatinine Ratio 23.6 H Glucose 100 Calcium 9.6 Serum , Qual NEGATIVE Urine Color SEE COMMENT BELOW Urine Clarity Cloudy Urine pH 5.0 Ur Specific [place] 1.020 Urine Protein 30 H Urine Glucose (UA) Normal Urine Ketones Negative Urine Occult Blood 150 H Urine Nitrite Positive H Urine Bilirubin 6 H Urine Urobilinogen 8 H Ur Leukocyte Esterase 500 H Urine RBC 10-25 SEEN Urine WBC 50-100 SEEN Ur Squamous Epith Cells 5-10 SEEN Amorphous Sediment 1+ URATE Urine Bacteria RARE Urine Mucus 0 SEEN Radiography Diagnostic Testing: Clinical Impression(s) from Imaging Studies Abdomen/Pelvis CT 08/31/23 16:19 IMPRESSION: 1. Mild to moderate left-sided hydroureteronephrosis secondary to a 2 mm stone at the left ureterovesicular junction. 2. Cholelithiasis without secondary signs of cholecystitis. Electronically Signed: Andres De La Cruz DO at 17:18 EDT , <Dr. Evans Jimenez MD - Last Filed: 08/31/23 16:58> [facility] Narrative Medical decision making narrative: I have personally performed a face to face assessment of the patient and have reviewed the JANELL Note. I performed a substantive portion of the visit including all aspects of the following. My chavez findings include: History is 37-year-old female sudden onset left flank pain about an hour ago radiating to her left groin region. No prior kidney stones thinks she might of had 1 1 time on a CAT scan that was seen that was in her kidney but she never had pain like this. Denies any recent dysuria. No hematuria. No fever. Exam is [37-year-old female lying on all fours. Vital signs are stable afebrile. HEENT exam unremarkable. Lungs clear. Heart regular rhythm rate about 100 no murmur. Abdomen soft, nontender, nondistended normal bowel sounds no peritoneal signs. No right upper or right lower quadrant tenderness. No distention or obstruction. Moving all 4 extremities. Neurovascular intact. Normal strength. She is awake and alert.] Medical Decision Making [37-year-old with left flank pain possible kidney stone. Treated with IV morphine, Toradol and Zofran. CAT scan and labs are pending.] Other additions or changes: [None] History & Record Review Discussion w/independent historian: Patient and Family Additional record(s) reviewed:: Prior inpatient record, Prior outpatient record, Prior ED visit and Prior labs Lab Data Attestation: I reviewed the patient's lab results. Labs: Laboratory Results - last 24 hr 08/31/23 08/31/23 16:30 16:50 WBC 10.7 RBC 5.07 Hgb 12.3 Hct 39.5 MCV 77.9 L MCH 24.3 L MCHC 31.1 L RDW Std Deviation 43.8 RDW Coeff of Glynn 15.5 H Plt Count 392 MPV 10.0 Immature Gran % (Auto) 0.400 Neut % (Auto) 67.1 Lymph % (Auto) 24.2 Hart % (Auto) 6.2 Eos % (Auto) 1.6 Baso % (Auto) 0.5 Absolute Neuts (auto) 7.2 Absolute Lymphs (auto) 2.60 Nucleated RBC % 0 Sodium 139 Potassium 3.5 Chloride 109 H Carbon Dioxide 24.0 Anion Gap 6 BUN 17 Creatinine 0.72 Estim Creat Clear Calc 138.85 Est GFR (MDRD) Af Amer 117 Est GFR (MDRD) Non-Af 97 BUN/Creatinine Ratio 23.6 H Glucose 100 Calcium 9.6 Serum , Qual NEGATIVE Urine Color SEE COMMENT BELOW Urine Clarity Cloudy Urine pH 5.0 Ur Specific [place] 1.020 Urine Protein 30 H Urine Glucose (UA) Normal Urine Ketones Negative Urine Occult Blood 150 H Urine Nitrite Positive H Urine Bilirubin 6 H Urine Urobilinogen 8 H Ur Leukocyte Esterase 500 H Urine RBC 10-25 SEEN Urine WBC 50-100 SEEN Ur Squamous Epith Cells 5-10 SEEN Amorphous Sediment 1+ URATE Urine Bacteria RARE Urine Mucus 0 SEEN Radiography Diagnostic Testing: Clinical Impression(s) from Imaging Studies Abdomen/Pelvis CT 08/31/23 16:19 IMPRESSION: 1. Mild to moderate left-sided hydroureteronephrosis secondary to a 2 mm stone at the left ureterovesicular junction. 2. Cholelithiasis without secondary signs of cholecystitis. Electronically Signed: Andres De La Cruz DO at 17:18 EDT , Discharge Plan Triage Chief Complaint: Flank Pain ED Midlevel Provider: Elizabeth Noonan ED Provider: Evans Jimenez Dx/Rx/DC Orders Clinical Impression: Kidney stone on left side, Hydronephrosis of left kidney, Complicated urinary tract infection Instructions: Urinary Tract Infections in Women, ED Kidney Stone with Pain Prescriptions: New ondansetron 4 mg tablet,disintegrating 4 mg PO Q8H PRN PRN (Reason: Nausea) Qty: 10 0RF ketorolac 10 mg tablet 10 mg PO Q8H PRN (Reason: pain) 5 Days Qty: 15 0RF cefuroxime axetil 500 mg tablet 500 mg PO BID 7 Days Qty: 14 0RF No Action gabapentin 300 MG capsule 300 mg PO DAILY omeprazole 20 mg capsule,delayed release(DR/EC) 20 mg PO DAILY ibuprofen 800 MG tablet 800 mg PO DAILY gabapentin 600 mg tablet 600 mg PO QHS methylphenidate HCl 54 mg tablet extended release 24hr 54 mg PO DAILY escitalopram oxalate 20 mg tablet 20 mg PO DAILY escitalopram oxalate 10 mg tablet 10 mg PO DAILY dextroamphetamine-amphetamine 20 mg tablet 1 tab PO DAILY Primary Care Provider: Sushma Lindsey NP Referrals: Sushma Lindsey NP, [facility] [Primary Care Provider] - Activity Restrictions/Additional Instructions: Do not take your other anti-inflammatory if you are using ketorolac. You can also take Tylenol 1000 mg every 6 hours for pain. Zofran is as needed for nausea and vomiting. Complete all the antibiotics. Return if you develop a fever, symptoms worsen, or you have inability to urinate. Print Language: Hebrew Disposition Disposition: Home, Self Care
[2023-08-31] MEDS: Ketorolac 30 MG/ML Syringe IV (16:29)
[2023-08-31] MEDS: Ondansetron 4 MG/2 ML Vial IV (16:29)
[2023-08-31 16:58] LABS: Absolute Neutrophil Count 7.2 X10^3/uL (2.0-7.7); Basophil# 0.05 X10^3/uL; Basophil% 0.5 % (0-1); Eosinophil# 0.17 X10^3/uL; Eosinophils% 1.6 % (0-5); Hematocrit 39.5 % (37-47); Hemoglobin 12.3 g/dL (12.0-15.0); Lymphocyte % 24.2 % (19-41); Mean Corp Hgb Conc 31.1 g/dL (32-36); Mean Corpuscular Hgb 24.3 pg (27.0-32.0); Mean Corpuscular Volume 77.9 fL (81-99); Monocyte# 0.67 X10^3/uL; Monocyte% 6.2 % (0-10); NRBC Flagged by Analyzer 0 % (0-5); Neutrophil # 7.21 X10^3/uL (2.7-7.7); Neutrophil % 67.1 % (47-70); Platelet Count 392 K/mm3 (150-450); RBC Distribution Width CV 15.5 % (11.6-14.6); RBC Distribution Width SD 43.8 fl (35.1-43.9); Red Blood Count 5.07 M/mm3 (4.2-5.4); White Blood Count 10.7 K/mm3 (4.4-11.0)
[2023-08-31 16:59] LABS: Mucous, Urine 0 SEEN /hpf (<or=2+)
[2023-08-31 17:05] LABS: Glucose, Dipstick Normal (Normal); Ketone-Dipstick Negative (Negative); Leukocyte Esterase-Dipstick 500 /ul (Negative); Nitrite-Dipstick Positive (Negative); Occult Blood-Urine 150 /ul (Negative); Protein-Dipstick 30 mg/dl (Negative); Urine Clarity Cloudy (Clear); Urine Urobilinogen 8 mg/dl (Normal)
[2023-08-31 17:06] LABS: Color, Urine SEE COMMENT BELOW (Yellow); Urine Bilirubin Dipstick 6 mg/dL (Negative)
[2023-08-31 17:12] LABS: Anion Gap 6 (5-15); BUN 17 mg/dL (7-18); BUN/Creat Ratio 23.6 RATIO (10-20); Calcium,Total 9.6 mg/dL (8.5-10.1); Chloride 109 mmol/L (98-107); Creatinine, Serum 0.72 mg/dL (0.55-1.02); EST Glomerular Filtration Rate 97 mL/min (>60); Est Glom Filt Rate - Afr Amer 117 mL/min (>60); Estimated Creatinine Clearance 138.85 ml/min; Glucose 100 mg/dL (74-106); Internal QC Validated? YES +Cl - CLEAR BKGD; Potassium 3.5 mmol/L (3.5-5.1); Pregnancy, Serum, hCG Quali. NEGATIVE Negative; Sodium Level 139 mmol/L (136-145)
[2023-08-31 17:16] LABS: Red Blood Cells-Urine 10-25 SEEN /hpf (0-5); White Blood Cells 50-100 SEEN /hpf (0-5)
[2023-08-31 17:17] LABS: Amorphous Sediment 1+ URATE; Bacteria RARE /hpf (None Seen); Squamous Epithelial Cells - UA 5-10 SEEN /hpf (5-10)
[2023-08-31] MEDS: Acetaminophen 500 MG Tablet 1000 MG PO (17:58)
[2023-08-31] MEDS: cefuroxime axetiL 250 MG TABLET 500 MG PO (17:59)
[2023-08-31 18:10] VITALS: BP 132/96; PULSE 99; RESP 16; TEMP 36.7; O2SAT 98
== END 2023-08-31 18:20 | disposition home or self-care (01) ==
PROVIDERS: Physician Assistant; Emergency Provider Emergency Medicine; PCP Nurse Practitioner Family; Visit Provider Emergency Medicine
DX: N13.6 Pyonephrosis (principal); F17.210 Nicotine dependence, cigarettes, uncomplicated; K21.9 Gastro-esophageal reflux disease without esophagitis; Z79.899 Other long term (current) drug therapy; K80.20 Calculus of gallbladder without cholecystitis without obstruction
CPT/HCPCS: 74176; 80048; 81001; 84703; 85025; 87086; 87088; 87186; 96374; 96375; 99284; A4216; J2405

== ENCOUNTER 2023-12-06 06:48 | Emergency (ER) | payer MEDICAID, SELFPAY ==
[2023-12-06 06:48] VITALS: BP 111/83; PULSE 61; RESP 18; TEMP 36.5; O2SAT 98; BMI 38.9
--- NOTE | 2023-12-06 07:25 | ED.VIS.GI ---
HPI HPI - GI History of Present Illness Chief Complaint: Abd Pain Informant: patient Narrative Narrative: 38-year-old female mid lower abdominal pain for a couple hours. It seems to wax and wane. Started at the same time that she felt like she really needed to have a bowel movement but was unable. This has been causing her to have some vomiting. No blood. States that she has waxing and waning constipation chronically but has not had pain like this with it in the past. She has been having urinary incontinence off and on for the past several weeks, that was no different this morning, she saw a specialist for it. [facility] Medical History Hx of gastroesophageal reflux (GERD) Anxiety and depression Neuropathy Home Medications ?Medication ?Instructions ?Recorded ?Last Taken ?Type gabapentin 300 mg capsule 300 mg PO DAILY 06/02/20 08/31/23 History ibuprofen 800 mg tablet 800 mg PO DAILY 07/14/22 Unknown History omeprazole 20 mg capsule,delayed 20 mg PO DAILY 07/14/22 08/31/23 History release escitalopram oxalate 10 mg tablet 10 mg PO DAILY 08/31/23 08/31/23 History escitalopram oxalate 20 mg tablet 20 mg PO DAILY 08/31/23 08/31/23 History gabapentin 600 mg tablet 600 mg PO QHS 08/31/23 08/30/23 History methylphenidate HCl 54 mg 54 mg PO DAILY 08/31/23 08/31/23 History tablet,extended release 24 hr ondansetron 4 mg disintegrating 4 mg PO Q8H PRN PRN Nausea #10 tabs 08/31/23 Unknown Rx tablet Allergy/AdvReac Type Severity Reaction Status Date / Time No Known Allergies Allergy Verified 08/31/23 16:12 Family History no significant family his Social History Smoking Status: Current every day smoker tobacco type: cigarettes ROS ROS ED Constitutional Constitutional ED: Denies chills or fever(s) Eyes Eyes: Denies change in vision or diplopia ENT ENT ED: Denies rhinorrhea or sore throat Cardiovascular Cardiovascular: Denies chest pain or palpitations Respiratory/Chest Respiratory/Chest: Denies cough or dyspnea Gastrointestinal Gastrointestinal: Reports abdominal pain, nausea and vomiting; Denies diarrhea Genitourinary Genitourinary ED: Reports urinary incontinence; Denies dysuria or hematuria Musculoskeletal Musculoskeletal: Denies back pain or neck pain Integumentary Denies abscess or rash Neurologic Neurologic: Denies headache(s), paresthesias or weakness Psychiatric Psychiatric: Denies suicidal thoughts EXAM Physical Exam Const Vital Signs: 12/06/23 06:48 Temperature 97.7 F L Temperature Source Temporal Pulse Rate 61 Respiratory Rate 18 Blood Pressure 111/83 H Blood Pressure Mean 92 Pulse Ox 98 Oxygen Delivery Method Room Air Positive well nourished, well developed and obese Constitutional Narrative: Uncomfortable but NAD General Appearance ED: well developed and NAD Nutritional Appearance: obese HEENT Reports moist mucous membranes normocephalic and atraumatic Eyes PERRL and EOMs intact bilaterally Neck full ROM and supple Resp normal respiratory effort and clear to auscultation bilaterally Cardio regular rate, regular rhythm and no murmurs GI non-distended GI Narrative: Very mild suprapubic and left lower quadrant tenderness no guarding or rebound no other areas of tenderness. Auscultation: normoactive bowel sounds Palpation: soft Back/Spine no CVA tenderness General Back: other FROM Extremity normal to inspection General Extremety ED: Negative for edema, pulses abnormal or tenderness General Extremity: Negative for edema or pulses abnormal Neuro oriented x3, CN's II-XII intact bilaterally and no sensory deficits noted Sensorium / Orientation: awake and alert Motor Exam: strength 5/5 throughout Skin no rashes or lesions noted and no wounds MDM MDM MDM Narrative Medical decision making narrative: Certainly this could be an unusual presentation of kidney stone or ectopic although she states she has had her tubes removed making the latter less likely, or other GI issues such as bowel obstruction or functional GI painful problem, but given her symptoms of feeling like she needs to have a bowel movement and is unable, the differential includes constipation with bowel spasm. She states she feels miserable with the pain, so I offered workup but offered an enema first if she wanted to try it, because of this was constipation and she felt like that was a possibility that could fix the problem quicker. She was amenable. Soapsuds enema was done and she produced a large hard bowel movement, and she states her pain resolved quickly thereafter and she feels much better. Therefore although we considered other testing we both agree that it is not necessary right now. She certainly can return if she has recurrence, but I think this was temporary constipation with bowel/colonic spasm and she is in agreement. I had her give us a urine sample in case the enema did not help. It shows positive nitrite and a little bit of leukocyte but no pyuria, and there are 5-10 epithelials. I think probably contaminated and not truly infected but she is having some chronic symptoms that are not acute am sending a culture but no treatment right now. Lab Data Attestation: I reviewed the patient's lab results. Labs: Laboratory Results - last 24 hr 12/06/23 07:45 Urine Color Yellow Urine Clarity Sl. Cloudy Urine pH 6.5 Ur Specific [place] 1.020 Urine Protein 30 H Urine Glucose (UA) Normal Urine Ketones 5 H Urine Occult Blood 25 H Urine Nitrite Positive H Urine Bilirubin 1 H Urine Urobilinogen 4 H Ur Leukocyte Esterase 100 H Urine RBC 0 SEEN Urine WBC 0-5 SEEN Ur Squamous Epith Cells 5-10 SEEN Urine Bacteria 2+ Urine Mucus 2+ Urine Test Negative Discharge Plan Triage Chief Complaint: Abd Pain ED Provider: Palomo Jeffries Dx/Rx/DC Orders Clinical Impression: Constipation, Lower abdominal pain Instructions: ED Constipation (Adult) Prescriptions: No Action gabapentin 300 MG capsule 300 mg PO DAILY omeprazole 20 mg capsule,delayed release(DR/EC) 20 mg PO DAILY ibuprofen 800 MG tablet 800 mg PO DAILY gabapentin 600 mg tablet 600 mg PO QHS methylphenidate HCl 54 mg tablet extended release 24hr 54 mg PO DAILY escitalopram oxalate 20 mg tablet 20 mg PO DAILY escitalopram oxalate 10 mg tablet 10 mg PO DAILY ondansetron 4 mg tablet,disintegrating 4 mg PO Q8H PRN PRN (Reason: Nausea) Qty: 10 0RF Primary Care Provider: Sushma Lindsey NP Referrals: Sushma Lindsey NP, [facility] [Primary Care Provider] - Print Language: Czech Disposition Disposition: Home, Self Care
[2023-12-06 08:00] LABS: Red Blood Cells-Urine 0 SEEN /hpf (0-5)
[2023-12-06 08:13] LABS: Color, Urine Yellow (Yellow); Glucose, Dipstick Normal (Normal); Ketone-Dipstick 5 mg/dl (Negative); Leukocyte Esterase-Dipstick 100 /ul (Negative); Nitrite-Dipstick Positive (Negative); Occult Blood-Urine 25 /ul (Negative); Protein-Dipstick 30 mg/dl (Negative); Urine Clarity Sl. Cloudy (Clear); Urine Urobilinogen 4 mg/dl (Normal); Urine pH 6.5 (5.0 - 8.0)
[2023-12-06 08:14] LABS: Urine Bilirubin Dipstick 1 mg/dL (Negative)
[2023-12-06 08:22] LABS: Bacteria 2+ /hpf (None Seen); Mucous, Urine 2+ /hpf (<or=2+); Squamous Epithelial Cells - UA 5-10 SEEN /hpf (5-10)
[2023-12-06 08:23] LABS: Internal QC Validated? YES +Cl - CLEAR BKGD; White Blood Cells 0-5 SEEN /hpf (0-5)
[2023-12-06 08:24] LABS: Pregnancy, Urine Negative Negative; Record Kit Lot#,Urine Preg HCG0000772476
[2023-12-06 08:48] VITALS: BP 114/63; PULSE 64; RESP 16; O2SAT 99
== END 2023-12-06 10:00 | disposition home or self-care (01) ==
PROVIDERS: Emergency Provider Emergency Medicine; PCP Nurse Practitioner Family; Visit Provider Emergency Medicine
DX: K59.00 Constipation, unspecified (principal); R10.32 Left lower quadrant pain; F17.210 Nicotine dependence, cigarettes, uncomplicated; R32 Unspecified urinary incontinence; E66.9 Obesity, unspecified
CPT/HCPCS: 81001; 81025; 87086; 87088; 99285; A4216

== ENCOUNTER 2024-03-13 16:57 | Emergency (ER) | payer MEDICAID, SELFPAY ==
[2024-03-13 16:58] VITALS: BP 135/67; PULSE 61; RESP 16; TEMP 36.6; O2SAT 100; BMI 36.0
--- NOTE | 2024-03-13 20:18 | EX.ED.DYSGE1 ---
HPI <ELIN Santamaria - Last Filed: 03/13/24 21:34> History of Present Illness Chief Complaint: Head Injury Narrative Narrative: Patient fell off the third rung of a ladder and hit her face on a plastic chair. She has a laceration of her left upper eyelid. She states the area below the laceration feels like it has a cut in hurts. She has no ocular pain or visual changes. There was no loss of consciousness, no blood thinners. She has had no nausea or vomiting and is otherwise feeling well. PFSH <ELIN Santamaria - Last Filed: 03/13/24 21:34> [facility] Medical History Hx of gastroesophageal reflux (GERD) Anxiety and depression Neuropathy Home Medications ?Medication ?Instructions ?Recorded ?Last Taken ?Type gabapentin 300 mg capsule 300 mg PO DAILY 06/02/20 08/31/23 History ibuprofen 800 mg tablet 800 mg PO DAILY 07/14/22 Unknown History omeprazole 20 mg capsule,delayed 20 mg PO DAILY 07/14/22 08/31/23 History release escitalopram oxalate 10 mg tablet 10 mg PO DAILY 08/31/23 08/31/23 History escitalopram oxalate 20 mg tablet 20 mg PO DAILY 08/31/23 08/31/23 History gabapentin 600 mg tablet 600 mg PO QHS 08/31/23 08/30/23 History methylphenidate HCl 54 mg 54 mg PO DAILY 08/31/23 08/31/23 History tablet,extended release 24 hr ondansetron 4 mg disintegrating 4 mg PO Q8H PRN PRN Nausea #10 tabs 08/31/23 Unknown Rx tablet Allergy/AdvReac Type Severity Reaction Status Date / Time No Known Allergies Allergy Verified 03/13/24 16:58 Social History Smoking Status: Current every day smoker tobacco type: cigarettes ROS <ELIN Santamaria - Last Filed: 03/13/24 21:34> ROS ED ROS Narrative Eyes: Negative for visual change. GI: Negative for nausea, vomiting. Neuro: Negative for headache. EXAM <ELIN Santamaria Last Filed: 03/13/24 21:34> Physical Exam Narrative Exam Narrative: CONST: Patient sitting in no acute distress. EYES: Normal inspection. PERRL, EOMI. No subconjunctival hemorrhage. HEAD: 1 cm vertical linear laceration inferior left lateral eyebrow. Soft tissue swelling of the lateral upper eyelid. No raccoon eyes or Eid sign, no nasal septal hematoma or epistaxis, no hemotympanum, no CSF otorrhea or rhinorrhea. NECK: Normal inspection. EXTREMITIES: Normal appearance, no pedal edema. NEURO: Alert and answering questions appropriately. PSYCH: Normal affect. Const Vital Signs: 03/13/24 16:58 03/13/24 19:58 03/13/24 20:58 Temperature 97.9 F Temperature Source Oral Pulse Rate 61 79 Respiratory Rate 16 16 Respiratory Effort Normal Non-Labored Respiratory Depth Normal Respiratory Pattern Normal Blood Pressure 135/67 H 131/74 H Blood Pressure Mean 89 93 Pulse Ox 100 99 Oxygen Delivery Method Room Air Room Air <Dr. Michael Beard DO - Last Filed: 03/13/24 21:31> Physical Exam Const Vital Signs: 03/13/24 16:58 03/13/24 19:58 03/13/24 20:58 Temperature 97.9 F Temperature Source Oral Pulse Rate 61 79 Respiratory Rate 16 16 Respiratory Effort Normal Non-Labored Respiratory Depth Normal Respiratory Pattern Normal Blood Pressure 135/67 H 131/74 H Blood Pressure Mean 89 93 Pulse Ox 100 99 Oxygen Delivery Method Room Air Room Air [facility] <ELIN Santamaria - Last Filed: 03/13/24 21:34> [facility] Narrative Medical decision making narrative: Differential: Facial laceration, facial bone fracture, intracranial hemorrhage Patient had a mechanical fall with head injury without loss of consciousness. She is 1 cm left upper eyelid laceration. She also reports pain along lateral canthus crease and inferior periorbital region. She has no deformity or crepitus, no signs of skull fracture. Globes are intact, PERRL, EOMI without pain, no proptosis. CT brain and facial bones showed no acute findings. I repaired the wound with 3 simple interrupted sutures. Tetanus update given and wound care instructions. She was discharged in stable condition. Radiography Diagnostic Testing: Clinical Impression(s) from Imaging Studies Brain CT 03/13/24 20:26 IMPRESSION: Negative head/brain CT without intravenous contrast. Electronically Signed: Rojelio Wallis MD at 21:27 EST , Facial/Sinus 03/13/24 20:26 IMPRESSION: Negative CT facial bones without intravenous contrast. Electronically Signed: Rojelio Wallis MD at 21:28 EST , <Dr. Michael Beard, DO - Last Filed: 03/13/24 21:31> MDM History & Record Review Discussion w/independent historian: Patient Radiography Diagnostic Testing: Clinical Impression(s) from Imaging Studies Brain CT 03/13/24 20:26 IMPRESSION: Negative head/brain CT without intravenous contrast. Electronically Signed: Rojelio Wallis MD at 21:27 EST , Facial/Sinus 03/13/24 20:26 IMPRESSION: Negative CT facial bones without intravenous contrast. Electronically Signed: Rojelio Wallis MD at 21:28 EST , Treatment and Re-Evaluation :: I have personally performed a face to face assessment of the patient and have reviewed the JANELL Note. I performed a substantive portion of the visit including all aspects of the following. My chavez findings include: History is 38-year-old female presenting to the emergency room with left facial injury. Patient fell while changing a light bulb in the garage striking her face on a chair. No loss of consciousness. She notes swelling to the left periorbital region as well as laceration to the upper lid. Exam is there is focal swelling of the left upper lid with some developing hematoma and a 1 cm laceration that is linear in nature. She has tenderness in the inferolateral orbital region. There is no proptosis. EOMI Medical Decison Making CT of the brain facial bones does not show an obvious fracture intracranial hemorrhage or retrobulbar hematoma. Local wound care performed by physician funeral assistant. Patient to be discharged home with supportive care return if worse or concerns Procedures <ELIN Santamaria - Last Filed: 03/13/24 21:34> Lacerations Left upper eyelid: Length: 1 cm Depth: Skin Shape: Linear Prep: Sterile Conditions and Shure-Clens Laceration repair: Irrigated, Lidocaine and Wound explored Number of Sutures/Romance: 3 Suture Information: Ethilon, Simple and 6-0 Discharge Plan Triage Chief Complaint: Head Injury Other Complaint: Laceration ED Midlevel Provider: Elizabeth Noonan ED Provider: Michael Beard Dx/Rx/DC Orders Clinical Impression: Fall, Periorbital hematoma of left eye, Closed head injury, Eyelid laceration, left Instructions: ED Facial Contusion, ED Head Injury (Adult), ED FACIAL LACERATION Suture Tape Prescriptions: No Action gabapentin 300 MG capsule 300 mg PO DAILY omeprazole 20 mg capsule,delayed release(DR/EC) 20 mg PO DAILY ibuprofen 800 MG tablet 800 mg PO DAILY gabapentin 600 mg tablet 600 mg PO QHS methylphenidate HCl 54 mg tablet extended release 24hr 54 mg PO DAILY escitalopram oxalate 20 mg tablet 20 mg PO DAILY escitalopram oxalate 10 mg tablet 10 mg PO DAILY ondansetron 4 mg tablet,disintegrating 4 mg PO Q8H PRN PRN (Reason: Nausea) Qty: 10 0RF Primary Care Provider: Sushma Lindsey NP Referrals: Sushma Lindsey NP, OCCUPATIONAL HEALTH PHYSIOTHERAPIST-C [Primary Care Provider] - 5 Days for suture removal Activity Restrictions/Additional Instructions: Have the stitches removed in 4 or 5 days (Saturday or Saturday). After hitting her head if you develop severe headache, vomiting, confusion, or difficulty moving your arms or legs come back to the emergency room. Print Language: Swedish Disposition Disposition: Home, Self Care
--- NOTE | 2024-03-13 20:26 | CT_ITS ---
EXAM: CT HEAD WITHOUT INTRAVENOUS CONTRAST CLINICAL INDICATION: head injury TECHNIQUE: Multiple axial images were obtained of the head without intravenous contrast. This CT exam was performed using one or more of the following dose reduction techniques: automated exposure control, adjustment of the mA and/or kV according to patient size, and/or use of iterative reconstruction technique. COMPARISON: No relevant prior studies available. FINDINGS: BRAIN AND EXTRA-AXIAL SPACES: Unremarkable. No intra- or extra-axial hemorrhage. No evidence of acute infarct. No intracranial mass or mass effect. There is preservation of the wong/white matter interface. Posterior fossa structures are unremarkable. Ventricles are appropriate for age. No hydrocephalus. Basal cisterns are patent. BONES/JOINTS: Unremarkable. No discrete lytic or blastic abnormalities. SINUSES: Unremarkable as visualized. Clear. MASTOID AIR CELLS: Unremarkable. Clear. ORBITS: Visualized globes, extraocular muscles, optic nerves and retrobulbar fat appear unremarkable. CT/Brain/Head without Contrast IMPRESSION: Negative head/brain CT without intravenous contrast. Electronically Signed: Rojelio Wallis MD at 21:27 EST ,
--- NOTE | 2024-03-13 20:26 | CT_ITS ---
EXAM: CT MAXILLOFACIAL WITHOUT INTRAVENOUS CONTRAST CLINICAL INDICATION: head injury TECHNIQUE: Helically acquired images were obtained of the face without intravenous contrast. This CT exam was performed using one or more of the following dose reduction techniques: automated exposure control, adjustment of the mA and/or kV according to patient size, and/or use of iterative reconstruction technique. COMPARISON: No relevant prior studies available. FINDINGS: BONES/JOINTS: Unremarkable. No displaced fracture. No discrete lytic or blastic abnormalities. SOFT TISSUES: Unremarkable. No focal subcutaneous swelling. No discrete fluid collections. ORBITS: Unremarkable. Both globes are unremarkable. Extraocular muscles are normal. Retrobulbar fat appears unremarkable. SINUSES: Unremarkable as visualized. Clear. MASTOID AIR CELLS: Unremarkable as visualized. Clear. DENTAL: No acute findings. No periodontal osseous erosion. CT/Sinus/Facial Bone IMPRESSION: Negative CT facial bones without intravenous contrast. Electronically Signed: Rojelio Wallis MD at 21:28 EST ,
[2024-03-13] MEDS: Lidocaine 1% (20 ml mdv) 20 ML Vial INFILT (20:31)
[2024-03-13] MEDS: Diphth,Pertuss(Acell),Tet Vac 0.5 ML Vial IM (20:31)
[2024-03-13 20:58] VITALS: BP 131/74; PULSE 79; RESP 16; O2SAT 99
[2024-03-13 21:47] VITALS: BP 128/74; PULSE 79; RESP 16; TEMP 36.8; O2SAT 99
== END 2024-03-13 21:48 | disposition home or self-care (01) ==
PROVIDERS: Emergency Provider Emergency Medicine; PCP Nurse Practitioner Family; Visit Provider Emergency Medicine
DX: S01.112A Laceration without foreign body of left eyelid and periocular area, initial encounter (principal); F17.210 Nicotine dependence, cigarettes, uncomplicated; W11.XXXA Fall on and from ladder, initial encounter; Z23 Encounter for immunization
CPT/HCPCS: 12011; 70450; 70486; 90471; 90715; 99283